=== PATIENT | female | born 1925 | race Asian ===

== ENCOUNTER → 2016-07-06 | Outpatient (CLI) | payer MEDICARE, BC ==
[~2016-07-06] MED LIST: ASPI-664 PO; ATOR10TA65 PO; CYAN100 PO; DIGO125T PO; DONE10TA7 PO; LEVO150T67 PO; MEMA5TAB PO; METO-407 PO; OMEP20CA16 PO; VALS1TAB78 PO
--- NOTE | 2016-07-06 16:31 | RADRPT ---
PROCEDURE: US upper extremity arterial. CLINICAL INDICATION: Pain decreased right radial pulse TECHNIQUE: Multiple sonographic images of the bilateral upper extremity arteries was obtained util izing grayscale, color-flow, compressive sonography and doppler imaging. The images were reviewed o n a PACS workstation. COMPARISON: None. FINDINGS: Velocities and waveforms were obtained as described below. Right arm Right subclavian artery: 32 cm/s; monophasic waveforms Right axillary artery: 54 cm/s; monophasic waveforms Right brachial artery: 40 cm/s; monophasic waveforms Right radial artery: 16 cm/s; monophasic waveforms Right ulnar artery: 22 cm/s; monophasic waveforms Left arm Left subclavian artery: 61 cm/s; biphasic waveforms Left axillary artery: 68 cm/s; biphasic waveforms Left brachial artery: 136 cm/s; biphasic waveforms Left radial artery: 42 cm/s; biphasic waveforms Left ulnar artery: 45 cm/s; biphasic waveforms IMPRESSION: Diffuse monophasic waveforms in the right upper extremity arteries with decreased velocities, suspic ious for a proximal stenosis. Further evaluation with a CT angiogram is recommended. RPTAT: AA .Tolu Webb MD, MD Date Time Electronically viewed and signed by .Tolu Webb MD, on 07/06/2016 16:31 .S/
== END | disposition home or self-care (01) ==
LOC: VAS 14:28
PROVIDERS: ATTEND Internal Medicine
DX: R09.89 Other specified symptoms and signs involving the circulatory and respiratory systems (principal)
CPT/HCPCS: 93923

== ENCOUNTER 2016-08-29 08:32 | Inpatient (IN) | payer MEDICARE, BC ==
[~2016-08-29] VITALS: Ht 149.9 cm; Wt 61.6 kg
[2016-08-29] MEDS ORDERED: SOD CHLORIDE 0.9% 500 ML IV STA (08:41)
--- NOTE | 2016-08-29 08:55 | ERD ---
ER Documentation Chief Complaint Date/Time DATE: 08/29/16 TIME: 08:52 Chief Complaint ALOC more than normal mental status HPI 89-year-old female who is DNR with comfort measures only who presents via EMS. It appears that the patient's daughter arrived at [facility] facility and felt that she was not opening her eyes, she usually opens her eyes. She requested transport. The patient has an advanced directive that states the patient should only be transported if comfort measures cannot be met. The patient does have a history of stroke with residual aphasia, left-sided weakness. Remainder of HPI is very limited. ROS All systems reviewed and are negative except as per history of present illness. Medications Home Meds Reported Medications Magnesium Hydroxide* (Milk Of Magnesia*) 400 Mg/5 Ml Oral.susp, 30 ML PO Q24H Y for CONSTIPATION, ML 08/29/16 Memantine* (Namenda*) 10 Mg Tablet, 10 MG PO DAILY, #30 TAB 08/29/16 Escitalopram Oxalate* (Lexapro*) 5 Mg Tablet, 5 MG PO DAILY, #30 TAB 08/29/16 Donepezil* (Aricept*) 10 Mg Tablet, 10 MG PO DAILY, TAB 08/29/16 Atorvastatin* (Atorvastatin*) 80 Mg Tablet, 80 MG PO QHS, #30 TAB 08/29/16 Digoxin* (Digitek*) 125 Mcg Tablet, 0.125 MG PO DAILY, TAB 04/18/16 Omeprazole* (Omeprazole*) 20 Mg Capsule.dr, 20 MG PO DAILY, #30 CAP 04/18/16 Levothyroxine Sodium* (Levothyroxine Sodium*) 150 Mcg Tablet, 150 MCG PO BEFORE BREAKFAST, #30 TAB 04/18/16 Discontinued Reported Medications Valsartan-Hydrochlorothiazide (Valsartan-HCTZ) 160-25 Mg Tablet, 1 TAB PO DAILY , #30 TAB 04/25/16 Cyanocobalamin* (Vitamin B12*) Unknown Strength Tab, MCG PO DAILY, TAB 04/18/16 Aspirin* (Aspirin* EC) 81 Mg Tablet.dr, 81 MG PO DAILY, TAB 04/18/16 Memantine* (Namenda*) 5 Mg Tablet, 10 MG PO DAILY, #30 TAB 04/18/16 Metoprolol Tartrate* (Lopressor*) 100 Mg Tablet, 100 MG PO BID, #60 TAB TAKE 50MG QAM AND 100MG QHS 04/18/16 Donepezil* (Donepezil*) 10 Mg Tablet, 10 MG PO QHS, #30 TAB 04/18/16 Atorvastatin Calcium (Atorvastatin Calcium) 10 Mg Tablet, 10 MG PO QHS, #30 TAB 04/18/16 Allergies Allergies: Coded Allergies: No Known Allergy (Unverified , 08/29/16) PMhx/Soc History of Surgery: Yes (cholecystectomy, appendectomy) Anesthesia Reaction: No Hx Neurological Disorder: No (DEMENTIA) Hx Respiratory Disorders: No Hx Cardiac Disorders: Yes (AFIB,Pacemaker, HTN, CAD) Hx Psychiatric Problems: No Hx Miscellaneous Medical Probl: Yes (HTN, osteoporosis, OA, dementia, a-fib, B12 def, HLD, LDD, L wrist fx) Hx Alcohol Use: No Hx Substance Use: No Hx Tobacco Use: No FmHx Family History: No diabetes Physical Exam Vitals Vital Signs Date Time Temp Pulse Resp B/P Pulse Ox O2 Delivery O2 Flow Rate FiO2 08/29/16 10:55 99.1 103 24 104/55 99 Room Air 08/29/16 09:51 Nasal Cannula 2 08/29/16 08:44 99.5 93 33 79/70 99 Physical Exam General: No significant distress Head: Normocephalic, atraumatic. Eyes: Pupils equally reactive, EOM intact, and open eyes spontaneously ENT: Moist mucous membranes Neck: Supple, no lymphadenopathy Respiratory: Lungs clear bilaterally, no distress Cardiovascular: RRR, no murmurs, rubs, or gallops Abdominal: Soft, non-tender, non-distended, no peritoneal signs : Deferred MSK: Moving right upper extremity, residual hemiparesis of left side of the body Neurologic: Limited exam, and encephalopathic, motor exam as above Skin: No rash, no significant breakdown Psych: Unable to assess Result Diagram: 08/29/1694408/29/1645 Results 24 hrs Laboratory Tests Test 08/29/16 09:45 08/29/16 10:25 White Blood Count 14.810^3/ul Red Blood Count 3.3610^6/ul Hemoglobin 9.7g/dl Hematocrit 31.0% Mean Corpuscular Volume 92.3fl Mean Corpuscular Hemoglobin 28.9pg Mean Corpuscular Hemoglobin Concent 31.3g/dl Red Cell Distribution Width 16.1% Platelet Count 37506^3/UL Mean Platelet Volume 10.4fl Neutrophils % % Eosinophils % % Neutrophils # 10^3/ul Eosinophils # 10^3/ul Prothrombin Time 14.0Sec Prothrombin Time Ratio 1.1 INR International Normalized Ratio 1.08 Activated Partial Thromboplast Time 28.1Sec Sodium Level 141mmol/L Potassium Level 3.6mmol/L Chloride Level 103mmol/L Carbon Dioxide Level 26mmol/L Anion Gap 16 Blood Urea Nitrogen 51mg/dl Creatinine 0.91mg/dl Glucose Level 184mg/dl Lactic Acid Level 2.1mmol/L Calcium Level 9.6mg/dl Total Bilirubin 0.8mg/dl Direct Bilirubin 0.20mg/dl Indirect Bilirubin 0.8mg/dl Aspartate Amino Transf (AST/SGOT) 150IU/L Alanine Aminotransferase (ALT/SGPT) 186IU/L Alkaline Phosphatase 240IU/L Troponin I 0.124ng/ml Total Protein 6.7g/dl Albumin 3.0g/dl Globulin 3.70g/dl Albumin/Globulin Ratio 0.81 Urine Color ORANGE Urine Clarity SLIGHTLY CLOUDY Urine pH 5.0 Urine Specific [place] 1.020 Urine Ketones NEGATIVE Urine Nitrite NEGATIVE Urine Bilirubin 1+ Urine Ictotest POSITIVE Urine Urobilinogen 1.0 E.U./dL Urine Leukocyte Esterase 2+ Urine Microscopic RBC NONE SEEN/HPF Urine Microscopic WBC >50/HPF Urine Squamous Epithelial Cells FEW Urine Bacteria MODERATE Urine Hemoglobin NEGATIVE Urine Glucose NEGATIVE% Urine Total Protein 1+ Current Medications Medications (Trade) Dose Ordered Sig/Lizett Route PRN Reason Start Time Stop Time Status Last Admin Dose Admin Sodium Chloride (NS) 500 ml @ 500 mls/hr Q1H STAT IV 08/29/16 08:41 08/29/16 09:40 DC 08/29/16 08:58 Sodium Chloride 2110 ml 2,110 ml BOLUS OVER 2 HOURS STAT IV* 08/29/16 09:31 08/29/16 09:32 DC 08/29/16 10:04 Cefepime HCl 50 ml @ 100 mls/hr ONCE STAT IVPB 08/29/16 10:46 08/29/16 11:15 DC 08/29/16 10:57 Vancomycin HCl (Vancocin) 250 ml @ 125 mls/hr ONCE ONCE IVPB 08/29/16 11:00 08/29/16 12:59 08/29/16 11:36 Aspirin 162 mg 162 mg ONCE ONCE PO 08/29/16 11:00 08/29/16 11:01 DC 08/29/16 10:56 Clindamycin HCl/ Dextrose (Cleocin 600 Mg/ D5W (Pmx)) 50 ml @ 50 mls/hr ONCE IVPB 08/29/16 12:30 08/29/16 13:29 Ondansetron HCl (Zofran Inj) 4 mg BRIDGE ORDER PRN IV NAUSEA AND/OR VOMITING 08/29/16 12:30 08/30/16 12:29 Acetaminophen (Tylenol Tab) 650 mg ER BRIDGE PRN PO MILD PAIN/FEVER 08/29/16 12:30 08/30/16 12:29 Procedures/MDM EKG, MONITORS, & DIAGNOSTIC IMAGING: EKG: I reviewed and interpreted a 12-lead EKG. Rhythm: A. fib, rate controlled Ectopy: None Intervals: No abnormalities ST segments: No elevations or depressions T waves: No contiguous inversions Chest x-ray: I reviewed and interpreted a 1 view of the chest Mediastinum: No enlargement Cardiac silhouette: No cardiomegaly Airspace: Right-sided pneumonia Bones: No evidence of fracture CTB IMPRESSION: 1. No intracranial hemorrhage, mass effect or midline shift. 2. An area of subacute to chronic infarct in the right MCA distribution with cortical laminar necrosis, as described above. No associated mass effect. 3. Mild to moderate generalized atrophy. Mild microangiopathic ischemic change. 4. Intracranial atherosclerosis. RPTAT: BB LAB INTERPRETATION: Leukocytosis of 14.8, hemoglobin of 9.7, lactic acid of 2.1, troponin elevation of 0.124 MEDICAL DECISION MAKING: The patient presents the emergency room because of decreased responsiveness. The patient has progressive encephalopathy, she has an advanced directive that clearly states she should only be transferred if comfort measures cannot be met. Her transfer at this point seems to not be consistent with these goals of care. The patient does have hypotension but no fever. The patient appears to have slight dehydration on clinical exam. The family member is not readily available upon arrival. I would like to avoid unnecessary laboratory testing and diagnostic imaging given this patient's goals of care. I believe gentle fluid resuscitation would be appropriate to assist in her comfort however aggressive resuscitation, laboratory testing, antibiotics do not seem to be consistent with this patient's goals of care. We will await family member arrival to discuss plan of care. ER COURSE: The family member arrived. She states that she did not understand the initial goals of care. She wishes the patient to be DNR and DNI with no central line but otherwise aggressive care. I explained to the patient's daughter that comfort measures may be appropriate in this patient's age and comorbidities. She is not ready to make that decision. She wishes to have laboratory testing. Therefore laboratory analysis and diagnostic imaging was initiated. The patient does have Sirs criteria with a low-grade fever, leukocytosis and tachycardia. She has evidence of possible aspiration pneumonia as the patient' s daughter states that she is fed the patient even though she was told not to. Vancomycin, cefepime and clindamycin were provided after 30 cc/kg bolus of saline and blood cultures. The patient's blood pressure has been responsive. Lactic acid around 2. No indication for central line, pressors at this time. continue supportive measures and fluid resuscitation. Based on the patient's goals of care, primary care provider would like to admit to medical surgical floor. I believe this to be reasonable. I kept the patient and/or family informed of laboratory and diagnostic imaging results throughout the emergency room course. DISPOSITION PLAN: Medical surgical admission CONSULTATION: Accepting care team and consultations: I discussed the current laboratory data, diagnostic imaging and emergency care provided. Admitting team: Dr. Young Admitting team indication: Insurance directed Sepsis Documentation: Patient's infectious symptoms have not stabilized and the patient is at risk of rapid decompensation. The patient will be admitted for careful hydration, antibiotic therapy, and infectious source control. SEVERE SEPSIS CRITERIA: Infectious source: Aspiration pneumonia End organ damage indicated by: [Lactate > 2.0 mmol/L Troponin elevation SEPSIS MANAGEMENT Time of recognition of severe sepsis/septic shock: 10:27 AM 3 HOUR BUNDLE Blood cultures x 2 before broad-spectrum antibiotics: Yes 30 ml/kg NS bolus Completed Initial lactate 2.1 Repeat lactate pending SEPTIC SHOCK ASSESSMENT: No lactic acid > 4.0 No persistent hypotension (SBP < 90 or 40 mmHg drop, MAP < 65) despite 30 mL/kg IV fluid bolus VOLUME REASSESSMENT FOR SEPTIC SHOCK: Reevaluation Time: 12:13 PM Temperature of 99.1, heart rate 103, respiratory rate 24, blood pressure 104/55 , pulse ox 99 on room air Heart irregularly irregular Lungs No crackles Skin Warm & dry Cap Refill Less than 2 seconds Peripheral pulses Radially present PERSISTENT HYPOTENSION TREATMENT: Comfort care yes Central line Not Required Vasopressor started Not required I considered further perfusion assessment with CVP measurement, SCVO2, bedside ultrasound volume assessment, passive leg raise, trial of further fluid bolus. And proceeded with 30 ml/kg fluid bolus of NSS, broad spectrum antbiotics, and admission. CRITICAL CARE Critical care time 35 minutes Emergent fluid management while maintaining close respiratory support. Provision of immediate and broad-spectrum antibiotic therapy. Simultaneous assessment for possible sources in order to direct targeted therapy. Consideration for invasive and chemical support to prevent cardiopulmonary collapse. Critical care time is independent of procedures performed. Departure Diagnosis: Primary Impression: Severe sepsis Additional Impressions: Encephalopathy chronic Aspiration pneumonia Aspiration pneumonia type: unspecified Laterality: right Lung location: unspecified part of lung Qualified Code: J69.0 - Aspiration pneumonia of right lung, unspecified aspiration pneumonia type, unspecified part of lung Non-ST elevation myocardial infarction (NSTEMI) DNR (do not resuscitate) DNI (do not intubate) Condition: JENISE Jean-Baptiste MD Aug 29, 2016 08:55
[2016-08-29] MEDS ORDERED: SODIUM CHLORIDE 0.9% 1L BAG IV* STA (09:31)
[2016-08-29 10:04] LABS: ADD SCAN DIFF NO
[2016-08-29 10:10] LABS: ABNORMAL IP MESSAGE 1; HEMOGLOBIN 9.7 g/dl (12.0-16.0); MEAN CORPUSCULAR HEMOGLOBIN 28.9 pg (29.0-33.0); MEAN CORPUSCULAR HGB CONC 31.3 g/dl (32.0-37.0); MEAN CORPUSCULAR VOLUME 92.3 fl (82.0-101.0); MEAN PLATELET VOLUME 10.4 fl (7.4-10.4); PLATELET COUNT 219 10^3/UL (140-415); RED BLOOD COUNT 3.36 10^6/ul (4.20-5.40); RED CELL DISTRIBUTION WIDTH 16.1 % (11.5-14.5); WHITE BLOOD COUNT 14.8 10^3/ul (4.8-10.8)
[2016-08-29] MEDS ORDERED: ATOR80TA75 PO (10:11)
[2016-08-29] MEDS ORDERED: DONE10TA7 PO (10:12)
[2016-08-29] MEDS ORDERED: MEMA10TA16 PO (10:13)
[2016-08-29] MEDS ORDERED: ESCI5TAB PO (10:13)
[2016-08-29] MEDS ORDERED: MAGN400O4 PO (10:14)
[2016-08-29 10:22] LABS: CREATININE 0.91 mg/dl (0.44-1.00)
[2016-08-29 10:23] LABS: ALBUMIN/GLOBULIN RATIO 0.81; BILIRUBIN,DIRECT 0.2 mg/dl (0.00-0.20); BILIRUBIN,INDIRECT 0.8 mg/dl (0-1.1); CALCIUM 9.6 mg/dl (8.4-10.2); TOTAL PROTEIN 6.7 g/dl (6.1-8.1)
[2016-08-29 10:28] LABS: INR 1.08; PARTIAL THROMBOPLASTIN TIME 28.1 Sec (25.0-35.0); PT RATIO 1.1
--- NOTE | 2016-08-29 10:28 | RADRPT ---
PROCEDURE: XR Chest. CLINICAL INDICATION: Shortness of breath TECHNIQUE: Single frontal chest x-ray. COMPARISON: 04/25/2016 FINDINGS: There is a left chest wall dual lead pacer. The cardiac size is mildly enlarged, stable. Aortic vasc ular calcifications are demonstrated. There is no pulmonary vascular congestion. There is questionab le right middle lobe infiltrates. Minimal bibasilar atelectasis is present. The lungs are otherwise clear. No consolidation, effusion, or pneumothorax. Mild degenerative changes of the visualized oss eous structures are visualized. IMPRESSION: 1. Questionable right middle lobe infiltrate obscuring the right heart border. 2. Minimal bibasilar atelectasis. 3. Atherosclerosis with stable cardiomegaly. RPTAT: JJ .Eric Yuan MD, Date Time Electronically viewed and signed by .Eric Yuan MD, MD on 08/29/2016 10:27 .A/
[2016-08-29 10:41] LABS: BILIRUBIN,TOTAL 0.8 mg/dl (0.2-1.3); POTASSIUM 3.6 mmol/L (3.5-5.1)
[2016-08-29 10:44] LABS: TROPONIN-I 0.124 ng/ml (0.00-0.12)
[2016-08-29] MEDS ORDERED: CEFEPIME 2GM/50 ML (PMX) 50 ML IVPB STA (10:46)
[2016-08-29] MEDS ORDERED: VANCOMYCIN 1 GM (PMX) 250 ML IVPB ONE (11:00)
[2016-08-29] MEDS ORDERED: ASPIRIN 81 MG TAB PO ONE (11:00)
--- NOTE | 2016-08-29 11:04 | RADRPT ---
PROCEDURE: CT Brain without contrast. CLINICAL INDICATION: Headache. Possible sepsis. TECHNIQUE: A CT of the brain was performed on a multidetector CT scanner utilizing axial sections from the skull base through the vertex without contrast. Images were reviewed on a high-resolution [email or web address] workstation. Exam CTDI = 44.73 mGy and the DLP = 720.23 mGy-cm. One or more of the following dose reduction techniques were used: Automated exposure control Adjustment of the mA and/or kV according to patient size. Use of iterative reconstruction technique. COMPARISON: CT head 04/13/2015 FINDINGS: There is an area of subacute to chronic infarct in the right MCA distribution within the right poste rior frontal lobe, anterior parietal lobe involving the right frontal operculum, the motor strip and post central gyrus with gyriform hyper densities suggesting laminar necrosis. There is no signific ant associated mass effect or midline shift. There is mild to moderate generalized volume loss with commensurate enlargement of the ventricles and cortical sulci. There is no evidence of intracranial hemorrhage, mass effect or midline shift. No abnormal intra-axial or extra-axial fluid collections are seen. The density of the brain is normal and the pollock/white matter differentiation is well pre served. Mild patchy diffuse deep white matter microangiopathic ischemic change is seen. The osse ous structures are unremarkable. Paranasal sinuses are clear. Vascular calcifications are identifie d. IMPRESSION: 1. No intracranial hemorrhage, mass effect or midline shift. 2. An area of subacute to chronic infarct in the right MCA distribution with cortical laminar necro sis, as described above. No associated mass effect. 3. Mild to moderate generalized atrophy. Mild microangiopathic ischemic change. 4. Intracranial atherosclerosis. RPTAT: BB .Henok Merchant MD, Date Time Electronically viewed and signed by .Henok Merchant MD, on 08/29/2016 11:03 .O/
[2016-08-29 11:08] LABS: ADD UMIC YES; URINE BILIRUBIN (Dip) 1+ (NEGATIVE); URINE BLOOD (Dip) NEGATIVE (NEGATIVE); URINE COLOR ORANGE (YELLOW); URINE GLUCOSE (Dip) NEGATIVE (NEGATIVE); URINE KETONES (Dip) NEGATIVE (NEGATIVE); URINE LEUKOCYTE ESTERASE (Dip) 2+ (NEGATIVE); URINE NITRITE (Dip) NEGATIVE (NEGATIVE); URINE TOTAL PROTEIN (Dip) 1+ (NEGATIVE); URINE UROBILINOGEN (Dip) 1.0 E.U./dL (0.1-1.0)
[2016-08-29 11:31] LABS: URINE RBCS NONE SEEN /HPF (0)
[2016-08-29 11:32] LABS: BACTERIA,URINE MODERATE; ICTOTEST POSITIVE (NEGATIVE); SQUAMOUS EPITHELIAL CELL,UR FEW
[2016-08-29] MEDS ORDERED: ACETAMINOPHEN 325 MG TAB PO PRN ×2 (12:30→15:00)
[2016-08-29] MEDS ORDERED: ONDANSETRON 4 MG INJ IV PRN ×2 (12:30→15:00)
[2016-08-29] MEDS ORDERED: CLINDAMYCIN 600 MG/D5W (PMX) 50 ML IVPB SCH (12:30)
[2016-08-29 13:10] VITALS: TEMP 98.7
[2016-08-29 13:49] VITALS: BP 118/60; PULSE 85; RESP 18
[2016-08-29 14:04] VITALS: Ht 149.9 cm; Wt 61.6 kg
[2016-08-29 14:11] LABS: LYMPHOCYTES # 0.6 10^3/ul (0.8-2.9); MONOCYTE # 0.3 10^3/ul (0.3-0.9); NEUTROPHIL # 11.8 10^3/ul (1.6-7.5)
[2016-08-29] MEDS ORDERED: NACL 0.9% 3 ML SYG IV SCH (15:00)
[2016-08-29] MEDS: DEXTROSE 5%-0.45% NACL 1,000 ML IV SCH (15:32)
[2016-08-29] MEDS ORDERED: MAGNESIUM HYDROXIDE 30ML CUP PO PRN (19:30)
--- NOTE | 2016-08-29 19:50 | PREOPHP ---
DATE OF ADMISSION: 08/29/2016 REASON FOR ADMISSION: Altered mental status. HISTORY OF PRESENT ILLNESS: This 89-year-old female was transferred from [facility] because of some change in mental status. The patient was also in atrial fibrillation, which is not new, but her heart rate was fluctuating. The patient's daughter was concerned and wanted her t ransferred to the hospital. The patient has been a DNR, DNI, comfort measures; however, the patient 's family wanted further evaluation this morning in the emergency room. The patient is unresponsive and unable to give any history. The history was taken from the chart and from talking to the [facility] ter. The patient had a stroke approximately 4 weeks ago. She was at [facility] uro unit after the stroke. The patient has evidence of a right MCA distribution CVA on her CAT scan . She has had left-sided weakness, however, she now does not move arms or legs. The patient has langley d dysphagia and has a G-tube in place. The patient also had an elevated white blood count in the em ergency room with anemia. Her chemistry did show a very slightly elevated troponin level at 0.24. The emergency room doctor, Dr. Cm, did speak to the patient's family. Dr. Cm did speak to me an d we decided to put the patient on a medical surgical floor. PAST MEDICAL HISTORY: The patient has an extensive past medical history. She has chronic atrial fi brillation, hypothyroidism, primary hyperparathyroidism, osteoporosis, cardiac pacemaker, dementia e gretel prior to her recent stroke, history of rectal bleeding, osteoarthritis, frequent falls. PAST SURGICAL HISTORY: Cholecystectomy. CURRENT MEDICATIONS: Include the followin. Aricept 10 mg a day. 2. Atorvastatin 80 mg a day. 3. Digoxin 0.125 mg a day. 4. Escitalopram 5 mg daily. 5. Namenda 10 mg daily. 6. Magnesium hydroxide 400 mg daily. 7. Omeprazole 20 mg a day. 8. Levothyroxine 150 mcg a day. PHYSICAL EXAMINATION: VITAL SIGNS: At this time, temperature 98.3, pulse of 85, respirations 18, blood pressure 118/60, O 2 saturation 95% on room air. GENERAL: The patient is unresponsive. She is not moving her arms or legs. She does not open her e yes or follow simple commands. HEENT: Head normocephalic. No signs of trauma. Nose and mouth normal. NECK: Supple without neck vein distention. LUNGS: Clear to auscultation. HEART: Irregular irregular rhythm. ABDOMEN: With a PEG tube in place, not distended, soft. EXTREMITIES: No peripheral edema. NEUROLOGIC: As mentioned above, unresponsive, not moving her arms or legs spontaneously, not openin g eyes. No response to verbal commands. IMPRESSION: 1. 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 Since that same time, the patient has been essentially unresponsive. She has not shown any real improvement since the cerebrovascular accident. 2. Chronic atrial fibrillation. 3. Altered level of consciousness, according to family, although I am not sure this is just her wax ing and waning from previous cerebrovascular accident. 4. Right middle lobe infiltrate obscuring the right heart border, right-sided pneumonia, possible a spiration. PLAN: 1. I had a discussion with the patient's daughter regarding her advanced directives. Previously kishan cooper was a DNR, DNI, no central lines. I discussed this with the daughter and this will be continu ed. I also recommended that we aim for comfort measures in this patient. I explained to the [facility] er that since the patient had the CVA 3 to 4 weeks ago, she has not made any improvement. I recomme nded, and the patient's daughter agreed to, comfort measures. We will continue antibiotics and IV f luids for now. 2. Check labs in the morning. 3. No aggressive treatment at this time. Dictated By: JENISE GERMAN MD, ND/DYANA Conf#: [id number] DID#: [id number]
[2016-08-29 20:46] VITALS: BP 142/72; RESP 19
[2016-08-29] MEDS: CEFEPIME 1GM/50 ML (PMX) 50 ML IVPB SCH (21:38)
[2016-08-30] MEDS: CLINDAMYCIN 300 MG/D5W (PMX) 50 ML IVPB SCH ×2 (02:17→05:35)
[2016-08-30] MEDS: DEXTROSE 5%-0.45% NACL 1,000 ML IV SCH ×2 (02:18→19:56)
[2016-08-30 05:30] LABS: ADD SCAN DIFF NO
[2016-08-30 05:50] LABS: ALBUMIN 2.4 g/dl (3.3-4.9); ALBUMIN/GLOBULIN RATIO 0.75; BILIRUBIN,INDIRECT 0.3 mg/dl (0-1.1); BILIRUBIN,TOTAL 0.3 mg/dl (0.2-1.3); CALCIUM 9.2 mg/dl (8.4-10.2); CREATININE 0.82 mg/dl (0.44-1.00); POTASSIUM 3.2 mmol/L (3.5-5.1); TOTAL PROTEIN 5.6 g/dl (6.1-8.1)
[2016-08-30 05:51] LABS: ABNORMAL IP MESSAGE 1; BASOPHILS % 0.1 % (0.0-2.0); HEMATOCRIT 27.1 % (37.0-47.0); HEMOGLOBIN 8.7 g/dl (12.0-16.0); LYMPHOCYTES # 0.5 10^3/ul (0.8-2.9); LYMPHOCYTES % 3.9 % (15.0-51.0); MEAN CORPUSCULAR HEMOGLOBIN 29.3 pg (29.0-33.0); MEAN CORPUSCULAR HGB CONC 32.1 g/dl (32.0-37.0); MEAN CORPUSCULAR VOLUME 91.2 fl (82.0-101.0); MEAN PLATELET VOLUME 10.2 fl (7.4-10.4); MONOCYTE # 0.3 10^3/ul (0.3-0.9); MONOCYTES % 2.8 % (0.0-11.0); NEUTROPHIL # 10.8 10^3/ul (1.6-7.5); PLATELET COUNT 171 10^3/UL (140-415); RED BLOOD COUNT 2.97 10^6/ul (4.20-5.40); RED CELL DISTRIBUTION WIDTH 15.8 % (11.5-14.5); WHITE BLOOD COUNT 11.6 10^3/ul (4.8-10.8)
[2016-08-30] MEDS ORDERED: PANTOPRAZOLE (EC) 40 MG TAB PO SCH (06:00)
[2016-08-30 06:26] LABS: NEUTROPHILS % 92.8 % (39.0-77.0)
[2016-08-30] MEDS: LANSOPRAZOLE 30 MG CAP GTB SCH (06:50)
[2016-08-30] MEDS ORDERED: LEVOTHYROXINE 150 MCG TAB GTB SCH (07:00)
[2016-08-30] MEDS ORDERED: LEVOTHYROXINE 150 MCG TAB PO SCH (07:00)
[2016-08-30 08:06] VITALS: BP 117/47; RESP 20
--- NOTE | 2016-08-30 08:46 | PN ---
Date/Time of Note Date/Time of Note DATE: 08/30/16 TIME: 08:43 Assessment/Plan VTE Prophylaxis VTE Prophylaxis Intervention: other Lines/Catheters IV Catheter Type (from Nrsg): Peripheral IV Assessment/Plan Assessment/Plan 1. Altered mental status, labs and abg to be obtained, with hx prior cva and left hemipareses. 2. Elevated troponin, will repeat, and cards to see 3. Abnl liver tests, ultz ordered 4. ? Pneumonia, Ct chest ordered, id to see, antibiotics modified Subjective 24 Hr Interval Summary Subjective hx not possible: other (does not respond to name or gentle painful stim) Exam/Review of Systems Vital Signs Vitals Vital Signs Date Time Temp Pulse Resp B/P Pulse Ox O2 Delivery O2 Flow Rate FiO2 08/30/16 08:06 98.8 95 20 117/47 96 08/29/16 13:49 Room Air 08/29/16 09:51 2 Intake and Output 08/29/16 08/29/16 08/30/16 14:59 22:59 06:59 Intake Total 3410 ml 50 ml 1350 ml Balance 3410 ml 50 ml 1350 ml Exam Neck: No jvd Respiratory: clear to auscultation Cardiovascular: No irregular rhythm Gastrointestinal: soft Extremities: No edema Neurological: No unresponsive Results Result Diagram: 08/30/160 08/30/16 0440 Results 24 hrs Laboratory Tests Test 08/29/16 09:45 08/29/16 10:25 08/29/16 11:20 08/29/16 16:55 White Blood Count 14.8 #H Red Blood Count 3.36 #L Hemoglobin 9.7 #L Hematocrit 31.0 L Mean Corpuscular Volume 92.3 Mean Corpuscular Hemoglobin 28.9 L Mean Corpuscular Hemoglobin Concent 31.3 L Red Cell Distribution Width 16.1 H Platelet Count 219 Mean Platelet Volume 10.4 # Neutrophils % 80.0 H Band Neutrophils % 14.0 H Lymphocytes % 4.0 L Monocytes % 2.0 Eosinophils % Neutrophils # 11.8 H Lymphocytes # 0.6 L Monocytes # 0.3 Eosinophils # Prothrombin Time 14.0 Prothrombin Time Ratio 1.1 INR International Normalized Ratio 1.08 Activated Partial Thromboplast Time 28.1 Sodium Level 141 Potassium Level 3.6 Chloride Level 103 Carbon Dioxide Level 26 Anion Gap 16 Blood Urea Nitrogen 51 H Creatinine 0.91 Glucose Level 184 Lactic Acid Level 2.1 2.7 H 2.9 H Calcium Level 9.6 Total Bilirubin 0.8 Direct Bilirubin 0.20 Indirect Bilirubin 0.8 Aspartate Amino Transf (AST/SGOT) 150 H Alanine Aminotransferase (ALT/SGPT) 186 H Alkaline Phosphatase 240 H Troponin I 0.124 *H Total Protein 6.7 Albumin 3.0 L Globulin 3.70 H Albumin/Globulin Ratio 0.81 Urine Color ORANGE Urine Clarity SLIGHTLY CLOUDY Urine pH 5.0 Urine Specific [place] 1.020 Urine Ketones NEGATIVE Urine Nitrite NEGATIVE Urine Bilirubin 1+ H Urine Ictotest POSITIVE Urine Urobilinogen 1.0 E.U./dL Urine Leukocyte Esterase 2+ H Urine Microscopic RBC NONE SEEN Urine Microscopic WBC >50 Urine Squamous Epithelial Cells FEW Urine Bacteria MODERATE Urine Hemoglobin NEGATIVE Urine Glucose NEGATIVE Urine Total Protein 1+ H Test 08/30/16 04:40 White Blood Count 11.6 #H Red Blood Count 2.97 L Hemoglobin 8.7 L Hematocrit 27.1 L Mean Corpuscular Volume 91.2 Mean Corpuscular Hemoglobin 29.3 Mean Corpuscular Hemoglobin Concent 32.1 Red Cell Distribution Width 15.8 H Platelet Count 171 # Mean Platelet Volume 10.2 Neutrophils % 92.8 H Lymphocytes % 3.9 L Monocytes % 2.8 Eosinophils % 0.0 Basophils % 0.1 Nucleated Red Blood Cells % 0.0 Neutrophils # 10.8 H Lymphocytes # 0.5 L Monocytes # 0.3 Eosinophils # 0.0 Basophils # 0.0 Nucleated Red Blood Cells # 0.0 Sodium Level 140 Potassium Level 3.2 L Chloride Level 113 H Carbon Dioxide Level 21 Anion Gap 9 # Blood Urea Nitrogen 40 #H Creatinine 0.82 Glucose Level 118 # Calcium Level 9.2 Total Bilirubin 0.3 Direct Bilirubin 0.00 # Indirect Bilirubin 0.3 Aspartate Amino Transf (AST/SGOT) 73 H Alanine Aminotransferase (ALT/SGPT) 123 H Alkaline Phosphatase 164 H Total Protein 5.6 #L Albumin 2.4 L Globulin 3.20 Albumin/Globulin Ratio 0.75 Thyroid Stimulating Hormone (TSH) 0.149 L Digoxin Level 0.7 L Medications Medications Current Medications Ondansetron HCl 4 mg 4 mg Q6H PRN IV NAUSEA AND/OR VOMITING; Start 08/29/16 at 15:00 Dextrose/Sodium Chloride 1,000 ml @ 70 mls/hr [id number] IV Last administered on 08/30/16 02:18; Admin Dose 100 MLS/HR; Start 08/29/16 at 15:00 Cefepime HCl (Maxipime 1gm/50 ml (Pmx)) 50 ml @ 100 mls/hr Q12 IVPB Last administered on 08/29/16 21:38; Admin Dose 100 MLS/HR; Start 08/29/16 at 21:00 Acetaminophen (Tylenol Liquid) 650 mg Q6H PRN GTB PAIN LEVEL 1-3 OR FEVER; Start 08/30/16 at 06:00 Digoxin (Digoxin) 0.125 mg DAILY@13 GTB ; Start 08/30/16 at 13:00 Magnesium Hydroxide (Milk Of Mag) 30 ml Q24H PRN GTB CONSTIPATION; Start at 19:30 Lansoprazole (Prevacid) 30 mg DAILY@06 GTB Last administered on 08/30/16 06:50 ; Admin Dose 30 MG; Start 08/30/16 at 07:00 Potassium Chloride (Potassium Chloride Pwd/Soln) 40 meq BID GTB ; Start at 09:00; Stop 08/30/16 at 14:00; Status UNV Atorvastatin Calcium (Lipitor) 40 mg HS GTB ; Start 08/30/16 at 21:00; Status UNV CHANG BECERRA MD Aug 30, 2016 08:46
[2016-08-30] MEDS: CEFEPIME 1GM/50 ML (PMX) 50 ML IVPB SCH (08:52)
[2016-08-30] MEDS ORDERED: ACETAMINOPHEN 325 MG TAB GTB PRN (09:00)
--- NOTE | 2016-08-30 09:09 | CONS ---
Date/Time of Note Date/Time of Note DATE: 08/30/16 TIME: 08:58 Assessment/Plan Assessment/Plan Chief Complaint/Hosp Course Impression: # troponin elevation- likely type ii nstemi. flat change on repeat testing, unlikely to be ACS, does have twi on ekg, but no reported symptoms otherwise and HD stable. recent echo with nl lv systolic function. given comorbidities and recent CVA, would recommend medical mgmt at this time. # atrial fibrillation- non valvular, elevated chads score, but had previous falls and off anticoag. 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 d/w family, hold off on anticoag. cont rate control # s/p ppm- recent interrogation will obtain report # h/o htn- controlled # AMS- ? related to infection in setting of recent CVA, defer to ID/primary team Recommendations: - cont statin - cont digoxin, check level - add metoprolol if hrs elevated and bp stable - consider asa daily, would not recommend anticoag as unclear residential benefit - avoid further cardiac testing unless clinical change d/w family at bedside, will follow Problems: Consultation Date/Type/Reason Admit Date/Time Aug 29, 2016 at 12:06 Date of Consultation: Aug 30, 2016 Type of Consultation: Cardiology Reason for Consultation Elevated Troponin Referring Provider: CHANG BECERRA MD Hx of Present Illness Ms. Rodriguez is an 89 y.o. woman with h/o of paroxysmal atrial fibrillation not on anticoagulation due to falls, HTN, dementia, tachy marcy syndrome s/p PPM placement. Pt unfortunately with recent L sided CVA, was admitted to [facility] and had residual L sided weakness and cognitive impairment. Pt currently admitted from rehab facility due to worsening mental status and tachycardia. She has been found to have low level fever, leukocytosis with suspicion for pneumonia. Daughter at bedside provides history as pt is not alert or responsive to voice. Family states pt previous was alert, but not verbally communicating. Has been lethargic with AMS since monday. no report of any chest pain or difficulty breathing. EKG showed afib with hrs 90s and twi in inferior and lateral leads. Subjective hx not possible: pt non-verbal Past Medical History Atrial fibrillation (427.31) (I48.91) recent CVA 07/[address] [facility] s/p TPA with residual L sided weakness Dementia Congestive heart failure (428.0) (I50.9) Dizziness (780.4) (R42) Hyperlipidemia (272.4) (E78.5) Hypertension, essential (401.9) (I10) Orthostatic hypotension (458.0) (I95.1) Osteoarthritis (715.90) (M19.90) Sick sinus syndrome (427.81) (I49.5) s/p PPM Past Surgical History History of Cholecystectomy History of Laminectomy Lumbar History of Pacemaker Placement Family History Significant Family History: other (cad family hx+) Social History Never a smoker Never Drank Alcohol Retired Smoking Status: Never smoker Exam/Review of Systems Vital Signs Vitals Vital Signs Date Time Temp Pulse Resp B/P Pulse Ox O2 Delivery O2 Flow Rate FiO2 08/30/16 08:06 98.8 95 20 117/47 96 08/29/16 13:49 Room Air 08/29/16 09:51 2 Intake and Output 08/29/16 08/29/16 08/30/16 15:00 23:00 07:00 Intake Total 3410 ml 50 ml 1350 ml Balance 3410 ml 50 ml 1350 ml Exam Constitutional: non-verbal, other (does not open eyes to voice) Psych: other (unable to assess ) Head: atraumatic, normocephalic Eyes: nl conjunctiva, nl lids, nl sclera ENMT: mucosa pink and moist Neck: non-tender, supple, No bruits, No jvd Respiratory: clear to auscultation, normal air movement, other (anterior licea ) Cardiovascular: other (irregularly irregular, nl s1s2, ii/vi systolic lLSB), No S3, No S4, No edema Gastrointestinal: non-tender, soft Musculoskeletal: nl extremities to inspection Extremities: normal pulses Neurological: unresponsive Results Result Diagram: 08/30/1643908/30/16439 Results 24 hrs Laboratory Tests Test 08/29/16 09:45 08/29/16 10:25 08/29/16 11:20 08/29/16 16:55 White Blood Count 14.8 #H Red Blood Count 3.36 #L Hemoglobin 9.7 #L Hematocrit 31.0 L Mean Corpuscular Volume 92.3 Mean Corpuscular Hemoglobin 28.9 L Mean Corpuscular Hemoglobin Concent 31.3 L Red Cell Distribution Width 16.1 H Platelet Count 219 Mean Platelet Volume 10.4 # Neutrophils % 80.0 H Band Neutrophils % 14.0 H Lymphocytes % 4.0 L Monocytes % 2.0 Eosinophils % Neutrophils # 11.8 H Lymphocytes # 0.6 L Monocytes # 0.3 Eosinophils # Prothrombin Time 14.0 Prothrombin Time Ratio 1.1 INR International Normalized Ratio 1.08 Activated Partial Thromboplast Time 28.1 Sodium Level 141 Potassium Level 3.6 Chloride Level 103 Carbon Dioxide Level 26 Anion Gap 16 Blood Urea Nitrogen 51 H Creatinine 0.91 Glucose Level 184 Lactic Acid Level 2.1 2.7 H 2.9 H Calcium Level 9.6 Total Bilirubin 0.8 Direct Bilirubin 0.20 Indirect Bilirubin 0.8 Aspartate Amino Transf (AST/SGOT) 150 H Alanine Aminotransferase (ALT/SGPT) 186 H Alkaline Phosphatase 240 H Troponin I 0.124 *H Total Protein 6.7 Albumin 3.0 L Globulin 3.70 H Albumin/Globulin Ratio 0.81 Urine Color ORANGE Urine Clarity SLIGHTLY CLOUDY Urine pH 5.0 Urine Specific [place] 1.020 Urine Ketones NEGATIVE Urine Nitrite NEGATIVE Urine Bilirubin 1+ H Urine Ictotest POSITIVE Urine Urobilinogen 1.0 E.U./dL Urine Leukocyte Esterase 2+ H Urine Microscopic RBC NONE SEEN Urine Microscopic WBC >50 Urine Squamous Epithelial Cells FEW Urine Bacteria MODERATE Urine Hemoglobin NEGATIVE Urine Glucose NEGATIVE Urine Total Protein 1+ H Test 08/30/16 04:40 White Blood Count 11.6 #H Red Blood Count 2.97 L Hemoglobin 8.7 L Hematocrit 27.1 L Mean Corpuscular Volume 91.2 Mean Corpuscular Hemoglobin 29.3 Mean Corpuscular Hemoglobin Concent 32.1 Red Cell Distribution Width 15.8 H Platelet Count 171 # Mean Platelet Volume 10.2 Neutrophils % 92.8 H Lymphocytes % 3.9 L Monocytes % 2.8 Eosinophils % 0.0 Basophils % 0.1 Nucleated Red Blood Cells % 0.0 Neutrophils # 10.8 H Lymphocytes # 0.5 L Monocytes # 0.3 Eosinophils # 0.0 Basophils # 0.0 Nucleated Red Blood Cells # 0.0 Sodium Level 140 Potassium Level 3.2 L Chloride Level 113 H Carbon Dioxide Level 21 Anion Gap 9 # Blood Urea Nitrogen 40 #H Creatinine 0.82 Glucose Level 118 # Calcium Level 9.2 Total Bilirubin 0.3 Direct Bilirubin 0.00 # Indirect Bilirubin 0.3 Aspartate Amino Transf (AST/SGOT) 73 H Alanine Aminotransferase (ALT/SGPT) 123 H Alkaline Phosphatase 164 H Total Protein 5.6 #L Albumin 2.4 L Globulin 3.20 Albumin/Globulin Ratio 0.75 Thyroid Stimulating Hormone (TSH) 0.149 L Digoxin Level 0.7 L Medications Medications Current Medications Ondansetron HCl 4 mg 4 mg Q6H PRN IV NAUSEA AND/OR VOMITING; Start 08/29/16 at 15:00 Dextrose/Sodium Chloride 1,000 ml @ 70 mls/hr [id number] IV Last administered on 08/30/16 02:18; Admin Dose 100 MLS/HR; Start 08/29/16 at 15:00 Cefepime HCl (Maxipime 1gm/50 ml (Pmx)) 50 ml @ 100 mls/hr Q12 IVPB Last administered on 08/30/16 08:52; Admin Dose 100 MLS/HR; Start 08/29/16 at 21:00 Acetaminophen (Tylenol Liquid) 650 mg Q6H PRN GTB PAIN LEVEL 1-3 OR FEVER; Start 08/30/16 at 06:00 Digoxin (Digoxin) 0.125 mg DAILY@13 GTB ; Start 08/30/16 at 13:00 Magnesium Hydroxide (Milk Of Mag) 30 ml Q24H PRN GTB CONSTIPATION; Start at 19:30 Lansoprazole (Prevacid) 30 mg DAILY@06 GTB Last administered on 08/30/16 06:50 ; Admin Dose 30 MG; Start 08/30/16 at 07:00 Potassium Chloride (Potassium Chloride Pwd/Soln) 40 meq Q4H GTB ; Start at 09:00; Stop 08/30/16 at 14:00 Atorvastatin Calcium (Lipitor) 40 mg HS GTB ; Start 08/30/16 at 21:00 Procedures Procedures CXR images reviewed: ? right middle lobe infiltrate no edema CT brain reviewed report in [facility] records reviewed per report 07/2016 Echo from [facility] CONCLUSIONS Summary Normal left ventricular size. There is normal wall thickness. Left ventricular cavity dimensions, wall motion and systolic function are normal. Normal right ventricle structure and function. There is moderate left atrial enlargement. The right atrium is mildly enlarged. Normal aortic valve structure and function. Mitral annular calcification is present. There is mild mitral regurgitation. Normal tricuspid valve structure and function. There is mild tricuspid regurgitation. TAPSE 1.9 cm. SUSAN ZEPEDA. Aug 30, 2016 09:08
[2016-08-30 09:11] LABS: AADO2 Arterial 38.7 mmHg (7.0-24.0); Allen Test ACCEPTAB; Arterial Base Excess -3.5 mmol/L (-3.0-3); Arterial COHb 0.3 % (0.0-3.0); Arterial Fraction of Oxyhgb 95.1 % (93.0-99.0); Arterial HCO3 19.2 mmol/L (22.0-26.0); Arterial MetHb 0.3 % (0.0-1.5); Arterial Total Hemglobin 8.7 g/dl (12.0-18.0); MODE ROOM AIR
[2016-08-30 09:40] LABS: MAGNESIUM 2.4 mg/dl (1.7-2.5)
[2016-08-30 09:46] LABS: TROPONIN-I 0.126 ng/ml (0.00-0.12)
[2016-08-30] MEDS ORDERED: VANCOMYCIN IV PER PHARMACY XX SCH (10:00)
--- NOTE | 2016-08-30 10:08 | RADRPT ---
PROCEDURE: US Abdomen Complete. CLINICAL INDICATION: Abnormal liver tests, cholecystectomy TECHNIQUE: Multiple real-time images were acquired of the patient's abdomen and retroperitoneum ut ilizing a high resolution transducer. COMPARISON: None FINDINGS: The liver measures 10.2 cm and demonstrates normal echogenicity. There is no intrahepatic biliary ductal dilatation. The extrahepatic common bile duct measures 14 mm. The main portal vein is patent with proper directional flow. The gallbladder is absent The visualized pancreas is unremarkable. The spleen measures 6.6 cm. The right kidney measures 8.6 cm. The left kidney measures 8.8 cm. There are no renal calculi or hyd ronephrosis bilaterally. There is a 2.3 cm simple cyst in the lower pole of the right kidney. The visualized abdominal aorta and IVC are grossly unremarkable. IMPRESSION: No significantly increased hepatic echogenicity to suggest fatty infiltration or early chronic liver disease. The main portal vein is patent with proper directional flow. Status post cholecystectomy with dilatation of the common bile duct to 14 mm consistent with post ch olecystectomy change. Atrophic kidneys without significantly increased parenchymal echogenicity to suggest medical renal d isease. 2.3 cm simple right renal cyst. RPTAT: EE Physician Heather Date Time Electronically viewed and signed by Physician Heather on 08/30/2016 10:08 /
--- NOTE | 2016-08-30 10:18 | CONS ---
Date/Time of Note Date/Time of Note DATE: 08/30/16 TIME: 09:58 Assessment/Plan Assessment/Plan Chief Complaint/Hosp Course 1) AMS - unclear if this is normal variation or sign of infection WBC was elevated and slight fever possible infectious sources would include urine, lung and liver (less likely) will change antibiotics to vanco/merrem get nasal swab for MRSA check procalcitonin 2) increase in LFT's abd u/s is pending due to CHF? check BNP and lipase in a.m. 3) fever and mild leukocytosis possible RML infiltrate and probable UTI CT chest is pending start continue vanco and start merrem, to cover for HCAP and aspiration and resistant organisms in urein check procalcitonin, check nasal for MRSA 4) possible RML infiltrate, nurse reports no coughing CT chest is pending check BNP vanco and merrem will cover aspiration and HCAP 5) pyuria urine cx has GNR vanco/merrem will cover resistant organisms Problems: Consultation Date/Type/Reason Admit Date/Time Aug 29, 2016 at 12:06 Date of Consultation: Aug 30, 2016 Type of Consultation: ID Hx of Present Illness pt is unable to give a history pt brought in due to being less responsive she has dementia and developed CVA about one month ago with L sided weakness no reports of vomiting, diarrhea nurse reports no coughing Past Medical History HTN, hyperlipidemia, dementia, hypothyroid, primary hyperparathyroid, CHF, a-fib Past Surgical History choley, lumbar laminectomy, pacer, g-tube placement Social History Smoking Status: Never smoker Exam/Review of Systems Vital Signs Vitals Vital Signs Date Time Temp Pulse Resp B/P Pulse Ox O2 Delivery O2 Flow Rate FiO2 08/30/16 08:06 98.8 95 20 117/47 96 08/29/16 13:49 Room Air 08/29/16 09:51 2 Intake and Output 08/29/16 08/29/16 08/30/16 15:00 23:00 07:00 Intake Total 3410 ml 50 ml 1350 ml Balance 3410 ml 50 ml 1350 ml Exam Constitutional: non-verbal, other (nurse states she will open eyes but she did not for me) Head: normocephalic Respiratory: clear to auscultation Cardiovascular: irregular rhythm Gastrointestinal: non-tender, other (g-tube site is ok), soft Extremities: other (no LE swelling) Neurological: other (L side is flaccid, resistance noted on right) Results Result Diagram: 08/30/16 0440 08/30/16 0440 Results 24 hrs Laboratory Tests Test 08/29/16 10:25 08/29/16 11:20 08/29/16 16:55 08/30/16 04:40 Urine Color ORANGE Urine Clarity SLIGHTLY CLOUDY Urine pH 5.0 Urine Specific [place] 1.020 Urine Ketones NEGATIVE Urine Nitrite NEGATIVE Urine Bilirubin 1+ H Urine Ictotest POSITIVE Urine Urobilinogen 1.0 E.U./dL Urine Leukocyte Esterase 2+ H Urine Microscopic RBC NONE SEEN Urine Microscopic WBC >50 Urine Squamous Epithelial Cells FEW Urine Bacteria MODERATE Urine Hemoglobin NEGATIVE Urine Glucose NEGATIVE Urine Total Protein 1+ H Lactic Acid Level 2.7 H 2.9 H White Blood Count 11.6 #H Red Blood Count 2.97 L Hemoglobin 8.7 L Hematocrit 27.1 L Mean Corpuscular Volume 91.2 Mean Corpuscular Hemoglobin 29.3 Mean Corpuscular Hemoglobin Concent 32.1 Red Cell Distribution Width 15.8 H Platelet Count 171 # Mean Platelet Volume 10.2 Neutrophils % 92.8 H Lymphocytes % 3.9 L Monocytes % 2.8 Eosinophils % 0.0 Basophils % 0.1 Nucleated Red Blood Cells % 0.0 Neutrophils # 10.8 H Lymphocytes # 0.5 L Monocytes # 0.3 Eosinophils # 0.0 Basophils # 0.0 Nucleated Red Blood Cells # 0.0 Sodium Level 140 Potassium Level 3.2 L Chloride Level 113 H Carbon Dioxide Level 21 Anion Gap 9 # Blood Urea Nitrogen 40 #H Creatinine 0.82 Glucose Level 118 # Calcium Level 9.2 Phosphorus Level 3.0 Magnesium Level 2.4 Ferritin Pending Total Bilirubin 0.3 Direct Bilirubin 0.00 # Indirect Bilirubin 0.3 Aspartate Amino Transf (AST/SGOT) 73 H Alanine Aminotransferase (ALT/SGPT) 123 H Alkaline Phosphatase 164 H Troponin I 0.126 *H Total Protein 5.6 #L Albumin 2.4 L Globulin 3.20 Albumin/Globulin Ratio 0.75 Thyroid Stimulating Hormone (TSH) 0.149 L Digoxin Level 0.7 L Test 08/30/16 09:00 Blood Gas Specimen Source Blood arterial Arterial Blood Date Drawn 08/30/2016 9:02:29 AM Arterial Blood pH (Temp corrected) 7.482 H Arterial Blood pCO2 (Temp correct) 26.2 L Arterial Blood pO2 (Temp corrected) 79.7 L Arterial Blood HCO3 19.2 L Arterial Blood Base Excess -3.5 L Arterial Blood Oxygen Saturation 95.7 Jered Test ACCEPTAB Arterial Blood Gas Puncture Site Left Radial Arterial Blood Carboxyhemoglobin 0.3 Arterial Blood Methemoglobin 0.3 Blood Gas A-a O2 Differential 38.7 H Oxyhemoglobin Percent 95.1 Total Hemoglobin 8.7 L Blood Gas Temperature 37.0 Blood Gas Modality ROOM AIR FiO2 21.0 Blood Gas Notified Whom JLD Blood Gas Notified Time 08/30/2016 9:11:00 AM Medications Medications Current Medications Ondansetron HCl 4 mg 4 mg Q6H PRN IV NAUSEA AND/OR VOMITING; Start 08/29/16 at 15:00 Dextrose/Sodium Chloride (D5-1/2ns) 1,000 ml @ 70 mls/hr [id number] IV Last administered on 08/30/16 02:18; Admin Dose 100 MLS/HR; Start 08/29/16 at 15:00 Acetaminophen (Tylenol Liquid) 650 mg Q6H PRN GTB PAIN LEVEL 1-3 OR FEVER; Start 08/30/16 at 06:00 Digoxin (Digoxin) 0.125 mg DAILY@13 GTB ; Start 08/30/16 at 13:00 Magnesium Hydroxide (Milk Of Mag) 30 ml Q24H PRN GTB CONSTIPATION; Start at 19:30 Lansoprazole (Prevacid) 30 mg DAILY@06 GTB Last administered on 08/30/16 06:50 ; Admin Dose 30 MG; Start 08/30/16 at 07:00 Potassium Chloride (Potassium Chloride Pwd/Soln) 40 meq Q4H GTB ; Start at 09:00; Stop 08/30/16 at 14:00 Atorvastatin Calcium 40 mg 40 mg HS GTB ; Start 08/30/16 at 21:00 Meropenem (Merrem 1 Gm/100 ml (Pmx)) 100 ml @ 200 mls/hr Q12 IVPB ; Start 08/30 at 10:00; Status UNV BRAN MIRANDA MD Aug 30, 2016 10:10
[2016-08-30] MEDS: POTASSIUM CHLORIDE 20 MEQ POWDER FOR ORAL SOLN GTB SCH ×2 (10:25→12:52)
[2016-08-30 10:38] LABS: IRON < 10 ug/dl (35-150)
[2016-08-30 10:45] LABS: TOTAL IRON BINDING CAPACITY 219 ug/dl (241-421)
[2016-08-30] MEDS: MEROPENEM 1 GM/100 ML (PMX) 100 ML IVPB SCH ×2 (11:09→21:05)
[2016-08-30] MEDS: SOD FERRIC GLUC COMPLX 125 MG in SOD CHLORIDE 0.9% 100 ML IVPB SCH (12:59)
[2016-08-30] MEDS: DIGOXIN 0.125 MG TAB GTB SCH (13:00)
[2016-08-30] MEDS ORDERED: DIGOXIN 0.125 MG TAB PO SCH (13:00)
[2016-08-30] MEDS ORDERED: VANCOMYCIN 1 GM in NS 250 ML IVPB SCH (13:00)
--- NOTE | 2016-08-30 16:34 | RADRPT ---
PROCEDURE: CT CHEST WITHOUT CONTRAST CLINICAL INDICATION: Pneumonia TECHNIQUE: Volumetrically acquired images of the thorax obtained without intravenous contrast were reformatted in the axial, coronal, and sagittal planes. CTDI = 9.0 mGy; DLP = 290 mGy-cm. One or m ore of the following dose reduction technique were used: Automatic exposure control, adjustment of t he mA and/or kV according to patient size, and use of iterative reconstruction technique. COMPARISON: Chest x-ray from 08/29/2016. FINDINGS: LOWER NECK AND CHEST WALL: There is a left chest wall dual lead pacer device. AIRWAYS: The trachea and large airways are normal. Mild bronchial wall thickening is seen. LUNGS: Patchy bronchocentric area of consolidation and ground-glass is seen in the left upper lobe. Dependent atelectasis is seen.. PLEURA: Small right and trace left pleural effusions are seen with associated atelectasis. MEDIASTINUM: No mediastinal mass. LYMPH NODES: No significant axillary, hilar, or mediastinal lymphadenopathy by CT size criteria. CARDIAC: Moderate cardiomegaly No pericardial effusion or thickening. VASCULAR: The main pulmonary measures up to 36 mm. Aortic and coronary atherosclerotic calcificati ons are present. OSSEOUS: No suspicious osseous lesions. Scattered degenerative changes of the thoracic spine is vis ualized. Limited evaluation of the upper abdomen is unremarkable. IMPRESSION: 1. Mild bronchial wall thickening may be sequela of bronchitis, asthma, or other nonspecific airway inflammation. Bronchocentric area of consolidation and ground-glass is seen in the left upper lobe which may represent an evolving area of bronchopneumonia. 2. Small right and trace left pleural effusions are seen with associated atelectasis. Intercurrent process within the atelectatic right lung cannot be excluded. 3. Moderate cardiomegaly with left chest wall dual lead pacer device. Enlargement of the main pulmo nary artery may suggest pulmonary arterial hypertension. 4. Atherosclerosis. RPTAT:PP .Jaquan Duran MD, MD Date Time Electronically viewed and signed by .Jaquan Duran MD, MD on 08/30/2016 16:34 .V/
[2016-08-30] MEDS ORDERED: MAGNESIUM HYDROXIDE 30ML CUP GTB PRN (19:30)
[2016-08-30 20:10] VITALS: BP 120/59; RESP 21
[2016-08-30] MEDS: ATORVASTATIN 40 MG TAB GTB SCH (21:05)
--- NOTE | 2016-08-30 22:13 | RADRPT ---
Vent Rate: 98 bpm RR Interval: 0 msec OR Interval: 0 msec QRS Duration: 82 msec QT Interval: 332 msec QTC Interval: 423 msec P-R-T [place]: 0 - 29 - 0 degrees Demand pacemaker, interpretation is based on intrinsic rhythm Atrial fibrillation with premature ventricular or aberrantly conducted complexes ST amp; T wave abnormality, consider inferior ischemia or digitalis effect ST amp; T wave abnormality, consider anterolateral ischemia or digitalis effect Abnormal ECG Electronically Signed By: Dexter Garcia [id number]
[2016-08-31] MEDS: DEXTROSE 5%-0.45% NACL 1,000 ML IV SCH (02:18)
[2016-08-31] MEDS: LANSOPRAZOLE 30 MG CAP GTB SCH (05:12)
[2016-08-31] MEDS: LEVOTHYROXINE 125 MCG TAB GTB SCH (06:19)
[2016-08-31 06:37] LABS: ADD SCAN DIFF NO
[2016-08-31 06:44] LABS: ABNORMAL IP MESSAGE 1; HEMATOCRIT 26.3 % (37.0-47.0); HEMOGLOBIN 8.4 g/dl (12.0-16.0); MEAN CORPUSCULAR HEMOGLOBIN 29.1 pg (29.0-33.0); MEAN CORPUSCULAR HGB CONC 31.9 g/dl (32.0-37.0); MEAN PLATELET VOLUME 11.3 fl (7.4-10.4); PLATELET COUNT 151 10^3/UL (140-415); RED BLOOD COUNT 2.89 10^6/ul (4.20-5.40); WHITE BLOOD COUNT 9.9 10^3/ul (4.8-10.8)
[2016-08-31 06:55] LABS: ALBUMIN 2.4 g/dl (3.3-4.9); POTASSIUM 3.3 mmol/L (3.5-5.1)
[2016-08-31 06:57] LABS: ALBUMIN/GLOBULIN RATIO 0.7; BILIRUBIN,INDIRECT 0.4 mg/dl (0-1.1); BILIRUBIN,TOTAL 0.4 mg/dl (0.2-1.3); CREATININE 0.72 mg/dl (0.44-1.00); TOTAL PROTEIN 5.8 g/dl (6.1-8.1)
[2016-08-31 06:58] LABS: CALCIUM 9.5 mg/dl (8.4-10.2)
[2016-08-31 07:00] LABS: MAGNESIUM 2.5 mg/dl (1.7-2.5); PHOSPHORUS 2.4 mg/dl (2.5-4.9)
[2016-08-31 07:35] VITALS: BP 128/79; RESP 20
--- NOTE | 2016-08-31 07:43 | CONS ---
Date/Time of Note Date/Time of Note DATE: 08/31/16 TIME: 07:36 Assessment/Plan Assessment/Plan Chief Complaint/Hosp Course 1) AMS - unclear if this is normal variation or sign of infection WBC was elevated and slight fever possible infectious sources would include urine, lung and liver (less likely) will change antibiotics to vanco/merrem get nasal swab for MRSA check procalcitonin 08/31 - about the same, wbc is back to normal 2) increase in LFT's abd u/s is pending due to CHF? check BNP and lipase in a.m. 08/31 - abd u/s was ok and LFT's are improving BNP was elevated 3) fever and mild leukocytosis possible RML infiltrate and probable UTI CT chest is pending start continue vanco and start merrem, to cover for HCAP and aspiration and resistant organisms in urein check procalcitonin, check nasal for MRSA 4) possible pneumonia, nurse reports no coughing CT chest is pending check BNP vanco and merrem will cover aspiration and HCAP. 08/31 - CT chest has MARY ANNE patchy infiltrate, not an area of usual aspiration will continue treatment for possible HCAP if MRSA screen is negative will d/c vanco 5) pyuria, probable UTI urine cx has GNR vanco/merrem will cover resistant organisms 08/31 - e.coli in urine is very sensitive, continue with merrem Problems: Consultation Date/Type/Reason Admit Date/Time Aug 29, 2016 at 12:06 Initial Consult Date 08/30/16 Type of Consultation: ID Referring Provider: CHANG BECERRA MD 24 HR Interval Summary Free Text/Dictation spoke to nurse, she occasionally opens her eyes no V, D tolerating TF Subjective hx not possible: pt non-verbal Exam/Review of Systems Vital Signs Vitals Vital Signs Date Time Temp Pulse Resp B/P Pulse Ox O2 Delivery O2 Flow Rate FiO2 08/30/16 20:10 98.3 84 21 120/59 97 08/30/16 20:00 Nasal Cannula 2.0 Intake and Output 08/30/16 08/30/16 08/31/16 15:00 23:00 07:00 Intake Total 260 ml 1170 ml 1210 ml Balance 260 ml 1170 ml 1210 ml Exam does not open eyes for me, looks comfortable Constitutional: non-verbal Head: normocephalic Eyes: nl sclera Respiratory: clear to auscultation Cardiovascular: regular rate and rhythm Gastrointestinal: non-tender, soft Extremities: other (L arm has a bit more swelling than R arm, IV is in right hand) Results Result Diagram: 08/31/16 0540 08/31/16 0540 Results 24 hrs Laboratory Tests Test 08/30/16 09:00 08/30/16 14:55 08/31/16 05:40 Blood Gas Specimen Source Blood arterial Arterial Blood Date Drawn 08/30/2016 9:02:29 AM Arterial Blood pH (Temp corrected) 7.482 H Arterial Blood pCO2 (Temp correct) 26.2 L Arterial Blood pO2 (Temp corrected) 79.7 L Arterial Blood HCO3 19.2 L Arterial Blood Base Excess -3.5 L Arterial Blood Oxygen Saturation 95.7 Jered Test ACCEPTAB Arterial Blood Gas Puncture Site Left Radial Arterial Blood Carboxyhemoglobin 0.3 Arterial Blood Methemoglobin 0.3 Blood Gas A-a O2 Differential 38.7 H Oxyhemoglobin Percent 95.1 Total Hemoglobin 8.7 L Blood Gas Temperature 37.0 Blood Gas Modality ROOM AIR FiO2 21.0 Blood Gas Notified Whom JLD Blood Gas Notified Time 08/30/2016 9:11:00 AM Stool Occult Blood NEGATIVE White Blood Count 9.9 Red Blood Count 2.89 L Hemoglobin 8.4 L Hematocrit 26.3 L Mean Corpuscular Volume 91.0 Mean Corpuscular Hemoglobin 29.1 Mean Corpuscular Hemoglobin Concent 31.9 L Red Cell Distribution Width 16.0 H Platelet Count 151 Mean Platelet Volume 11.3 H Neutrophils % Eosinophils % Neutrophils # Eosinophils # Sodium Level 142 Potassium Level 3.3 L Chloride Level 112 H Carbon Dioxide Level 20 L Anion Gap 13 Blood Urea Nitrogen 41 H Creatinine 0.72 Glucose Level 139 Calcium Level 9.5 Phosphorus Level 2.4 L Magnesium Level 2.5 Total Bilirubin 0.4 Direct Bilirubin 0.00 Indirect Bilirubin 0.4 Aspartate Amino Transf (AST/SGOT) 58 H Alanine Aminotransferase (ALT/SGPT) 90 H Alkaline Phosphatase 165 H B-Type Natriuretic Peptide 6310 H Total Protein 5.8 L Albumin 2.4 L Globulin 3.40 H Albumin/Globulin Ratio 0.70 Amylase Level 72 Lipase 191 Medications Medications Current Medications Ondansetron HCl 4 mg 4 mg Q6H PRN IV NAUSEA AND/OR VOMITING; Start 08/29/16 at 15:00 Dextrose/Sodium Chloride (D5-1/2ns) 1,000 ml @ 70 mls/hr [id number] IV Last administered on 08/30/16 19:56; Admin Dose 70 MLS/HR; Start 08/29/16 at 15:00 Acetaminophen (Tylenol Liquid) 650 mg Q6H PRN GTB PAIN LEVEL 1-3 OR FEVER; Start 08/30/16 at 06:00 Digoxin (Digoxin) 0.125 mg DAILY@13 GTB Last administered on 08/30/16 13:00; Admin Dose 0.125 MG; Start 08/30/16 at 13:00 Magnesium Hydroxide (Milk Of Mag) 30 ml Q24H PRN GTB CONSTIPATION; Start at 19:30 Lansoprazole (Prevacid) 30 mg DAILY@06 GTB Last administered on 08/31/16 05:12 ; Admin Dose 30 MG; Start 08/30/16 at 07:00 Atorvastatin Calcium 40 mg 40 mg HS GTB Last administered on 08/30/16 21:05; Admin Dose 40 MG; Start 08/30/16 at 21:00 Meropenem 100 ml @ 200 mls/hr Q12 IVPB Last administered on 08/30/16 21:05; Admin Dose 200 MLS/HR; Start 08/30/16 at 10:00 Ferric Sodium Gluconate Complex 125 mg/Sodium Chloride 110 ml @ 110 mls/hr Q24H IVPB Last administered on 08/30/16 12:59; Admin Dose 110 MLS/HR; Start at 13:00; Stop 09/03/16 at 13:59 Vancomycin HCl/ Sodium Chloride (Vancocin/NS) 150 ml @ 75 mls/hr Q24H IVPB ; Start 08/31/16 at 14:00 BRAN MIRANDA MD Aug 31, 2016 07:42
--- NOTE | 2016-08-31 08:24 | PN ---
Date/Time of Note Date/Time of Note DATE: 08/31/16 TIME: 08:17 Assessment/Plan VTE Prophylaxis VTE Prophylaxis Intervention: other Lines/Catheters IV Catheter Type (from Nrs): Peripheral IV Assessment/Plan Assessment/Plan 1. Pneumonia, abx modified, will start brochodilators 2. Mild chf, lasix given' 3. Altered mental status sec to infection, sl better today 4. Hypokalemia, will replete 5. Atrial fibrillation with controlled ventric response, ? small IN Subjective 24 Hr Interval Summary Subjective hx not possible: other Exam/Review of Systems Vital Signs Vitals Vital Signs Date Time Temp Pulse Resp B/P Pulse Ox O2 Delivery O2 Flow Rate FiO2 08/30/16 20:10 98.3 84 21 120/59 97 08/30/16 20:00 Nasal Cannula 2.0 Intake and Output 08/30/16 08/30/16 08/31/16 15:00 23:00 07:00 Intake Total 260 ml 1170 ml 1210 ml Balance 260 ml 1170 ml 1210 ml Exam Neck: No jvd Respiratory: clear to auscultation, diminished breath sounds Cardiovascular: irregular rhythm Gastrointestinal: soft Extremities: edema (trace sacral edema) Neurological: other (does not respond to name or follow commands, her eyes are open) Results Result Diagram: 08/31/16 0540 08/31/16 0540 Results 24 hrs Laboratory Tests Test 08/30/16 09:00 08/30/16 14:55 08/31/16 05:40 Blood Gas Specimen Source Blood arterial Arterial Blood Date Drawn 08/30/2016 9:02:29 AM Arterial Blood pH (Temp corrected) 7.482 H Arterial Blood pCO2 (Temp correct) 26.2 L Arterial Blood pO2 (Temp corrected) 79.7 L Arterial Blood HCO3 19.2 L Arterial Blood Base Excess -3.5 L Arterial Blood Oxygen Saturation 95.7 Jered Test ACCEPTAB Arterial Blood Gas Puncture Site Left Radial Arterial Blood Carboxyhemoglobin 0.3 Arterial Blood Methemoglobin 0.3 Blood Gas A-a O2 Differential 38.7 H Oxyhemoglobin Percent 95.1 Total Hemoglobin 8.7 L Blood Gas Temperature 37.0 Blood Gas Modality ROOM AIR FiO2 21.0 Blood Gas Notified Whom JLD Blood Gas Notified Time 08/30/2016 9:11:00 AM Stool Occult Blood NEGATIVE White Blood Count 9.9 Red Blood Count 2.89 L Hemoglobin 8.4 L Hematocrit 26.3 L Mean Corpuscular Volume 91.0 Mean Corpuscular Hemoglobin 29.1 Mean Corpuscular Hemoglobin Concent 31.9 L Red Cell Distribution Width 16.0 H Platelet Count 151 Mean Platelet Volume 11.3 H Neutrophils % Eosinophils % Neutrophils # Eosinophils # Sodium Level 142 Potassium Level 3.3 L Chloride Level 112 H Carbon Dioxide Level 20 L Anion Gap 13 Blood Urea Nitrogen 41 H Creatinine 0.72 Glucose Level 139 Calcium Level 9.5 Phosphorus Level 2.4 L Magnesium Level 2.5 Total Bilirubin 0.4 Direct Bilirubin 0.00 Indirect Bilirubin 0.4 Aspartate Amino Transf (AST/SGOT) 58 H Alanine Aminotransferase (ALT/SGPT) 90 H Alkaline Phosphatase 165 H B-Type Natriuretic Peptide 6310 H Total Protein 5.8 L Albumin 2.4 L Globulin 3.40 H Albumin/Globulin Ratio 0.70 Amylase Level 72 Lipase 191 Medications Medications Current Medications Ondansetron HCl 4 mg 4 mg Q6H PRN IV NAUSEA AND/OR VOMITING; Start 08/29/16 at 15:00 Dextrose/Sodium Chloride (D5-1/2ns) 1,000 ml @ 70 mls/hr [id number] IV Last administered on 08/30/16 19:56; Admin Dose 70 MLS/HR; Start 08/29/16 at 15:00 Acetaminophen (Tylenol Liquid) 650 mg Q6H PRN GTB PAIN LEVEL 1-3 OR FEVER; Start 08/30/16 at 06:00 Digoxin (Digoxin) 0.125 mg DAILY@13 GTB Last administered on 08/30/16 13:00; Admin Dose 0.125 MG; Start 08/30/16 at 13:00 Magnesium Hydroxide (Milk Of Mag) 30 ml Q24H PRN GTB CONSTIPATION; Start at 19:30 Lansoprazole (Prevacid) 30 mg DAILY@06 GTB Last administered on 08/31/16 05:12 ; Admin Dose 30 MG; Start 08/30/16 at 07:00 Atorvastatin Calcium 40 mg 40 mg HS GTB Last administered on 08/30/16 21:05; Admin Dose 40 MG; Start 08/30/16 at 21:00 Meropenem 100 ml @ 200 mls/hr Q12 IVPB Last administered on 08/30/16 21:05; Admin Dose 200 MLS/HR; Start 08/30/16 at 10:00 Ferric Sodium Gluconate Complex 125 mg/Sodium Chloride 110 ml @ 110 mls/hr Q24H IVPB Last administered on 08/30/16 12:59; Admin Dose 110 MLS/HR; Start at 13:00; Stop 09/03/16 at 13:59 Vancomycin HCl/ Sodium Chloride (Vancocin/NS) 150 ml @ 75 mls/hr Q24H IVPB ; Start 08/31/16 at 14:00 CHANG BECERRA MD Aug 31, 2016 08:24
[2016-08-31] MEDS: IPRATROPIUM (NEB) 0.5 MG/2.5 ML AMP HHN SCH ×3 (08:28→16:40)
[2016-08-31] MEDS: LEVALBUTEROL (NEB) 0.31 MG/3 ML AMP HHN SCH ×3 (08:28→16:40)
[2016-08-31] MEDS ORDERED: FUROSEMIDE 20 MG INJ IV ONE (08:30)
--- NOTE | 2016-08-31 09:08 | CONS ---
Date/Time of Note Date/Time of Note DATE: 08/31/16 TIME: 09:04 Assessment/Plan Assessment/Plan Chief Complaint/Hosp Course Impression: # troponin elevation- likely type ii nstemi. flat change on repeat testing, unlikely to be ACS, does have twi on ekg, but no reported symptoms otherwise and HD stable. recent echo with nl lv systolic function. given comorbidities and recent CVA, would hold off on further testing if clinically stable and cont medical mgmt at this time. # atrial fibrillation- non valvular, elevated chads score, but had previous falls and off anticoag. pt now with recent cva, overall prognosis nursing home is poor, unclear what benefit she would have from anticoag. d/w family, hold off on anticoag. cont rate control # s/p ppm- recent interrogation will obtain report # h/o htn- controlled # AMS- ? related to infection. 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 Becerra/family at bedside , will follow Problems: Consultation Date/Type/Reason Admit Date/Time Aug 29, 2016 at 12:06 Initial Consult Date 08/30/16 Type of Consultation: cardiology Referring Provider: CHANG BECERRA MD 24 HR Interval Summary Free Text/Dictation no acute events. pt more alert this am, still remains non verbal. able to follow commands, squeezes R hand to command. does not move L hand/leg. can not communicate if any cp/sob. looks comfortable Exam/Review of Systems Vital Signs Vitals Vital Signs Date Time Temp Pulse Resp B/P Pulse Ox O2 Delivery O2 Flow Rate FiO2 08/31/16 07:35 98.8 107 20 128/79 96 08/30/16 20:00 Nasal Cannula 2.0 Intake and Output 08/30/16 08/30/16 08/31/16 14:59 22:59 06:59 Intake Total 260 ml 1170 ml 1210 ml Balance 260 ml 1170 ml 1210 ml Exam Constitutional: non-verbal, follows some commands Psych: other (unable to assess ) Head: atraumatic, normocephalic Eyes: nl conjunctiva, nl lids, nl sclera ENMT: mucosa pink and moist Neck: non-tender, supple, No bruits, No jvd Respiratory: clear to auscultation, normal air movement, other (anterior licea ) Cardiovascular: other (irregularly irregular, nl s1s2, ii/vi systolic lLSB), No S3, No S4, No edema Gastrointestinal: non-tender, soft Musculoskeletal: nl extremities to inspection Extremities: normal pulses Neurological: does not move L side to command Results Result Diagram: 08/31/16 0540 08/31/16 0540 Results 24 hrs Laboratory Tests Test 08/30/16 14:55 08/31/16 05:40 Stool Occult Blood NEGATIVE White Blood Count 9.9 Red Blood Count 2.89 L Hemoglobin 8.4 L Hematocrit 26.3 L Mean Corpuscular Volume 91.0 Mean Corpuscular Hemoglobin 29.1 Mean Corpuscular Hemoglobin Concent 31.9 L Red Cell Distribution Width 16.0 H Platelet Count 151 Mean Platelet Volume 11.3 H Neutrophils % Eosinophils % Neutrophils # Eosinophils # Sodium Level 142 Potassium Level 3.3 L Chloride Level 112 H Carbon Dioxide Level 20 L Anion Gap 13 Blood Urea Nitrogen 41 H Creatinine 0.72 Glucose Level 139 Calcium Level 9.5 Phosphorus Level 2.4 L Magnesium Level 2.5 Total Bilirubin 0.4 Direct Bilirubin 0.00 Indirect Bilirubin 0.4 Aspartate Amino Transf (AST/SGOT) 58 H Alanine Aminotransferase (ALT/SGPT) 90 H Alkaline Phosphatase 165 H B-Type Natriuretic Peptide 6310 H Total Protein 5.8 L Albumin 2.4 L Globulin 3.40 H Albumin/Globulin Ratio 0.70 Amylase Level 72 Lipase 191 Medications Medications Current Medications Ondansetron HCl (Zofran Inj) 4 mg Q6H PRN IV NAUSEA AND/OR VOMITING; Start at 15:00 Acetaminophen (Tylenol Liquid) 650 mg Q6H PRN GTB PAIN LEVEL 1-3 OR FEVER; Start 08/30/16 at 06:00 Digoxin (Digoxin) 0.125 mg DAILY@13 GTB Last administered on 08/30/16 13:00; Admin Dose 0.125 MG; Start 08/30/16 at 13:00 Magnesium Hydroxide (Milk Of Mag) 30 ml Q24H PRN GTB CONSTIPATION; Start at 19:30 Lansoprazole (Prevacid) 30 mg DAILY@06 GTB Last administered on 08/31/16 05:12 ; Admin Dose 30 MG; Start 08/30/16 at 07:00 Atorvastatin Calcium 40 mg 40 mg HS GTB Last administered on 08/30/16 21:05; Admin Dose 40 MG; Start 08/30/16 at 21:00 Meropenem 100 ml @ 200 mls/hr Q12 IVPB Last administered on 08/30/16 21:05; Admin Dose 200 MLS/HR; Start 08/30/16 at 10:00 Ferric Sodium Gluconate Complex 125 mg/Sodium Chloride 110 ml @ 110 mls/hr Q24H IVPB Last administered on 08/30/16 12:59; Admin Dose 110 MLS/HR; Start at 13:00; Stop 09/03/16 at 13:59 Vancomycin HCl/ Sodium Chloride (Vancocin/NS) 150 ml @ 75 mls/hr Q24H IVPB ; Start 08/31/16 at 14:00 Potassium Chloride 40 meq 40 meq Q4H JT ; Start 08/31/16 at 09:00; Stop at 14:00 Sodium Phosphate/ Sodium Chloride (Sodium Phosphate/NS) 255 ml @ 63.75 mls/ hr ONCE ONCE IVPB ; Start 08/31/16 at 10:00; Stop 08/31/16 at 13:59 Enoxaparin Sodium (Lovenox) 40 mg DAILY SC ; Start 08/31/16 at 09:[address] report reviewed 1. Mild bronchial wall thickening may be sequela of bronchitis, asthma, or other nonspecific airway inflammation. Bronchocentric area of consolidation and ground-glass is seen in the left upper lobe which may represent an evolving area of bronchopneumonia. 2. Small right and trace left pleural effusions are seen with associated atelectasis. Intercurrent process within the atelectatic right lung cannot be excluded. 3. Moderate cardiomegaly with left chest wall dual lead pacer device. Enlargement of the main pulmonary artery may suggest pulmonary arterial hypertension. 4. Atherosclerosis. SUSAN ZEPEDA Aug 31, 2016 09:08
[2016-08-31] MEDS: MEROPENEM 1 GM/100 ML (PMX) 100 ML IVPB SCH ×2 (09:23→21:00)
[2016-08-31] MEDS: POTASSIUM CHLORIDE 20 MEQ POWDER FOR ORAL SOLN JT SCH ×2 (09:24→13:19)
[2016-08-31] MEDS: ENOXAPARIN 40 MG/0.4 ML SYG SC SCH (09:24)
[2016-08-31] MEDS ORDERED: SODIUM PHOSPHATE 20 MEQ in SOD CHLORIDE 0.9% 250 ML IVPB ONE (10:00)
[2016-08-31] MEDS: METOPROLOL 25 MG TAB GTB SCH ×2 (10:33→21:00)
[2016-08-31 10:57] LABS: LYMPHOCYTES # 0.4 10^3/ul (0.8-2.9); MONOCYTE # 0.4 10^3/ul (0.3-0.9); NEUTROPHIL # 9.1 10^3/ul (1.6-7.5)
[2016-08-31 10:58] LABS: BURR CELLS 1+
[2016-08-31] MEDS: SOD FERRIC GLUC COMPLX 125 MG in SOD CHLORIDE 0.9% 100 ML IVPB SCH (13:18)
[2016-08-31] MEDS: DIGOXIN 0.125 MG TAB GTB SCH (13:19)
[2016-08-31] MEDS ORDERED: VANCOMYCIN 750 MG in SOD CHLORIDE 0.9% 150 ML IVPB SCH (14:00)
[2016-08-31] MEDS: ACETAMINOPHEN 650MG/20.3ML CUP GTB PRN ×2 (15:15→21:02)
[2016-08-31 20:05] VITALS: BP 129/69; RESP 20
[2016-08-31] MEDS: ATORVASTATIN 40 MG TAB GTB SCH (21:00)
[2016-09-01 05:07] LABS: ADD SCAN DIFF NO
[2016-09-01 05:13] LABS: BASOPHILS % 0.2 % (0.0-2.0); EOSINOPHILS # 0.1 10^3/ul (0.0-0.5); EOSINOPHILS % 0.5 % (0.0-7.0); HEMATOCRIT 36.1 % (37.0-47.0); HEMOGLOBIN 11.8 g/dl (12.0-16.0); LYMPHOCYTES # 1.1 10^3/ul (0.8-2.9); LYMPHOCYTES % 10.5 % (15.0-51.0); MEAN CORPUSCULAR HEMOGLOBIN 28.4 pg (29.0-33.0); MEAN CORPUSCULAR HGB CONC 32.7 g/dl (32.0-37.0); MEAN CORPUSCULAR VOLUME 86.8 fl (82.0-101.0); MEAN PLATELET VOLUME 11.1 fl (7.4-10.4); MONOCYTE # 0.1 10^3/ul (0.3-0.9); MONOCYTES % 0.6 % (0.0-11.0); NEUTROPHIL # 9.4 10^3/ul (1.6-7.5); PLATELET COUNT 128 10^3/UL (140-415); RED BLOOD COUNT 4.16 10^6/ul (4.20-5.40); RED CELL DISTRIBUTION WIDTH 15.9 % (11.5-14.5); WHITE BLOOD COUNT 10.8 10^3/ul (4.8-10.8)
[2016-09-01 05:20] LABS: ALBUMIN 2.4 g/dl (3.3-4.9)
[2016-09-01 05:21] LABS: POTASSIUM 4.7 mmol/L (3.5-5.1)
[2016-09-01 05:22] LABS: CREATININE 0.64 mg/dl (0.44-1.00)
[2016-09-01 05:23] LABS: ALBUMIN/GLOBULIN RATIO 0.68; BILIRUBIN,INDIRECT 0.8 mg/dl (0-1.1); BILIRUBIN,TOTAL 0.8 mg/dl (0.2-1.3); CALCIUM 9.8 mg/dl (8.4-10.2); TOTAL PROTEIN 5.9 g/dl (6.1-8.1)
[2016-09-01 05:25] LABS: PHOSPHORUS 3.1 mg/dl (2.5-4.9)
[2016-09-01 05:26] LABS: MAGNESIUM 2.3 mg/dl (1.7-2.5)
[2016-09-01] MEDS: LANSOPRAZOLE 30 MG CAP GTB SCH (06:00)
[2016-09-01] MEDS: LEVOTHYROXINE 125 MCG TAB GTB SCH (06:00)
--- NOTE | 2016-09-01 07:08 | CONS ---
Date/Time of Note Date/Time of Note DATE: 09/01/16 TIME: 07:02 Assessment/Plan Assessment/Plan Chief Complaint/Hosp Course 1) AMS - unclear if this is normal variation or sign of infection WBC was elevated and slight fever possible infectious sources would include urine, lung and liver (less likely) will change antibiotics to vanco/merrem get nasal swab for MRSA check procalcitonin 08/31 - about the same, wbc is back to normal 09/01 - overall improved but not back to baseline according to the daughter will check ammonia level in a.m. 2) increase in LFT's abd u/s is pending due to CHF? check BNP and lipase in a.m. 08/31 - abd u/s was ok and LFT's are improving BNP was elevated 3) fever and mild leukocytosis possible RML infiltrate and probable UTI CT chest is pending start continue vanco and start merrem, to cover for HCAP and aspiration and resistant organisms in urein check procalcitonin, check nasal for MRSA 4) possible pneumonia, nurse reports no coughing CT chest is pending check BNP vanco and merrem will cover aspiration and HCAP. 08/31 - CT chest has MARY ANNE patchy infiltrate, not an area of usual aspiration will continue treatment for possible HCAP if MRSA screen is negative will d/c vanco 09/01 - neg for MRSA, d/c vanco cotinue with merrem 5) pyuria, probable UTI urine cx has GNR vanco/merrem will cover resistant organisms 08/31 - e.coli in urine is very sensitive, continue with merrem 6) decrease in platelets 09/01 - d/c vanco Problems: Consultation Date/Type/Reason Admit Date/Time Aug 29, 2016 at 12:06 Initial Consult Date 08/30/16 Type of Consultation: ID Referring Provider: CHANG BECERRA MD 24 HR Interval Summary Free Text/Dictation spoke to daughter no coughing overnight no reports of V or D pt was more awake yesterday but not back to baseline, no verbally communicating like before Subjective hx not possible: pt non-verbal Exam/Review of Systems Vital Signs Vitals Vital Signs Date Time Temp Pulse Resp B/P Pulse Ox O2 Delivery O2 Flow Rate FiO2 09/01/16 05:47 2.0 09/01/16 00:00 Nasal Cannula 08/31/16 20:05 97.4 101 20 129/69 99 08/31/16 12:53 28 Intake and Output 08/31/16 08/31/16 09/01/16 14:59 22:59 06:59 Intake Total 350 ml 1385 ml 1000 ml Output Total 1200 ml 550 ml Balance 350 ml 185 ml 450 ml Exam does not respond to verbal stimuli Constitutional: non-verbal Head: normocephalic Eyes: nl sclera Respiratory: clear to auscultation Cardiovascular: regular rate and rhythm Gastrointestinal: non-tender, soft Extremities: other (hands are less swollen) Results Result Diagram: 09/01/16 0430 09/01/16 0430 Results 24 hrs Laboratory Tests Test 08/31/16 11:30 09/01/16 04:30 Stool Occult Blood NEGATIVE White Blood Count 10.8 Red Blood Count 4.16 #L Hemoglobin 11.8 #L Hematocrit 36.1 #L Mean Corpuscular Volume 86.8 Mean Corpuscular Hemoglobin 28.4 L Mean Corpuscular Hemoglobin Concent 32.7 Red Cell Distribution Width 15.9 H Platelet Count 128 L Mean Platelet Volume 11.1 H Neutrophils % 87.0 H Lymphocytes % 10.5 L Monocytes % 0.6 Eosinophils % 0.5 Basophils % 0.2 Nucleated Red Blood Cells % 0.0 Neutrophils # 9.4 H Lymphocytes # 1.1 Monocytes # 0.1 L Eosinophils # 0.1 Basophils # 0.0 Nucleated Red Blood Cells # 0.0 Sodium Level 145 H Potassium Level 4.7 Chloride Level 115 H Carbon Dioxide Level 22 Anion Gap 13 Blood Urea Nitrogen 38 H Creatinine 0.64 Glucose Level 125 Calcium Level 9.8 Phosphorus Level 3.1 Magnesium Level 2.3 Total Bilirubin 0.8 Direct Bilirubin 0.00 Indirect Bilirubin 0.8 Aspartate Amino Transf (AST/SGOT) 72 H Alanine Aminotransferase (ALT/SGPT) 88 H Alkaline Phosphatase 193 H Total Protein 5.9 L Albumin 2.4 L Globulin 3.50 H Albumin/Globulin Ratio 0.68 Medications Medications Current Medications Ondansetron HCl (Zofran Inj) 4 mg Q6H PRN IV NAUSEA AND/OR VOMITING; Start at 15:00 Acetaminophen (Tylenol Liquid) 650 mg Q6H PRN GTB PAIN LEVEL 1-3 OR FEVER Last administered on 08/31/16t 21:02; Admin Dose 650 MG; Start 08/30/16 at 06:00 Digoxin (Digoxin) 0.125 mg DAILY@13 GTB Last administered on 08/31/16 13:19; Admin Dose 0.125 MG; Start 08/30/16 at 13:00 Magnesium Hydroxide (Milk Of Mag) 30 ml Q24H PRN GTB CONSTIPATION; Start at 19:30 Lansoprazole (Prevacid) 30 mg DAILY@06 GTB Last administered on 09/01/16 06:00 ; Admin Dose 30 MG; Start 08/30/16 at 07:00 Atorvastatin Calcium 40 mg 40 mg HS GTB Last administered on 08/31/16 21:00; Admin Dose 40 MG; Start 08/30/16 at 21:00 Meropenem 100 ml @ 200 mls/hr Q12 IVPB Last administered on 08/31/16 21:00; Admin Dose 200 MLS/HR; Start 08/30/16 at 10:00 Ferric Sodium Gluconate Complex 125 mg/Sodium Chloride 110 ml @ 110 mls/hr Q24H IVPB Last administered on 08/31/16 13:18; Admin Dose 110 MLS/HR; Start at 13:00; Stop 09/03/16 at 13:59 Vancomycin HCl/ Sodium Chloride (Vancocin/NS) 150 ml @ 75 mls/hr Q24H IVPB ; Start 08/31/16 at 14:00 Enoxaparin Sodium (Lovenox) 40 mg DAILY SC Last administered on 08/31/16 09:24 ; Admin Dose 40 MG; Start 08/31/16 at 09:00 Metoprolol Tartrate (Lopressor) 12.5 mg BID GTB Last administered on 08/31/16 21:00; Admin Dose 12.5 MG; Start 08/31/16 at 09:30 BRAN MIRANDA MD Sep 01, 2016 07:08
[2016-09-01 07:25] VITALS: BP 110/70; RESP 18
[2016-09-01] MEDS: IPRATROPIUM (NEB) 0.5 MG/2.5 ML AMP HHN SCH ×3 (08:26→16:26)
[2016-09-01] MEDS: LEVALBUTEROL (NEB) 0.31 MG/3 ML AMP HHN SCH ×3 (08:26→16:26)
--- NOTE | 2016-09-01 08:58 | PN ---
Date/Time of Note Date/Time of Note DATE: 09/01/16 TIME: 08:55 Assessment/Plan VTE Prophylaxis VTE Prophylaxis Intervention: other Lines/Catheters IV Catheter Type (from Nrs): Peripheral IV Urinary Cath still in place: Yes Reason Cath still needed: urinary retention Assessment/Plan Assessment/Plan 1. Pneumonia, abx per id, cont bronchodilators 2. Chronic atrial fib 3. Impaired cognition, sec to infection, CT brain unremarkable 4. Abnl liver tests persist, sec to ? infection or passive liver congestion sec to chf (lasix ordered) 5. Started conversation with daughter re hospice care. Subjective 24 Hr Interval Summary Subjective hx not possible: other (does not respond to name or to gentle tactile stim) Exam/Review of Systems Vital Signs Vitals Vital Signs Date Time Temp Pulse Resp B/P Pulse Ox O2 Delivery O2 Flow Rate FiO2 09/01/16 08:28 2.0 09/01/16 08:28 96 16 99 Nasal Cannula 08/31/16 20:05 97.4 129/69 08/31/16 12:53 28 Intake and Output 08/31/16 08/31/16 09/01/16 14:59 22:59 06:59 Intake Total 350 ml 1385 ml 1000 ml Output Total 1200 ml 550 ml Balance 350 ml 185 ml 450 ml Exam Neck: No jvd Respiratory: diminished breath sounds, No crackles/rales Cardiovascular: No irregular rhythm Gastrointestinal: soft Extremities: edema (trace sacral edema) Results Result Diagram: 09/01/16 0430 09/01/16 0430 Results 24 hrs Laboratory Tests Test 08/31/16 11:30 09/01/16 04:30 Stool Occult Blood NEGATIVE White Blood Count 10.8 Red Blood Count 4.16 #L Hemoglobin 11.8 #L Hematocrit 36.1 #L Mean Corpuscular Volume 86.8 Mean Corpuscular Hemoglobin 28.4 L Mean Corpuscular Hemoglobin Concent 32.7 Red Cell Distribution Width 15.9 H Platelet Count 128 L Mean Platelet Volume 11.1 H Neutrophils % 87.0 H Lymphocytes % 10.5 L Monocytes % 0.6 Eosinophils % 0.5 Basophils % 0.2 Nucleated Red Blood Cells % 0.0 Neutrophils # 9.4 H Lymphocytes # 1.1 Monocytes # 0.1 L Eosinophils # 0.1 Basophils # 0.0 Nucleated Red Blood Cells # 0.0 Sodium Level 145 H Potassium Level 4.7 Chloride Level 115 H Carbon Dioxide Level 22 Anion Gap 13 Blood Urea Nitrogen 38 H Creatinine 0.64 Glucose Level 125 Calcium Level 9.8 Phosphorus Level 3.1 Magnesium Level 2.3 Total Bilirubin 0.8 Direct Bilirubin 0.00 Indirect Bilirubin 0.8 Aspartate Amino Transf (AST/SGOT) 72 H Alanine Aminotransferase (ALT/SGPT) 88 H Alkaline Phosphatase 193 H Total Protein 5.9 L Albumin 2.4 L Globulin 3.50 H Albumin/Globulin Ratio 0.68 Medications Medications Current Medications Ondansetron HCl (Zofran Inj) 4 mg Q6H PRN IV NAUSEA AND/OR VOMITING; Start at 15:00 Acetaminophen (Tylenol Liquid) 650 mg Q6H PRN GTB PAIN LEVEL 1-3 OR FEVER Last administered on 08/31/16 21:02; Admin Dose 650 MG; Start 08/30/16 at 06:00 Digoxin (Digoxin) 0.125 mg DAILY@13 GTB Last administered on 08/31/16 13:19; Admin Dose 0.125 MG; Start 08/30/16 at 13:00 Magnesium Hydroxide (Milk Of Mag) 30 ml Q24H PRN GTB CONSTIPATION; Start at 19:30 Lansoprazole (Prevacid) 30 mg DAILY@06 GTB Last administered on 09/01/16 06:00 ; Admin Dose 30 MG; Start 08/30/16 at 07:00 Atorvastatin Calcium 40 mg 40 mg HS GTB Last administered on 08/31/16 21:00; Admin Dose 40 MG; Start 08/30/16 at 21:00 Meropenem 100 ml @ 200 mls/hr Q12 IVPB Last administered on 08/31/16 21:00; Admin Dose 200 MLS/HR; Start 08/30/16 at 10:00 Ferric Sodium Gluconate Complex/ Sodium Chloride (Ferrlecit/NS) 110 ml @ 110 mls/hr Q24H IVPB Last administered on 08/31/16 13:18; Admin Dose 110 MLS/HR; Start 08/30/16 at 13:00; Stop 09/03/16 at 13:59 Enoxaparin Sodium (Lovenox) 40 mg DAILY SC Last administered on 08/31/16 09:24 ; Admin Dose 40 MG; Start 08/31/16 at 09:00 Metoprolol Tartrate (Lopressor) 12.5 mg BID GTB Last administered on 08/31/16t 21:00; Admin Dose 12.5 MG; Start 08/31/16 at 09:30 CHANG BECERRA MD Sep 01, 2016 08:58
[2016-09-01] MEDS ORDERED: FUROSEMIDE 40 MG INJ IV ONE (09:00)
[2016-09-01] MEDS: MEROPENEM 1 GM/100 ML (PMX) 100 ML IVPB SCH ×2 (09:01→21:10)
[2016-09-01] MEDS: METOPROLOL 25 MG TAB GTB SCH ×2 (09:01→21:10)
[2016-09-01] MEDS: ENOXAPARIN 40 MG/0.4 ML SYG SC SCH (09:03)
[2016-09-01] MEDS: DEXTROSE 5% 1,000 ML IV SCH (09:22)
[2016-09-01] MEDS: SOD FERRIC GLUC COMPLX 125 MG in SOD CHLORIDE 0.9% 100 ML IVPB SCH (12:59)
[2016-09-01] MEDS: DIGOXIN 0.125 MG TAB GTB SCH (13:00)
--- NOTE | 2016-09-01 14:18 | CONS ---
DATE OF ADMISSION: 08/29/2016 DATE OF CONSULTATION: 09/01/2016 TYPE OF CONSULTATION: Gastroenterology. Thank you for having me see this patient. HISTORY OF PRESENT ILLNESS: As you know, Ms. Rodriguez is an 89-year-old woman whom I am asked to see r egarding abnormal liver tests. History is obtained from discussion with Dr. Benoit and discussion w ith the patient's daughter. Apparently she is admitted to the hospital because of tachycardia, hypo tension and a fever. Unfortunately, the patient is demented and unable to give any useful informati on. Nonetheless, during that hospitalization, the question of pneumonia has been raised. In additi on, the question of having a myocardial infarction or congestive heart failure was raised as well. Nonetheless, in review of records in 2014 she had normal liver tests. In 2012, she was noted to hav e a common bile duct of 2.2 cm on her CAT scan. Of note, in discussion with the patient's daughter in 1997 she had a common bile duct stone, requiring either surgery or endoscopic procedure. Current ly, she had an ultrasound showing a 1.4 cm duct. During the course of her hospitalization, her AST has gone from 150 to 73 to 58 to 72. Her ALT has gone from 186 to 90 to 88. Her alkaline phosphata se has gone from 240 to 164 to 165 to 193. Currently, the patient is unable to give any useful info rmation. PAST MEDICAL HISTORY: ____ hospitalization back surgery and cholecystectomy. ADULT ILLNESSES: Atrial fibrillation, hyperparathyroidism, hypothyroidism, pacemaker, osteoporosis, dementia, cerebrovascular accident, osteoarthritis. CHILDHOOD: Denies rheumatic fever or scarlet fever. INJURIES: NONE KNOWN. MEDICATIONS: Currently include: 1. Metoprolol. 2. Atrovent. 3. Levalbuterol. 4. Lovenox. 5. Synthroid. 6. Lipitor. 7. Milk of magnesia. 8. Digoxin. 9. Meropenem. 10. Prevacid. 11. Zofran. 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 FAMILY HISTORY: Noncontributory. REVIEW OF SYSTEMS: Negative except as noted above. PHYSICAL EXAMINATION: GENERAL: Shows patient is a well-developed, elderly frail woman lying in bed. VITAL SIGNS: Temperature 98.6, pulse 96, respirations 16, blood pressure 110/70. SKIN: Clear. HEENT: Negative. LUNGS: Clear to percussion and auscultation. CARDIAC: No murmurs, rubs or gallops. ABDOMEN: Soft, nontender, G-tube in place. LABORATORY DATA: Current CBC shows white count 10.8, hemoglobin 11, hematocrit 36, platelets 128. IMPRESSION: Clearly the patient has had cholestatic liver function abnormalities that are new. The y seem to be improving somewhat. Certainly, I note that the question of cholestasis from sepsis is a possibility. However, the patient's ammonia has been relatively mild. The question of passive co ngestion has been raised, but again the evidence of congestive heart failure being present is relati vely mild, as well. What I am concerned about is her dilated common bile duct and the fact that she had common bile duct stones in the past. It is certainly possible that her admission, at which jackie mendoza showed fever, hypotension and tachycardia could have been related to cholangitis. PLAN: I have discussed the above in depth with Dr. Benoit. He will speak with Dr. Evans regarding a dditional antibiotic coverage. At this point, we will follow liver tests. On discussion with Dr. Kerrie quiros he feels given the patient's overall status she is frail and not a candidate for ERCP currentl y. We will certainly need to observe her at this point regarding the future direction of liver test s and reconsider an ERCP pending her clinical course. In addition, given her pacemaker she cannot have an MRCP. Thank you for having me see this patient. Dictated By: NIXON DUKES/DYANA Conf#: [id number] DID#: [id number]
[2016-09-01 20:07] VITALS: BP 155/73; RESP 19
[2016-09-01] MEDS: ATORVASTATIN 40 MG TAB GTB SCH (21:10)
[2016-09-02] MEDS: DEXTROSE 5% 1,000 ML IV SCH ×2 (04:53→15:04)
[2016-09-02 05:19] LABS: ADD SCAN DIFF NO
[2016-09-02 05:24] LABS: BASOPHILS % 0.2 % (0.0-2.0); EOSINOPHILS # 0.1 10^3/ul (0.0-0.5); EOSINOPHILS % 0.7 % (0.0-7.0); HEMOGLOBIN 12.1 g/dl (12.0-16.0); LYMPHOCYTES % 7.4 % (15.0-51.0); MEAN CORPUSCULAR HEMOGLOBIN 28.1 pg (29.0-33.0); MEAN CORPUSCULAR HGB CONC 32.7 g/dl (32.0-37.0); MEAN CORPUSCULAR VOLUME 85.8 fl (82.0-101.0); MEAN PLATELET VOLUME 11.6 fl (7.4-10.4); MONOCYTES % 7.4 % (0.0-11.0); NEUTROPHIL # 10.3 10^3/ul (1.6-7.5); NEUTROPHILS % 79.7 % (39.0-77.0); NUCLEATED RED BLOOD CELLS% 0.2 /100WBC (0.0-0.0); PLATELET COUNT 144 10^3/UL (140-415); RED BLOOD COUNT 4.31 10^6/ul (4.20-5.40); RED CELL DISTRIBUTION WIDTH 15.8 % (11.5-14.5); WHITE BLOOD COUNT 12.9 10^3/ul (4.8-10.8)
[2016-09-02 05:35] LABS: ALBUMIN 2.5 g/dl (3.3-4.9); ALBUMIN/GLOBULIN RATIO 0.71; BILIRUBIN,INDIRECT 0.8 mg/dl (0-1.1); BILIRUBIN,TOTAL 0.8 mg/dl (0.2-1.3); CALCIUM 9.3 mg/dl (8.4-10.2); CREATININE 0.53 mg/dl (0.44-1.00); POTASSIUM 3.9 mmol/L (3.5-5.1)
[2016-09-02] MEDS: LANSOPRAZOLE 30 MG CAP GTB SCH (06:06)
[2016-09-02] MEDS: LEVOTHYROXINE 125 MCG TAB GTB SCH (06:06)
--- NOTE | 2016-09-02 07:04 | CONS ---
Date/Time of Note Date/Time of Note DATE: 09/02/16 TIME: 06:59 Assessment/Plan Assessment/Plan Chief Complaint/Hosp Course 1) AMS - unclear if this is normal variation or sign of infection WBC was elevated and slight fever possible infectious sources would include urine, lung and liver (less likely) will change antibiotics to vanco/merrem get nasal swab for MRSA check procalcitonin 08/31 - about the same, wbc is back to normal 09/01 - overall improved but not back to baseline according to the daughter will check ammonia level in a.m. 09/02 - ammonia level is ok still not waking up for me but is spontaneously moving RUE and resisting opening her R eye 2) increase in LFT's abd u/s is pending due to CHF? check BNP and lipase in a.m. 08/31 - abd u/s was ok and LFT's are improving BNP was elevated 09/02 - overall improved but still elevated merrem should cover biliary bacterial organisms as enterococcus is not common for these infections 3) fever and mild leukocytosis possible RML infiltrate and probable UTI CT chest is pending start continue vanco and start merrem, to cover for HCAP and aspiration and resistant organisms in urein check procalcitonin, check nasal for MRSA 4) possible pneumonia, nurse reports no coughing CT chest is pending check BNP vanco and merrem will cover aspiration and HCAP. 08/31 - CT chest has MARY ANNE patchy infiltrate, not an area of usual aspiration will continue treatment for possible HCAP if MRSA screen is negative will d/c vanco 09/01 - neg for MRSA, d/c vanco cotinue with merrem 09/02 - no change, await procalcitonin 5) pyuria, probable UTI urine cx has GNR vanco/merrem will cover resistant organisms 08/31 - e.coli in urine is very sensitive, continue with merrem 6) decrease in platelets 09/01 - d/c vanco 09/02 - improved platelets today Problems: Consultation Date/Type/Reason Admit Date/Time Aug 29, 2016 at 12:06 Initial Consult Date 08/30/16 Type of Consultation: ID Referring Provider: CHANG BECERRA MD 24 HR Interval Summary Free Text/Dictation no new problems pt did spontaneously move RUE Subjective hx not possible: pt non-verbal Exam/Review of Systems Vital Signs Vitals Vital Signs Date Time Temp Pulse Resp B/P Pulse Ox O2 Delivery O2 Flow Rate FiO2 09/02/16 04:39 2.0 09/01/16 20:07 98.2 81 19 155/73 97 09/01/16 16:27 Nasal Cannula 08/31/16 12:53 28 Intake and Output 09/01/16 09/01/16 09/02/16 15:00 23:00 07:00 Intake Total 210 ml 1170 ml Output Total 2000 ml Balance 210 ml -830 ml Exam she resisted opening her eye on R and spontaneously moved for RUE Constitutional: non-verbal Head: normocephalic Eyes: nl sclera ENMT: other (dry tongue) Respiratory: clear to auscultation Cardiovascular: irregular rhythm Gastrointestinal: non-tender, soft Extremities: other (no significant edema) Results Result Diagram: 09/02/16 0435 09/02/16 0435 Results 24 hrs Laboratory Tests Test 09/01/16 14:28 09/02/16 04:35 Vancomycin Level Trough 5.2 L White Blood Count 12.9 H Red Blood Count 4.31 Hemoglobin 12.1 Hematocrit 37.0 Mean Corpuscular Volume 85.8 Mean Corpuscular Hemoglobin 28.1 L Mean Corpuscular Hemoglobin Concent 32.7 Red Cell Distribution Width 15.8 H Platelet Count 144 Mean Platelet Volume 11.6 H Neutrophils % 79.7 H Lymphocytes % 7.4 L Monocytes % 7.4 Eosinophils % 0.7 Basophils % 0.2 Nucleated Red Blood Cells % 0.2 H Neutrophils # 10.3 H Lymphocytes # 1.0 Monocytes # 1.0 H Eosinophils # 0.1 Basophils # 0.0 Nucleated Red Blood Cells # 0.0 Sodium Level 137 Potassium Level 3.9 Chloride Level 106 Carbon Dioxide Level 26 Anion Gap 9 Blood Urea Nitrogen 33 H Creatinine 0.53 Glucose Level 136 Calcium Level 9.3 Total Bilirubin 0.8 Direct Bilirubin 0.00 Indirect Bilirubin 0.8 Aspartate Amino Transf (AST/SGOT) 59 H Alanine Aminotransferase (ALT/SGPT) 84 H Alkaline Phosphatase 215 H Ammonia < 9 L Total Protein 6.0 L Albumin 2.5 L Globulin 3.50 H Albumin/Globulin Ratio 0.71 Medications Medications Current Medications Ondansetron HCl (Zofran Inj) 4 mg Q6H PRN IV NAUSEA AND/OR VOMITING; Start at 15:00 Acetaminophen (Tylenol Liquid) 650 mg Q6H PRN GTB PAIN LEVEL 1-3 OR FEVER Last administered on 08/31/16 21:02; Admin Dose 650 MG; Start 08/30/16 at 06:00 Digoxin (Digoxin) 0.125 mg DAILY@13 GTB Last administered on 09/01/16 13:00; Admin Dose 0.125 MG; Start 08/30/16 at 13:00 Magnesium Hydroxide (Milk Of Mag) 30 ml Q24H PRN GTB CONSTIPATION; Start at 19:30 Lansoprazole (Prevacid) 30 mg DAILY@06 GTB Last administered on 09/02/16 06:06 ; Admin Dose 30 MG; Start 08/30/16 at 07:00 Atorvastatin Calcium 40 mg 40 mg HS GTB Last administered on 09/01/16 21:10; Admin Dose 40 MG; Start 08/30/16 at 21:00 Meropenem 100 ml @ 200 mls/hr Q12 IVPB Last administered on 09/01/16 21:10; Admin Dose 200 MLS/HR; Start 08/30/16 at 10:00 Ferric Sodium Gluconate Complex/ Sodium Chloride (Ferrlecit/NS) 110 ml @ 110 mls/hr Q24H IVPB Last administered on 09/01/16 12:59; Admin Dose 110 MLS/HR; Start 08/30/16 at 13:00; Stop 09/03/16 at 13:59 Enoxaparin Sodium (Lovenox) 40 mg DAILY SC Last administered on 09/01/16 09:03 ; Admin Dose 40 MG; Start 08/31/16 at 09:00 Metoprolol Tartrate 12.5 mg 12.5 mg BID GTB Last administered on 09/01/16 21: 10; Admin Dose 12.5 MG; Start 08/31/16 at 09:30 Dextrose (D5W) 1,000 ml @ 70 mls/hr [id number] IV Last administered on 09/02/16 04:53; Admin Dose 70 MLS/HR; Start 09/01/16 at 09:00 BRAN MIRANDA MD Sep 02, 2016 07:03
[2016-09-02 07:35] VITALS: BP 139/62; RESP 20
--- NOTE | 2016-09-02 08:17 | PN ---
Date/Time of Note Date/Time of Note DATE: 09/02/16 TIME: 08:11 Assessment/Plan VTE Prophylaxis VTE Prophylaxis Intervention: other Lines/Catheters IV Catheter Type (from Nrs): Peripheral IV Urinary Cath still in place: Yes Reason Cath still needed: urinary retention Assessment/Plan Assessment/Plan 1. Pneumonia being treated 2. No change in cognition, will repeat ct brain and ask neuro to see, EEG needed ? 3. CHF resolving 4. Anemia, recevived 2 units packed cells and stool ob is neg 5. Liver tests sl better, GI raised issue of cholangitis, rev with ID, not a candidate for ercp. 6. Will again rev with daughter---need to consider hospice. 7. BP has inc a bit, add diovan and lasix 20. Subjective 24 Hr Interval Summary Subjective hx not possible: pt non-verbal Exam/Review of Systems Vital Signs Vitals Vital Signs Date Time Temp Pulse Resp B/P Pulse Ox O2 Delivery O2 Flow Rate FiO2 09/02/16 04:39 2.0 09/01/16 20:07 98.2 81 19 155/73 97 09/01/16 20:00 Nasal Cannula 08/31/16 12:53 28 Intake and Output 09/01/16 09/01/16 09/02/16 15:00 23:00 07:00 Intake Total 210 ml 1170 ml 1110 ml Output Total 2000 ml 600 ml Balance 210 ml -830 ml 510 ml Exam Neck: No jvd Respiratory: clear to auscultation, diminished breath sounds Cardiovascular: regular rate and rhythm Gastrointestinal: soft Extremities: edema (1+ sacral edema) Neurological: other (no response to verbal or tactile stim) Results Result Diagram: 09/02/16 0435 09/02/16 0435 Results 24 hrs Laboratory Tests Test 09/01/16 14:28 09/02/16 04:35 Vancomycin Level Trough 5.2 L White Blood Count 12.9 H Red Blood Count 4.31 Hemoglobin 12.1 Hematocrit 37.0 Mean Corpuscular Volume 85.8 Mean Corpuscular Hemoglobin 28.1 L Mean Corpuscular Hemoglobin Concent 32.7 Red Cell Distribution Width 15.8 H Platelet Count 144 Mean Platelet Volume 11.6 H Neutrophils % 79.7 H Lymphocytes % 7.4 L Monocytes % 7.4 Eosinophils % 0.7 Basophils % 0.2 Nucleated Red Blood Cells % 0.2 H Neutrophils # 10.3 H Lymphocytes # 1.0 Monocytes # 1.0 H Eosinophils # 0.1 Basophils # 0.0 Nucleated Red Blood Cells # 0.0 Sodium Level 137 Potassium Level 3.9 Chloride Level 106 Carbon Dioxide Level 26 Anion Gap 9 Blood Urea Nitrogen 33 H Creatinine 0.53 Glucose Level 136 Calcium Level 9.3 Total Bilirubin 0.8 Direct Bilirubin 0.00 Indirect Bilirubin 0.8 Aspartate Amino Transf (AST/SGOT) 59 H Alanine Aminotransferase (ALT/SGPT) 84 H Alkaline Phosphatase 215 H Ammonia < 9 L Total Protein 6.0 L Albumin 2.5 L Globulin 3.50 H Albumin/Globulin Ratio 0.71 Medications Medications Current Medications Ondansetron HCl (Zofran Inj) 4 mg Q6H PRN IV NAUSEA AND/OR VOMITING; Start at 15:00 Acetaminophen (Tylenol Liquid) 650 mg Q6H PRN GTB PAIN LEVEL 1-3 OR FEVER Last administered on 08/31/16 21:02; Admin Dose 650 MG; Start 08/30/16 at 06:00 Digoxin (Digoxin) 0.125 mg DAILY@13 GTB Last administered on 09/01/16 13:00; Admin Dose 0.125 MG; Start 08/30/16 at 13:00 Magnesium Hydroxide (Milk Of Mag) 30 ml Q24H PRN GTB CONSTIPATION; Start at 19:30 Lansoprazole (Prevacid) 30 mg DAILY@06 GTB Last administered on 09/02/16 06:06 ; Admin Dose 30 MG; Start 08/30/16 at 07:00 Atorvastatin Calcium 40 mg 40 mg HS GTB Last administered on 09/01/16 21:10; Admin Dose 40 MG; Start 08/30/16 at 21:00 Ferric Sodium Gluconate Complex/ Sodium Chloride (Ferrlecit/NS) 110 ml @ 110 mls/hr Q24H IVPB Last administered on 09/01/16 12:59; Admin Dose 110 MLS/HR; Start 08/30/16 at 13:00; Stop 09/03/16 at 13:59 Enoxaparin Sodium (Lovenox) 40 mg DAILY SC Last administered on 09/01/16 09:03 ; Admin Dose 40 MG; Start 08/31/16 at 09:00 Metoprolol Tartrate 12.5 mg 12.5 mg BID GTB Last administered on 09/01/16 21: 10; Admin Dose 12.5 MG; Start 08/31/16 at 09:30 Dextrose 1,000 ml @ 70 mls/hr [id number] IV Last administered on 09/02/16 04:53 ; Admin Dose 70 MLS/HR; Start 09/01/16 at 09:00 Meropenem (Merrem 1 Gm/100 ml (Pmx)) 100 ml @ 200 mls/hr Q8 IVPB ; Start at 08:00 CHANG BECERRA MD Sep 02, 2016 08:17
[2016-09-02] MEDS ORDERED: POTASSIUM CHLORIDE 20 MEQ POWDER FOR ORAL SOLN GTB ONE (08:30)
--- NOTE | 2016-09-02 08:39 | CONS ---
Date/Time of Note Date/Time of Note DATE: 09/02/16 TIME: 08:29 Consult Date/Type/Reason Admit Date/Time Aug 29, 2016 at 12:06 Initial Consult Date 08/30/16 Type of Consultation: GI Ordering Provider: CHANG BECERRA MD Subjective Unable to speak Daughter at bedside Tolerating tube feeding Objective Vital Signs Date Time Temp Pulse Resp B/P Pulse Ox O2 Delivery O2 Flow Rate FiO2 09/02/16 04:39 2.0 09/01/16 20:07 98.2 81 19 155/73 97 09/01/16 20:00 Nasal Cannula 08/31/16 12:53 28 Chest: clear Cardiac: no m,r,g Abdomen: G tube in place, soft non tender Intake and Output 09/01/16 09/01/16 09/02/16 15:00 23:00 07:00 Intake Total 210 ml 1170 ml 1110 ml Output Total 2000 ml 600 ml Balance 210 ml -830 ml 510 ml Results/Medications Result Diagram: 09/02/16 0435 09/02/16 0435 Results 24 hrs Laboratory Tests Test 09/01/16 14:28 09/02/16 04:35 Vancomycin Level Trough 5.2 L White Blood Count 12.9 H Red Blood Count 4.31 Hemoglobin 12.1 Hematocrit 37.0 Mean Corpuscular Volume 85.8 Mean Corpuscular Hemoglobin 28.1 L Mean Corpuscular Hemoglobin Concent 32.7 Red Cell Distribution Width 15.8 H Platelet Count 144 Mean Platelet Volume 11.6 H Neutrophils % 79.7 H Lymphocytes % 7.4 L Monocytes % 7.4 Eosinophils % 0.7 Basophils % 0.2 Nucleated Red Blood Cells % 0.2 H Neutrophils # 10.3 H Lymphocytes # 1.0 Monocytes # 1.0 H Eosinophils # 0.1 Basophils # 0.0 Nucleated Red Blood Cells # 0.0 Sodium Level 137 Potassium Level 3.9 Chloride Level 106 Carbon Dioxide Level 26 Anion Gap 9 Blood Urea Nitrogen 33 H Creatinine 0.53 Glucose Level 136 Calcium Level 9.3 Total Bilirubin 0.8 Direct Bilirubin 0.00 Indirect Bilirubin 0.8 Aspartate Amino Transf (AST/SGOT) 59 H Alanine Aminotransferase (ALT/SGPT) 84 H Alkaline Phosphatase 215 H Ammonia < 9 L Total Protein 6.0 L Albumin 2.5 L Globulin 3.50 H Albumin/Globulin Ratio 0.71 Medications Current Medications Ondansetron HCl (Zofran Inj) 4 mg Q6H PRN IV NAUSEA AND/OR VOMITING; Start at 15:00 Acetaminophen (Tylenol Liquid) 650 mg Q6H PRN GTB PAIN LEVEL 1-3 OR FEVER Last administered on 08/31/16 21:02; Admin Dose 650 MG; Start 08/30/16 at 06:00 Digoxin (Digoxin) 0.125 mg DAILY@13 GTB Last administered on 09/01/16 13:00; Admin Dose 0.125 MG; Start 08/30/16 at 13:00 Magnesium Hydroxide (Milk Of Mag) 30 ml Q24H PRN GTB CONSTIPATION; Start at 19:30 Lansoprazole (Prevacid) 30 mg DAILY@06 GTB Last administered on 09/02/16 06:06 ; Admin Dose 30 MG; Start 08/30/16 at 07:00 Atorvastatin Calcium 40 mg 40 mg HS GTB Last administered on 09/01/16 21:10; Admin Dose 40 MG; Start 08/30/16 at 21:00 Ferric Sodium Gluconate Complex/ Sodium Chloride (Ferrlecit/NS) 110 ml @ 110 mls/hr Q24H IVPB Last administered on 09/01/16 12:59; Admin Dose 110 MLS/HR; Start 08/30/16 at 13:00; Stop 09/03/16 at 13:59 Enoxaparin Sodium (Lovenox) 40 mg DAILY SC Last administered on 09/01/16 09:03 ; Admin Dose 40 MG; Start 08/31/16 at 09:00 Metoprolol Tartrate 12.5 mg 12.5 mg BID GTB Last administered on 09/01/16 21: 10; Admin Dose 12.5 MG; Start 08/31/16 at 09:30 Dextrose 1,000 ml @ 70 mls/hr [id number] IV Last administered on 09/02/16 04:53 ; Admin Dose 70 MLS/HR; Start 09/01/16 at 09:00 Meropenem (Merrem 1 Gm/100 ml (Pmx)) 100 ml @ 200 mls/hr Q8 IVPB ; Start at 08:00 Aspirin (Aspirin) 81 mg DAILY NGT ; Start 09/02/16 at 09:00 Valsartan (Diovan) 80 mg DAILY GTB ; Start 09/02/16 at 09:00 Furosemide (Lasix) 20 mg DAILY@06 GTB ; Start 09/02/16 at 09:00 Potassium Chloride (Potassium Chloride Pwd/Soln) 20 meq ONCE ONCE GTB ; Start 09/02/16 at 08:30; Stop 09/02/16 at 08:31 Assessment/Plan Chief Complaint/Hosp Course Impression: 1. Abnormal cholestatic liver tests and dilated CBD with history of symptomatic choledocholithiasis in past - ? recurrent choledocholithiasis Plan: 1. Discussed suspected diagnosis with daughter and Dr. Becerra 2. Antibiotic management per Dr. Evans 3. Would consider MRCP, but can not do MRCP in face of pacemaker 4. Given persistent cholestatic LFTs and elevated WBC will need to reconsider ERCP; Will leave decision to Dr. Becerra and family given overall status 5. I will see intermittently at this point. Please call if problems develop in interim Problems: NIXON ÁLVAREZ MD Sep 02, 2016 08:39
[2016-09-02] MEDS: MEROPENEM 1 GM/100 ML (PMX) 100 ML IVPB SCH ×3 (09:34→22:08)
[2016-09-02] MEDS: VALSARTAN 80 MG TAB GTB SCH (09:35)
[2016-09-02] MEDS: ASPIRIN 81 MG TAB NGT SCH (09:35)
[2016-09-02] MEDS: METOPROLOL 25 MG TAB GTB SCH ×2 (09:36→22:06)
[2016-09-02] MEDS: FUROSEMIDE 20 MG TAB GTB SCH (09:41)
[2016-09-02] MEDS: ENOXAPARIN 40 MG/0.4 ML SYG SC SCH (09:41)
[2016-09-02 09:57] LABS: AADO2 Arterial 31.6 mmHg (7.0-24.0); Allen Test ACCEPTAB; Arterial Base Excess 1.5 mmol/L (-3.0-3); Arterial COHb 0.7 % (0.0-3.0); Arterial MetHb 0.3 % (0.0-1.5); Arterial Total Hemglobin 13.3 g/dl (12.0-18.0); MODE ROOM AIR
[2016-09-02] MEDS: LEVALBUTEROL (NEB) 0.31 MG/3 ML AMP HHN SCH ×3 (10:00→17:00)
[2016-09-02] MEDS: IPRATROPIUM (NEB) 0.5 MG/2.5 ML AMP HHN SCH ×3 (10:00→17:00)
--- NOTE | 2016-09-02 11:58 | RADRPT ---
PROCEDURE: CT Brain without. CLINICAL INDICATION: Altered mental status. Dementia. TECHNIQUE: A CT of the brain was performed on multidetector high-resolution CT scanner utilizing a xial sections from the skull base through the vertex without contrast. The scan was reviewed in sof t tissue brain and high frequency resolution bone algorithm windows. Images were reviewed on a high -resolution PACS workstation. One or more the following does reduction techniques were utilized: Aut omated exposure control, adjustment of the mA/ or kV according to patient's size, or use of iterativ e reconstruction technique. The exam CTDI = 43.95 mGy and the DLP = 720.23 mGy-cm. COMPARISON: Brain CT 08/29/2016. FINDINGS: The ventricles and sulci are mildly to moderately prominent indicative of volume loss. There is mild cerebellar volume loss. There is no intracranial hemorrhage, mass effect or midline shift. No abn ormal intra-axial or extra-axial fluid collections are seen. The pollokc/white matter differentiation i s preserved. An area of subacute to chronic infarct is again noted in the right MCA distribution within the right posterior frontal lobe, anterior parietal lobe with gyriform hyperdensities suggestive of laminar n ecrosis. There are mild to moderate scattered foci of hypoattenuation in the white matter, which are nonspeci fic in etiology but likely reflect chronic small vessel ischemic changes. There are mild to moderat e intracranial vascular calcifications consistent with atherosclerosis. The visualized paranasal sin uses are essentially clear. Left parietal scalp swelling is noted without underlying skull fracture. IMPRESSION: 1. 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 Otherw ise no acute intracranial hemorrhage, acute new transcortical infarction or mass effect. 2. Mild to moderate intracranial atherosclerosis and chronic small vessel ischemic changes. 3. Mild to moderate generalized cerebral and cerebellar volume loss. 4. Left parietal scalp swelling is noted without underlying skull fracture. RPTAT: HFN .Maame Matos MD, MD Date Time Electronically viewed and signed by .Maame Matos MD, MD on 09/02/2016 11:57 .N/
--- NOTE | 2016-09-02 12:19 | RADRPT ---
PROCEDURE: CHEST 1VW CLINICAL INDICATION: Shortness of breath TECHNIQUE: Single frontal view of the chest was obtained COMPARISON: 08/29/2016 FINDINGS: Stable left chest wall dual lead pacer device. The cardiac size is mildly enlarged, stable. Aortic vascular calcifications are demonstrated. There is worsening mild pulmonary vascular congestion. Bibasilar atelectasis. The lungs are otherwise clear. No consolidation, effusion, or pneumothorax. Mild degenerative changes of the visualized osseous structures are visualized. IMPRESSION: 1. Worsening mild pulmonary vascular congestion. 2. Atherosclerosis. RPTAT:PP .Jaquan Duran MD, Date Time Electronically viewed and signed by .Jaquan Duran MD, on 09/02/2016 12:18 .V/
[2016-09-02] MEDS: SOD FERRIC GLUC COMPLX 125 MG in SOD CHLORIDE 0.9% 100 ML IVPB SCH (12:25)
[2016-09-02] MEDS: DIGOXIN 0.125 MG TAB GTB SCH (12:26)
--- NOTE | 2016-09-02 14:47 | CONS ---
Date/Time of Note Date/Time of Note DATE: 09/02/16 TIME: 14:38 Assessment/Plan Assessment/Plan Chief Complaint/Hosp Course Stroke and AMS Problems: Additional Assessment/Plan This 89-year-old female was transferred from [facility] due to altered mental status. 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 The patient has been a DNR, DNI, comfort measures. The patient has had dysphagia and has a G-tube in place. The patient also had an elevated white blood count in the emergency room with anemia. Her chemistry did show a very slightly elevated troponin level at 0.24. Chest X Ray showed right middle lobe infiltrate. CT brain showed subacute right MCA infarct. Plan: 1 Continue present management 2 EEG 3 Discussed with patients daughter who is present in the room 4 will follow Consultation Date/Type/Reason Admit Date/Time Aug 29, 2016 at 12:06 Date of Consultation: Sep 02, 2016 Reason for Consultation Stroke and AMS Referring Provider: JENISE GERMAN MD Hx of Present Illness This 89-year-old female was transferred from [facility] due to altered mental status. 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 The patient has been a DNR, DNI, comfort measures. The patient has had dysphagia and has a G-tube in place. The patient also had an elevated white blood count in the emergency room with anemia. Her chemistry did show a very slightly elevated troponin level at 0.24. Chest X Ray showed right middle lobe infiltrate. CT brain showed subacute right MCA infarct. Subjective hx not possible: pt non-verbal Psychological: other (unable to assess ) Past Medical History Medical History: hypothyroid, other (A Fib, Dementia, LGIB, Oeteoarthritis) Past Surgical History Past Surgical Hx: other (Pacemaker) Family History Significant Family History: no pertinent family hx Social History Alcohol Use: none Smoking Status: Never smoker Drug Use: none Exam/Review of Systems Vital Signs Vitals Vital Signs Date Time Temp Pulse Resp B/P Pulse Ox O2 Delivery O2 Flow Rate FiO2 09/02/16 10:03 85 18 98 21 09/02/16 09:00 Nasal Cannula 09/02/16 07:35 98.8 139/62 09/02/16 04:39 2.0 Intake and Output 09/01/16 09/01/16 09/02/16 15:00 23:00 07:00 Intake Total 210 ml 1170 ml 1110 ml Output Total 2000 ml 600 ml Balance 210 ml -830 ml 510 ml Exam Constitutional: non-verbal Head: atraumatic, normocephalic Eyes: EOMI, nl conjunctiva, nl lids ENMT: nl external ears & nose, nl lips & teeth, nl nasal mucosa & septum Neck: non-tender, supple Respiratory: clear to auscultation, normal air movement Cardiovascular: nl pulses, regular rate and rhythm Gastrointestinal: nl liver, spleen, non-tender, soft Extremities: normal pulses (non communicative, right hemiparesis, very limited exam) Neurological: unresponsive Skin: nl turgor Lymph: nl lymph nodes Results Result Diagram: 09/02/16 0435 09/02/16 0435 Results 24 hrs Laboratory Tests Test 09/02/16 04:35 09/02/16 09:00 White Blood Count 12.9 H Red Blood Count 4.31 Hemoglobin 12.1 Hematocrit 37.0 Mean Corpuscular Volume 85.8 Mean Corpuscular Hemoglobin 28.1 L Mean Corpuscular Hemoglobin Concent 32.7 Red Cell Distribution Width 15.8 H Platelet Count 144 Mean Platelet Volume 11.6 H Neutrophils % 79.7 H Lymphocytes % 7.4 L Monocytes % 7.4 Eosinophils % 0.7 Basophils % 0.2 Nucleated Red Blood Cells % 0.2 H Neutrophils # 10.3 H Lymphocytes # 1.0 Monocytes # 1.0 H Eosinophils # 0.1 Basophils # 0.0 Nucleated Red Blood Cells # 0.0 Sodium Level 137 Potassium Level 3.9 Chloride Level 106 Carbon Dioxide Level 26 Anion Gap 9 Blood Urea Nitrogen 33 H Creatinine 0.53 Glucose Level 136 Calcium Level 9.3 Total Bilirubin 0.8 Direct Bilirubin 0.00 Indirect Bilirubin 0.8 Aspartate Amino Transf (AST/SGOT) 59 H Alanine Aminotransferase (ALT/SGPT) 84 H Alkaline Phosphatase 215 H Ammonia < 9 L Total Protein 6.0 L Albumin 2.5 L Globulin 3.50 H Albumin/Globulin Ratio 0.71 Blood Gas Specimen Source Blood arterial Arterial Blood Date Drawn 09/02/2016 9:40:54 AM Arterial Blood pH (Temp corrected) 7.499 H Arterial Blood pCO2 (Temp correct) 31.6 L Arterial Blood pO2 (Temp corrected) 80.3 Arterial Blood HCO3 24.0 Arterial Blood Base Excess 1.5 Arterial Blood Oxygen Saturation 96.0 Jered Test ACCEPTAB Arterial Blood Gas Puncture Site Left Radial Arterial Blood Carboxyhemoglobin 0.7 Arterial Blood Methemoglobin 0.3 Blood Gas A-a O2 Differential 31.6 H Oxyhemoglobin Percent 95.0 Total Hemoglobin 13.3 Blood Gas Temperature 37.0 Blood Gas Modality ROOM AIR FiO2 21.0 Blood Gas Notified Whom JLD Blood Gas Notified Time 09/02/2016 9:57:27 AM Medications Medications Current Medications Ondansetron HCl (Zofran Inj) 4 mg Q6H PRN IV NAUSEA AND/OR VOMITING; Start at 15:00 Acetaminophen (Tylenol Liquid) 650 mg Q6H PRN GTB PAIN LEVEL 1-3 OR FEVER Last administered on 08/31/16 21:02; Admin Dose 650 MG; Start 08/30/16 at 06:00 Digoxin (Digoxin) 0.125 mg DAILY@13 GTB Last administered on 09/02/16 12:26; Admin Dose 0.125 MG; Start 08/30/16 at 13:00 Magnesium Hydroxide (Milk Of Mag) 30 ml Q24H PRN GTB CONSTIPATION; Start at 19:30 Lansoprazole (Prevacid) 30 mg DAILY@06 GTB Last administered on 09/02/16 06:06 ; Admin Dose 30 MG; Start 08/30/16 at 07:00 Atorvastatin Calcium 40 mg 40 mg HS GTB Last administered on 09/01/16 21:10; Admin Dose 40 MG; Start 08/30/16 at 21:00 Ferric Sodium Gluconate Complex/ Sodium Chloride (Ferrlecit/NS) 110 ml @ 110 mls/hr Q24H IVPB Last administered on 09/02/16 12:25; Admin Dose 110 MLS/HR; Start 08/30/16 at 13:00; Stop 09/03/16 at 13:59 Enoxaparin Sodium (Lovenox) 40 mg DAILY SC Last administered on 09/02/16 09:41 ; Admin Dose 40 MG; Start 08/31/16 at 09:00 Metoprolol Tartrate 12.5 mg 12.5 mg BID GTB Last administered on 09/02/16 09: 36; Admin Dose 12.5 MG; Start 08/31/16 at 09:30 Dextrose 1,000 ml @ 70 mls/hr [id number] IV Last administered on 09/02/16 04:53 ; Admin Dose 70 MLS/HR; Start 09/01/16 at 09:00 Meropenem (Merrem 1 Gm/100 ml (Pmx)) 100 ml @ 200 mls/hr Q8 IVPB Last administered on 09/02/16 09:34; Admin Dose 200 MLS/HR; Start 09/02/16 at 08:00 Aspirin (Aspirin) 81 mg DAILY NGT Last administered on 09/02/16 09:35; Admin Dose 81 MG; Start 09/02/16 at 09:00 Valsartan (Diovan) 80 mg DAILY GTB Last administered on 09/02/16 09:35; Admin Dose 80 MG; Start 09/02/16 at 09:00 Furosemide (Lasix) 20 mg DAILY@06 GTB Last administered on 09/02/16 09:41; Admin Dose 20 MG; Start 09/02/16 at 09:00 NII KERN MD Sep 02, 2016 14:47
[2016-09-02 20:00] VITALS: BP 125/70; RESP 19
[2016-09-02] MEDS: ATORVASTATIN 40 MG TAB GTB SCH (22:03)
[2016-09-03] MEDS: DEXTROSE 5% 1,000 ML IV SCH ×3 (03:36→21:31)
[2016-09-03 05:57] LABS: ADD SCAN DIFF NO
[2016-09-03 06:00] VITALS: BP 146/88; PULSE 108
[2016-09-03 06:11] LABS: ABNORMAL IP MESSAGE 1; BASOPHILS % 0.3 % (0.0-2.0); EOSINOPHILS # 0.1 10^3/ul (0.0-0.5); EOSINOPHILS % 0.8 % (0.0-7.0); HEMATOCRIT 34.9 % (37.0-47.0); HEMOGLOBIN 11.7 g/dl (12.0-16.0); LYMPHOCYTES # 1.3 10^3/ul (0.8-2.9); LYMPHOCYTES % 9.8 % (15.0-51.0); MEAN CORPUSCULAR HEMOGLOBIN 28.5 pg (29.0-33.0); MEAN CORPUSCULAR HGB CONC 33.5 g/dl (32.0-37.0); MEAN CORPUSCULAR VOLUME 85.1 fl (82.0-101.0); MEAN PLATELET VOLUME 10.7 fl (7.4-10.4); MONOCYTE # 0.9 10^3/ul (0.3-0.9); MONOCYTES % 6.9 % (0.0-11.0); NEUTROPHIL # 9.9 10^3/ul (1.6-7.5); NEUTROPHILS % 75.4 % (39.0-77.0); NUCLEATED RED BLOOD CELLS% 0.2 /100WBC (0.0-0.0); PLATELET COUNT 178 10^3/UL (140-415); RED CELL DISTRIBUTION WIDTH 15.2 % (11.5-14.5); WHITE BLOOD COUNT 13.2 10^3/ul (4.8-10.8)
[2016-09-03] MEDS: FUROSEMIDE 20 MG TAB GTB SCH (06:13)
[2016-09-03] MEDS: LANSOPRAZOLE 30 MG CAP GTB SCH (06:13)
[2016-09-03] MEDS: MEROPENEM 1 GM/100 ML (PMX) 100 ML IVPB SCH ×3 (06:14→21:20)
[2016-09-03] MEDS: LEVOTHYROXINE 125 MCG TAB GTB SCH (06:17)
[2016-09-03 06:44] LABS: ALBUMIN 2.4 g/dl (3.3-4.9); ALBUMIN/GLOBULIN RATIO 0.68; BILIRUBIN,INDIRECT 0.7 mg/dl (0-1.1); BILIRUBIN,TOTAL 0.7 mg/dl (0.2-1.3); CALCIUM 9.2 mg/dl (8.4-10.2); CREATININE 0.58 mg/dl (0.44-1.00); TOTAL PROTEIN 5.9 g/dl (6.1-8.1)
--- NOTE | 2016-09-03 07:35 | CONS ---
Date/Time of Note Date/Time of Note DATE: 09/03/16 TIME: : Assessment/Plan Assessment/Plan Chief Complaint/Hosp Course 1) AMS - unclear if this is normal variation or sign of infection WBC was elevated and slight fever possible infectious sources would include urine, lung and liver (less likely) will change antibiotics to vanco/merrem get nasal swab for MRSA check procalcitonin 08/31 - about the same, wbc is back to normal 09/01 - overall improved but not back to baseline according to the daughter will check ammonia level in a.m. 09/02 - ammonia level is ok still not waking up for me but is spontaneously moving RUE and resisting opening her R eye 09/03 - repeat head CT did not show any acute changes daughter reports that pt is more active when up in a chair or has her own clothes on at home 2) increase in LFT's abd u/s is pending due to CHF? check BNP and lipase in a.m. 08/31 - abd u/s was ok and LFT's are improving BNP was elevated 09/02 - overall improved but still elevated merrem should cover biliary bacterial organisms as enterococcus is not common for these infections 09/03 - no change 3) fever and mild leukocytosis possible RML infiltrate and probable UTI CT chest is pending start continue vanco and start merrem, to cover for HCAP and aspiration and resistant organisms in urein check procalcitonin, check nasal for MRSA 4) possible pneumonia, nurse reports no coughing CT chest is pending check BNP vanco and merrem will cover aspiration and HCAP. 08/31 - CT chest has MARY ANNE patchy infiltrate, not an area of usual aspiration will continue treatment for possible HCAP if MRSA screen is negative will d/c vanco 09/01 - neg for MRSA, d/c vanco continue with merrem 09/02 - no change, await procalcitonin 09/03 - WBC still mildly elevated will add doxycycline to cover atypicals and MRSA 5) pyuria, probable UTI urine cx has GNR vanco/merrem will cover resistant organisms 08/31 - e.coli in urine is very sensitive, continue with merrem 6) decrease in platelets 09/01 - d/c vanco 09/02 - improved platelets today 09/03 - resolved Problems: Consultation Date/Type/Reason Admit Date/Time Aug 29, 2016 at 12:06 Initial Consult Date 08/30/16 Type of Consultation: ID Referring Provider: JENISE GREMAN MD 24 HR Interval Summary Free Text/Dictation spoke to daughter pt opened eyes yesterday but did not seem to recognize the daughter no V, and tolerating TF no coughing Exam/Review of Systems Vital Signs Vitals Vital Signs Date Time Temp Pulse Resp B/P Pulse Ox O2 Delivery O2 Flow Rate FiO2 09/03/16 06:00 108 146/88 09/02/16 20:00 99.2 19 97 09/02/16 20:00 Nasal Cannula 09/02/16 18:02 2.0 09/02/16 10:03 21 Intake and Output 09/02/16 09/02/16 09/03/16 15:00 23:00 07:00 Intake Total 210 ml 1330 ml 700 ml Output Total 702 ml Balance 210 ml 628 ml 700 ml Exam Constitutional: other (does not respond) Head: normocephalic Eyes: nl sclera ENMT: mucosa pink and moist Respiratory: clear to auscultation Cardiovascular: irregular rhythm Gastrointestinal: non-tender, soft Results Result Diagram: 09/03/16 0535 09/03/16 0535 Results 24 hrs Laboratory Tests Test 09/02/16 09:00 09/03/16 05:35 Blood Gas Specimen Source Blood arterial Arterial Blood Date Drawn 09/02/2016 9:40:54 AM Arterial Blood pH (Temp corrected) 7.499 H Arterial Blood pCO2 (Temp correct) 31.6 L Arterial Blood pO2 (Temp corrected) 80.3 Arterial Blood HCO3 24.0 Arterial Blood Base Excess 1.5 Arterial Blood Oxygen Saturation 96.0 Jered Test ACCEPTAB Arterial Blood Gas Puncture Site Left Radial Arterial Blood Carboxyhemoglobin 0.7 Arterial Blood Methemoglobin 0.3 Blood Gas A-a O2 Differential 31.6 H Oxyhemoglobin Percent 95.0 Total Hemoglobin 13.3 Blood Gas Temperature 37.0 Blood Gas Modality ROOM AIR FiO2 21.0 Blood Gas Notified Whom JLD Blood Gas Notified Time 09/02/2016 9:57:27 AM White Blood Count 13.2 H Red Blood Count 4.10 L Hemoglobin 11.7 L Hematocrit 34.9 L Mean Corpuscular Volume 85.1 Mean Corpuscular Hemoglobin 28.5 L Mean Corpuscular Hemoglobin Concent 33.5 Red Cell Distribution Width 15.2 H Platelet Count 178 # Mean Platelet Volume 10.7 H Neutrophils % 75.4 Lymphocytes % 9.8 L Monocytes % 6.9 Eosinophils % 0.8 Basophils % 0.3 Nucleated Red Blood Cells % 0.2 H Neutrophils # 9.9 H Lymphocytes # 1.3 Monocytes # 0.9 Eosinophils # 0.1 Basophils # 0.0 Nucleated Red Blood Cells # 0.0 Sodium Level 131 L Potassium Level 4.0 Chloride Level 101 Carbon Dioxide Level 25 Anion Gap 9 Blood Urea Nitrogen 27 H Creatinine 0.58 Glucose Level 144 Calcium Level 9.2 Total Bilirubin 0.7 Direct Bilirubin 0.00 Indirect Bilirubin 0.7 Aspartate Amino Transf (AST/SGOT) 64 H Alanine Aminotransferase (ALT/SGPT) 78 H Alkaline Phosphatase 214 H Total Protein 5.9 L Albumin 2.4 L Globulin 3.50 H Albumin/Globulin Ratio 0.68 Medications Medications Current Medications Ondansetron HCl (Zofran Inj) 4 mg Q6H PRN IV NAUSEA AND/OR VOMITING; Start at 15:00 Acetaminophen (Tylenol Liquid) 650 mg Q6H PRN GTB PAIN LEVEL 1-3 OR FEVER Last administered on 08/31/16 21:02; Admin Dose 650 MG; Start 08/30/16 at 06:00 Digoxin (Digoxin) 0.125 mg DAILY@13 GTB Last administered on 09/02/16 12:26; Admin Dose 0.125 MG; Start 08/30/16 at 13:00 Magnesium Hydroxide (Milk Of Mag) 30 ml Q24H PRN GTB CONSTIPATION; Start at 19:30 Lansoprazole (Prevacid) 30 mg DAILY@06 GTB Last administered on 09/03/16 06:13 ; Admin Dose 30 MG; Start 08/30/16 at 07:00 Atorvastatin Calcium 40 mg 40 mg HS GTB Last administered on 09/02/16 22:03; Admin Dose 40 MG; Start 08/30/16 at 21:00 Ferric Sodium Gluconate Complex/ Sodium Chloride (Ferrlecit/NS) 110 ml @ 110 mls/hr Q24H IVPB Last administered on 09/02/16 12:25; Admin Dose 110 MLS/HR; Start 08/30/16 at 13:00; Stop 09/03/16 at 13:59 Enoxaparin Sodium (Lovenox) 40 mg DAILY SC Last administered on 09/02/16 09:41 ; Admin Dose 40 MG; Start 08/31/16 at 09:00 Metoprolol Tartrate 12.5 mg 12.5 mg BID GTB Last administered on 09/02/16 22: 06; Admin Dose 12.5 MG; Start 08/31/16 at 09:30 Dextrose 1,000 ml @ 70 mls/hr [id number] IV Last administered on 09/03/16 03:36 ; Admin Dose 70 MLS/HR; Start 09/01/16 at 09:00 Meropenem (Merrem 1 Gm/100 ml (Pmx)) 100 ml @ 200 mls/hr Q8 IVPB Last administered on 09/03/16 06:14; Admin Dose 200 MLS/HR; Start 09/02/16 at 08:00 Aspirin (Aspirin) 81 mg DAILY NGT Last administered on 09/02/16 09:35; Admin Dose 81 MG; Start 09/02/16 at 09:00 Valsartan (Diovan) 80 mg DAILY GTB Last administered on 09/02/16 09:35; Admin Dose 80 MG; Start 09/02/16 at 09:00 Furosemide (Lasix) 20 mg DAILY@06 GTB Last administered on 09/03/16 06:13; Admin Dose 20 MG; Start 09/02/16 at 09:00 BRAN MIRANDA MD Sep 03, 2016 07:35
[2016-09-03 07:52] VITALS: BP 121/58; RESP 24
[2016-09-03] MEDS: IPRATROPIUM (NEB) 0.5 MG/2.5 ML AMP HHN SCH ×3 (08:39→16:37)
[2016-09-03] MEDS: LEVALBUTEROL (NEB) 0.31 MG/3 ML AMP HHN SCH ×3 (08:40→16:37)
[2016-09-03] MEDS: ASPIRIN 81 MG TAB NGT SCH (09:29)
[2016-09-03] MEDS: VALSARTAN 80 MG TAB GTB SCH (09:29)
[2016-09-03] MEDS: DOXYCYCLINE 100 MG TAB PEG SCH ×2 (09:29→21:20)
[2016-09-03] MEDS: METOPROLOL 25 MG TAB GTB SCH ×2 (09:29→21:00)
[2016-09-03] MEDS: ENOXAPARIN 40 MG/0.4 ML SYG SC SCH (09:33)
--- NOTE | 2016-09-03 12:00 | PN ---
Date/Time of Note Date/Time of Note DATE: 09/03/16 TIME: 11:56 Assessment/Plan VTE Prophylaxis VTE Prophylaxis Intervention: LMWH Lines/Catheters IV Catheter Type (from [facility]): Peripheral IV Urinary Cath still in place: No Assessment/Plan Assessment/Plan 1. Pneumonia - on meropenem and doxy added today due to increased WBC 2. CT Brain with no acute findings. EEG completed per Neuro, await results 3. CHF resolving 4. Anemia, received 2 units packed cells and stool ob is neg 5. Liver tests sl better, GI raised issue of cholangitis, rev with ID, not a candidate for ercp. 6. HTN - cont diovan and lasix 7. Goals of care - daughter still contemplating hospice. Family arriving today to see the patient and discuss. Subjective 24 Hr Interval Summary Free Text/Dictation Daughter at bedside, many questions. Family coming into town today to discuss goals of care. patient somnolent and lethargic. Exam/Review of Systems Vital Signs Vitals Vital Signs Date Time Temp Pulse Resp B/P Pulse Ox O2 Delivery O2 Flow Rate FiO2 09/03/16 09:45 99.1 09/03/16 08:40 21 09/03/16 08:40 79 18 94 09/03/16 07:52 121/58 09/02/16 20:00 Nasal Cannula 09/02/16 18:02 2.0 Intake and Output 09/02/16 09/02/16 09/03/16 15:00 23:00 07:00 Intake Total 210 ml 1430 ml 1310 ml Output Total 702 ml Balance 210 ml 728 ml 1310 ml Exam nonverbal, lethargic. Does not open eyes or follow commands. Respiratory: clear to auscultation, normal air movement Cardiovascular: nl pulses, regular rate and rhythm Gastrointestinal: other (g tube site c/d/i), soft Results Result Diagram: 09/03/16 0535 09/03/16 0535 Results 24 hrs Laboratory Tests Test 09/03/16 05:35 White Blood Count 13.2 H Red Blood Count 4.10 L Hemoglobin 11.7 L Hematocrit 34.9 L Mean Corpuscular Volume 85.1 Mean Corpuscular Hemoglobin 28.5 L Mean Corpuscular Hemoglobin Concent 33.5 Red Cell Distribution Width 15.2 H Platelet Count 178 # Mean Platelet Volume 10.7 H Neutrophils % 75.4 Lymphocytes % 9.8 L Monocytes % 6.9 Eosinophils % 0.8 Basophils % 0.3 Nucleated Red Blood Cells % 0.2 H Neutrophils # 9.9 H Lymphocytes # 1.3 Monocytes # 0.9 Eosinophils # 0.1 Basophils # 0.0 Nucleated Red Blood Cells # 0.0 Sodium Level 131 L Potassium Level 4.0 Chloride Level 101 Carbon Dioxide Level 25 Anion Gap 9 Blood Urea Nitrogen 27 H Creatinine 0.58 Glucose Level 144 Calcium Level 9.2 Total Bilirubin 0.7 Direct Bilirubin 0.00 Indirect Bilirubin 0.7 Aspartate Amino Transf (AST/SGOT) 64 H Alanine Aminotransferase (ALT/SGPT) 78 H Alkaline Phosphatase 214 H Total Protein 5.9 L Albumin 2.4 L Globulin 3.50 H Albumin/Globulin Ratio 0.68 Medications Medications Current Medications Ondansetron HCl (Zofran Inj) 4 mg Q6H PRN IV NAUSEA AND/OR VOMITING; Start at 15:00 Acetaminophen (Tylenol Liquid) 650 mg Q6H PRN GTB PAIN LEVEL 1-3 OR FEVER Last administered on 08/31/16 21:02; Admin Dose 650 MG; Start 08/30/16 at 06:00 Digoxin (Digoxin) 0.125 mg DAILY@13 GTB Last administered on 09/02/16 12:26; Admin Dose 0.125 MG; Start 08/30/16 at 13:00 Magnesium Hydroxide (Milk Of Mag) 30 ml Q24H PRN GTB CONSTIPATION; Start at 19:30 Lansoprazole (Prevacid) 30 mg DAILY@06 GTB Last administered on 09/03/16 06:13 ; Admin Dose 30 MG; Start 08/30/16 at 07:00 Atorvastatin Calcium 40 mg 40 mg HS GTB Last administered on 09/02/16 22:03; Admin Dose 40 MG; Start 08/30/16 at 21:00 Ferric Sodium Gluconate Complex/ Sodium Chloride (Ferrlecit/NS) 110 ml @ 110 mls/hr Q24H IVPB Last administered on 09/02/16 12:25; Admin Dose 110 MLS/HR; Start 08/30/16 at 13:00; Stop 09/03/16 at 13:59 Enoxaparin Sodium (Lovenox) 40 mg DAILY SC Last administered on 09/03/16 09:33 ; Admin Dose 40 MG; Start 08/31/16 at 09:00 Metoprolol Tartrate 12.5 mg 12.5 mg BID GTB Last administered on 09/03/16 09: 29; Admin Dose 12.5 MG; Start 08/31/16 at 09:30 Dextrose 1,000 ml @ 70 mls/hr [id number] IV Last administered on 09/03/16 03:36 ; Admin Dose 70 MLS/HR; Start 09/01/16 at 09:00 Meropenem (Merrem 1 Gm/100 ml (Pmx)) 100 ml @ 200 mls/hr Q8 IVPB Last administered on 09/03/16 06:14; Admin Dose 200 MLS/HR; Start 09/02/16 at 08:00 Aspirin (Aspirin) 81 mg DAILY NGT Last administered on 09/03/16 09:29; Admin Dose 81 MG; Start 09/02/16 at 09:00 Valsartan (Diovan) 80 mg DAILY GTB Last administered on 09/03/16 09:29; Admin Dose 80 MG; Start 09/02/16 at 09:00 Furosemide (Lasix) 20 mg DAILY@06 GTB Last administered on 09/03/16 06:13; Admin Dose 20 MG; Start 09/02/16 at 09:00 Doxycycline Hyclate (Vibramycin) 100 mg BID PEG Last administered on 09/03/16 09:29; Admin Dose 100 MG; Start 09/03/16 at 09:00 RYAN HERNANDEZ MD Sep 03, 2016 11:59
[2016-09-03] MEDS: SOD FERRIC GLUC COMPLX 125 MG in SOD CHLORIDE 0.9% 100 ML IVPB SCH (12:17)
[2016-09-03] MEDS: DIGOXIN 0.125 MG TAB GTB SCH (12:18)
--- NOTE | 2016-09-03 15:25 | CONS ---
Date/Time of Note Date/Time of Note DATE: 09/03/16 TIME: 15:21 Assessment/Plan Assessment/Plan Chief Complaint/Hosp Course Stroke and AMS Problems: Additional Assessment/Plan This 89-year-old female was transferred from [facility] due to altered mental status. 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 The patient has been a DNR, DNI, comfort measures. The patient has had dysphagia and has a G-tube in place. The patient also had an elevated white blood count in the emergency room with anemia. Her chemistry did show a very slightly elevated troponin level at 0.24. Chest X Ray showed right middle lobe infiltrate. CT brain showed subacute right MCA infarct. EEG showed bihemispheric generalized background slowing without any epileptiform activity consistent with encephalopathy. Plan: 1 Continue present management 2 Discussed with patients daughter who is present in the room 3 will follow prn Consultation Date/Type/Reason Admit Date/Time Aug 29, 2016 at 12:06 Initial Consult Date 09/02/16 Type of Consultation: ID Reason for Consultation Stroke and altered mental status Referring Provider: JENISE GERMAN MD 24 HR Interval Summary Free Text/Dictation Clinically unchanged. EEG showed encephalopathy. Exam/Review of Systems Vital Signs Vitals Vital Signs Date Time Temp Pulse Resp B/P Pulse Ox O2 Delivery O2 Flow Rate FiO2 09/03/16 12:45 74 18 96 21 09/03/16 09:45 99.1 09/03/16 09:00 Nasal Cannula 09/03/16 07:52 121/58 09/02/16 18:02 2.0 Intake and Output 09/02/16 09/02/16 09/03/16 15:00 23:00 07:00 Intake Total 210 ml 1430 ml 1310 ml Output Total 702 ml Balance 210 ml 728 ml 1310 ml Exam Constitutional: non-verbal Head: atraumatic, normocephalic Eyes: EOMI, nl conjunctiva, nl lids, nl sclera ENMT: mucosa pink and moist, nl external ears & nose, nl lips & teeth, nl nasal mucosa & septum Neck: non-tender, supple Respiratory: clear to auscultation, normal air movement Cardiovascular: nl pulses, regular rate and rhythm Gastrointestinal: soft Extremities: normal pulses Neurological: other (noncommunicative, does not follow any commands, left hemiparetic, very limited exam) Skin: nl turgor Lymph: nl lymph nodes Results Result Diagram: 09/03/16 0535 09/03/16 0535 Results 24 hrs Laboratory Tests Test 09/03/16 05:35 White Blood Count 13.2 H Red Blood Count 4.10 L Hemoglobin 11.7 L Hematocrit 34.9 L Mean Corpuscular Volume 85.1 Mean Corpuscular Hemoglobin 28.5 L Mean Corpuscular Hemoglobin Concent 33.5 Red Cell Distribution Width 15.2 H Platelet Count 178 # Mean Platelet Volume 10.7 H Neutrophils % 75.4 Lymphocytes % 9.8 L Monocytes % 6.9 Eosinophils % 0.8 Basophils % 0.3 Nucleated Red Blood Cells % 0.2 H Neutrophils # 9.9 H Lymphocytes # 1.3 Monocytes # 0.9 Eosinophils # 0.1 Basophils # 0.0 Nucleated Red Blood Cells # 0.0 Sodium Level 131 L Potassium Level 4.0 Chloride Level 101 Carbon Dioxide Level 25 Anion Gap 9 Blood Urea Nitrogen 27 H Creatinine 0.58 Glucose Level 144 Calcium Level 9.2 Total Bilirubin 0.7 Direct Bilirubin 0.00 Indirect Bilirubin 0.7 Aspartate Amino Transf (AST/SGOT) 64 H Alanine Aminotransferase (ALT/SGPT) 78 H Alkaline Phosphatase 214 H Total Protein 5.9 L Albumin 2.4 L Globulin 3.50 H Albumin/Globulin Ratio 0.68 Medications Medications Current Medications Ondansetron HCl (Zofran Inj) 4 mg Q6H PRN IV NAUSEA AND/OR VOMITING; Start at 15:00 Acetaminophen (Tylenol Liquid) 650 mg Q6H PRN GTB PAIN LEVEL 1-3 OR FEVER Last administered on 08/31/16 21:02; Admin Dose 650 MG; Start 08/30/16 at 06:00 Digoxin (Digoxin) 0.125 mg DAILY@13 GTB Last administered on 09/03/16 12:18; Admin Dose 0.125 MG; Start 08/30/16 at 13:00 Magnesium Hydroxide (Milk Of Mag) 30 ml Q24H PRN GTB CONSTIPATION; Start at 19:30 Lansoprazole (Prevacid) 30 mg DAILY@06 GTB Last administered on 09/03/16 06:13 ; Admin Dose 30 MG; Start 08/30/16 at 07:00 Atorvastatin Calcium (Lipitor) 40 mg HS GTB Last administered on 09/02/16 22: 03; Admin Dose 40 MG; Start 08/30/16 at 21:00 Enoxaparin Sodium (Lovenox) 40 mg DAILY SC Last administered on 09/03/16 09:33 ; Admin Dose 40 MG; Start 08/31/16 at 09:00 Metoprolol Tartrate 12.5 mg 12.5 mg BID GTB Last administered on 09/03/16 09: 29; Admin Dose 12.5 MG; Start 08/31/16 at 09:30 Dextrose 1,000 ml @ 70 mls/hr [id number] IV Last administered on 09/03/16 03:36 ; Admin Dose 70 MLS/HR; Start 09/01/16 at 09:00 Meropenem (Merrem 1 Gm/100 ml (Pmx)) 100 ml @ 200 mls/hr Q8 IVPB Last administered on 09/03/16 13:41; Admin Dose 200 MLS/HR; Start 09/02/16 at 08:00 Aspirin (Aspirin) 81 mg DAILY NGT Last administered on 09/03/16 09:29; Admin Dose 81 MG; Start 09/02/16 at 09:00 Valsartan (Diovan) 80 mg DAILY GTB Last administered on 09/03/16 09:29; Admin Dose 80 MG; Start 09/02/16 at 09:00 Furosemide (Lasix) 20 mg DAILY@06 GTB Last administered on 09/03/16 06:13; Admin Dose 20 MG; Start 09/02/16 at 09:00 Doxycycline Hyclate (Vibramycin) 100 mg BID PEG Last administered on 09/03/16 09:29; Admin Dose 100 MG; Start 09/03/16 at 09:00 NII KERN MD Sep 03, 2016 15:25
--- NOTE | 2016-09-03 15:25 | SP ---
DATE OF PROCEDURE: 09/02/2016 ELECTROENCEPHALOGRAM HISTORY: This is an 89-year-old woman who was admitted following a stroke and had altered mental st atus. CURRENT MEDICATIONS: 1. Aspirin. 2. Diovan. 3. Lasix. PROCEDURE: Utilizing a 16-channel EEG machine, cap scalp electrodes were applied in accordance with International 10-20 system. [id number] and [id number] montages were displayed. Electrical i mpedances were measured and reported. DESCRIPTION: During the resting state, posterior dominant rhythm of about 5 to 6 Hz were seen bihem ispherically. Photic stimulation had a good response. Hyperventilation was not performed. There w as no focal lateralizing or epileptiform discharge identified. INTERPRETATION: This is an abnormal EEG because of presence of generalized bihemispheric background slowing without any epileptiform activity consistent with encephalopathy. Please correlate these f indings with the patient's clinical picture. Dictated By: NII COPE/DYANA Conf#: [id number] DID#: [id number]
[2016-09-03 20:01] VITALS: BP 118/72; RESP 16
[2016-09-03] MEDS: ATORVASTATIN 40 MG TAB GTB SCH (21:20)
[2016-09-04 05:35] LABS: ADD SCAN DIFF NO
[2016-09-04] MEDS: MEROPENEM 1 GM/100 ML (PMX) 100 ML IVPB SCH ×3 (05:39→22:50)
[2016-09-04] MEDS: LANSOPRAZOLE 30 MG CAP GTB SCH (05:42)
[2016-09-04] MEDS: ACETAMINOPHEN 650MG/20.3ML CUP GTB PRN ×2 (05:42→21:48)
[2016-09-04] MEDS: FUROSEMIDE 20 MG TAB GTB SCH (05:42)
[2016-09-04] MEDS: LEVOTHYROXINE 125 MCG TAB GTB SCH (05:42)
[2016-09-04 05:57] LABS: ALBUMIN 2.1 g/dl (3.3-4.9); POTASSIUM 3.6 mmol/L (3.5-5.1)
[2016-09-04 05:59] LABS: CREATININE 0.41 mg/dl (0.44-1.00)
[2016-09-04 06:00] LABS: ALBUMIN/GLOBULIN RATIO 0.67; BILIRUBIN,INDIRECT 0.6 mg/dl (0-1.1); BILIRUBIN,TOTAL 0.6 mg/dl (0.2-1.3); TOTAL PROTEIN 5.2 g/dl (6.1-8.1)
[2016-09-04 06:01] LABS: CALCIUM 8.3 mg/dl (8.4-10.2)
--- NOTE | 2016-09-04 07:21 | CONS ---
Date/Time of Note Date/Time of Note DATE: 09/04/16 TIME: 07:18 Assessment/Plan Assessment/Plan Chief Complaint/Hosp Course 1) AMS - unclear if this is normal variation or sign of infection WBC was elevated and slight fever possible infectious sources would include urine, lung and liver (less likely) will change antibiotics to vanco/merrem get nasal swab for MRSA check procalcitonin 08/31 - about the same, wbc is back to normal 09/01 - overall improved but not back to baseline according to the daughter will check ammonia level in a.m. 09/02 - ammonia level is ok still not waking up for me but is spontaneously moving RUE and resisting opening her R eye 09/03 - repeat head CT did not show any acute changes daughter reports that pt is more active when up in a chair or has her own clothes on at home 09/04 - no change 2) increase in LFT's abd u/s is pending due to CHF? check BNP and lipase in a.m. 08/31 - abd u/s was ok and LFT's are improving BNP was elevated 09/02 - overall improved but still elevated merrem should cover biliary bacterial organisms as enterococcus is not common for these infections 09/03 - no change 09/04 - improved 3) fever and mild leukocytosis possible RML infiltrate and probable UTI CT chest is pending start continue vanco and start merrem, to cover for HCAP and aspiration and resistant organisms in urein check procalcitonin, check nasal for MRSA 09/04 - pt had foul smelling loose stool yesterday, c.dif is pending wbc for today is pending continue with merrem/doxy 4) possible pneumonia, nurse reports no coughing CT chest is pending check BNP vanco and merrem will cover aspiration and HCAP. 08/31 - CT chest has MARY ANNE patchy infiltrate, not an area of usual aspiration will continue treatment for possible HCAP if MRSA screen is negative will d/c vanco 09/01 - neg for MRSA, d/c vanco continue with merrem 09/02 - no change, await procalcitonin 09/03 - WBC still mildly elevated will add doxycycline to cover atypicals and MRSA 09/04 - stable, on merrem/doxy 5) pyuria, probable UTI urine cx has GNR vanco/merrem will cover resistant organisms 08/31 - e.coli in urine is very sensitive, continue with merrem 6) decrease in platelets 09/01 - d/c vanco 09/02 - improved platelets today 09/03 - resolved Problems: Consultation Date/Type/Reason Admit Date/Time Aug 29, 2016 at 12:06 Initial Consult Date 08/30/16 Type of Consultation: ID Referring Provider: JENISE GERMAN MD 24 HR Interval Summary Subjective hx not possible: pt non-verbal (pt opened her eyes when her name was called, otherwise no response) Exam/Review of Systems Vital Signs Vitals Vital Signs Date Time Temp Pulse Resp B/P Pulse Ox O2 Delivery O2 Flow Rate FiO2 09/04/16 00:45 Nasal Cannula 2.0 09/03/16 20:01 98.1 74 16 118/72 95 09/03/16 16:37 21 Intake and Output 09/03/16 09/03/16 09/04/16 15:00 23:00 07:00 Intake Total 100 ml 1670 ml 1260 ml Balance 100 ml 1670 ml 1260 ml Exam Constitutional: non-verbal Head: normocephalic Eyes: nl sclera Respiratory: clear to auscultation Cardiovascular: irregular rhythm Gastrointestinal: non-tender, soft Results Result Diagram: 09/03/16 0535 09/04/16 0435 Results 24 hrs Laboratory Tests Test 09/04/16 04:35 Sodium Level 129 L Potassium Level 3.6 Chloride Level 97 Carbon Dioxide Level 24 Anion Gap 12 Blood Urea Nitrogen 24 H Creatinine 0.41 L Glucose Level 112 Calcium Level 8.3 L Total Bilirubin 0.6 Direct Bilirubin 0.00 Indirect Bilirubin 0.6 Aspartate Amino Transf (AST/SGOT) 54 H Alanine Aminotransferase (ALT/SGPT) 62 Alkaline Phosphatase 177 H Total Protein 5.2 L Albumin 2.1 L Globulin 3.10 Albumin/Globulin Ratio 0.67 Medications Medications Current Medications Ondansetron HCl (Zofran Inj) 4 mg Q6H PRN IV NAUSEA AND/OR VOMITING; Start at 15:00 Acetaminophen (Tylenol Liquid) 650 mg Q6H PRN GTB PAIN LEVEL 1-3 OR FEVER Last administered on 09/04/16t 05:42; Admin Dose 650 MG; Start 08/30/16 at 06:00 Digoxin (Digoxin) 0.125 mg DAILY@13 GTB Last administered on 09/03/16 12:18; Admin Dose 0.125 MG; Start 08/30/16 at 13:00 Magnesium Hydroxide (Milk Of Mag) 30 ml Q24H PRN GTB CONSTIPATION; Start at 19:30 Lansoprazole (Prevacid) 30 mg DAILY@06 GTB Last administered on 09/04/16 05:42 ; Admin Dose 30 MG; Start 08/30/16 at 07:00 Atorvastatin Calcium (Lipitor) 40 mg HS GTB Last administered on 09/03/16 21: 20; Admin Dose 40 MG; Start 08/30/16 at 21:00 Enoxaparin Sodium (Lovenox) 40 mg DAILY SC Last administered on 09/03/16 09:33 ; Admin Dose 40 MG; Start 08/31/16 at 09:00 Metoprolol Tartrate 12.5 mg 12.5 mg BID GTB Last administered on 09/03/16 09: 29; Admin Dose 12.5 MG; Start 08/31/16 at 09:30 Dextrose 1,000 ml @ 70 mls/hr [id number] IV Last administered on 09/03/16 21:31 ; Admin Dose 70 MLS/HR; Start 09/01/16 at 09:00 Meropenem (Merrem 1 Gm/100 ml (Pmx)) 100 ml @ 200 mls/hr Q8 IVPB Last administered on 09/04/16 05:39; Admin Dose 200 MLS/HR; Start 09/02/16 at 08:00 Aspirin (Aspirin) 81 mg DAILY NGT Last administered on 09/03/16 09:29; Admin Dose 81 MG; Start 09/02/16 at 09:00 Valsartan (Diovan) 80 mg DAILY GTB Last administered on 09/03/16 09:29; Admin Dose 80 MG; Start 09/02/16 at 09:00 Furosemide (Lasix) 20 mg DAILY@06 GTB Last administered on 09/04/16 05:42; Admin Dose 20 MG; Start 09/02/16 at 09:00 Doxycycline Hyclate (Vibramycin) 100 mg BID PEG Last administered on 09/03/16 21:20; Admin Dose 100 MG; Start 09/03/16 at 09:00 BRAN MIRANDA MD Sep 04, 2016 07:21
[2016-09-04 08:42] VITALS: BP 119/56; RESP 18
[2016-09-04] MEDS: IPRATROPIUM (NEB) 0.5 MG/2.5 ML AMP HHN SCH ×3 (08:46→17:11)
[2016-09-04] MEDS: LEVALBUTEROL (NEB) 0.31 MG/3 ML AMP HHN SCH ×3 (08:46→17:11)
[2016-09-04] MEDS: ENOXAPARIN 40 MG/0.4 ML SYG SC SCH (08:53)
[2016-09-04] MEDS: DOXYCYCLINE 100 MG TAB PEG SCH ×2 (08:53→21:48)
[2016-09-04] MEDS: ASPIRIN 81 MG TAB NGT SCH (08:53)
[2016-09-04] MEDS: VALSARTAN 80 MG TAB GTB SCH (08:53)
[2016-09-04] MEDS: METOPROLOL 25 MG TAB GTB SCH ×2 (08:54→21:48)
[2016-09-04 10:26] LABS: ABNORMAL IP MESSAGE 1; BASOPHILS % 0.3 % (0.0-2.0); EOSINOPHILS # 0.2 10^3/ul (0.0-0.5); EOSINOPHILS % 1.4 % (0.0-7.0); HEMATOCRIT 35.5 % (37.0-47.0); LYMPHOCYTES # 0.9 10^3/ul (0.8-2.9); LYMPHOCYTES % 7.7 % (15.0-51.0); MEAN CORPUSCULAR HEMOGLOBIN 29.1 pg (29.0-33.0); MEAN CORPUSCULAR HGB CONC 33.8 g/dl (32.0-37.0); MEAN CORPUSCULAR VOLUME 86.2 fl (82.0-101.0); MEAN PLATELET VOLUME 12.2 fl (7.4-10.4); MONOCYTE # 0.8 10^3/ul (0.3-0.9); MONOCYTES % 6.7 % (0.0-11.0); NEUTROPHIL # 9.2 10^3/ul (1.6-7.5); NEUTROPHILS % 78.4 % (39.0-77.0); NUCLEATED RED BLOOD CELLS # 0.3 10^3/ul (0.0-0.0); NUCLEATED RED BLOOD CELLS% 2.1 /100WBC (0.0-0.0); RED BLOOD COUNT 4.12 10^6/ul (4.20-5.40); RED CELL DISTRIBUTION WIDTH 15.9 % (11.5-14.5); WHITE BLOOD COUNT 11.8 10^3/ul (4.8-10.8)
[2016-09-04 10:30] LABS: PLATELET COUNT 246 10^3/UL (140-415)
--- NOTE | 2016-09-04 11:02 | PN ---
Date/Time of Note Date/Time of Note DATE: 09/04/16 TIME: 10:59 Assessment/Plan VTE Prophylaxis VTE Prophylaxis Intervention: LMWH Lines/Catheters IV Catheter Type (from Nrs): Peripheral IV Urinary Cath still in place: No Assessment/Plan Assessment/Plan Diarrhea - + Cdif. Starting IV Flagyl today Pneumonia - on meropenem and doxy CT Brain with no acute findings. EEG completed per Neuro, await results CHF resolved Anemia, received 2 units packed cells and stool ob is neg Liver tests sl better, GI raised issue of cholangitis, rev with ID, not a candidate for ercp. HTN - cont diovan and lasix Goals of care - Family does not fully understand prognosis. Cont to discuss transition to hospice, especially given new C dif infection. Subjective 24 Hr Interval Summary Free Text/Dictation nonverbal, lethargic. Multiple family members at bedside. Asking how long it will take for her infection to be treated. They believe that she opens her eyes and times and recognizes them. Seem to not fully understand prognosis. Exam/Review of Systems Vital Signs Vitals Vital Signs Date Time Temp Pulse Resp B/P Pulse Ox O2 Delivery O2 Flow Rate FiO2 09/04/16 08:48 70 16 96 21 09/04/16 08:42 98.4 119/56 09/04/16 00:45 Nasal Cannula 2.0 Intake and Output 09/03/16 09/03/16 09/04/16 15:00 23:00 07:00 Intake Total 100 ml 1670 ml 1260 ml Balance 100 ml 1670 ml 1260 ml Exam Constitutional: frail, non-verbal Respiratory: diminished breath sounds Cardiovascular: nl pulses, regular rate and rhythm Gastrointestinal: bowel sounds, non-tender, soft Results Result Diagram: 09/04/16 0435 09/04/16 0435 Results 24 hrs Laboratory Tests Test 09/04/16 04:35 White Blood Count 11.8 H Red Blood Count 4.12 L Hemoglobin 12.0 Hematocrit 35.5 L Mean Corpuscular Volume 86.2 Mean Corpuscular Hemoglobin 29.1 Mean Corpuscular Hemoglobin Concent 33.8 Red Cell Distribution Width 15.9 H Platelet Count 246 # Mean Platelet Volume 12.2 H Neutrophils % 78.4 H Lymphocytes % 7.7 L Monocytes % 6.7 Eosinophils % 1.4 Basophils % 0.3 Nucleated Red Blood Cells % 2.1 H Neutrophils # 9.2 H Lymphocytes # 0.9 Monocytes # 0.8 Eosinophils # 0.2 Basophils # 0.0 Nucleated Red Blood Cells # 0.3 H Sodium Level 129 L Potassium Level 3.6 Chloride Level 97 Carbon Dioxide Level 24 Anion Gap 12 Blood Urea Nitrogen 24 H Creatinine 0.41 L Glucose Level 112 Calcium Level 8.3 L Total Bilirubin 0.6 Direct Bilirubin 0.00 Indirect Bilirubin 0.6 Aspartate Amino Transf (AST/SGOT) 54 H Alanine Aminotransferase (ALT/SGPT) 62 Alkaline Phosphatase 177 H Total Protein 5.2 L Albumin 2.1 L Globulin 3.10 Albumin/Globulin Ratio 0.67 Medications Medications Current Medications Ondansetron HCl (Zofran Inj) 4 mg Q6H PRN IV NAUSEA AND/OR VOMITING; Start at 15:00 Acetaminophen (Tylenol Liquid) 650 mg Q6H PRN GTB PAIN LEVEL 1-3 OR FEVER Last administered on 09/04/16 05:42; Admin Dose 650 MG; Start 08/30/16 at 06:00 Digoxin (Digoxin) 0.125 mg DAILY@13 GTB Last administered on 09/03/16 12:18; Admin Dose 0.125 MG; Start 08/30/16 at 13:00 Magnesium Hydroxide (Milk Of Mag) 30 ml Q24H PRN GTB CONSTIPATION; Start at 19:30 Lansoprazole (Prevacid) 30 mg DAILY@06 GTB Last administered on 09/04/16 05:42 ; Admin Dose 30 MG; Start 08/30/16 at 07:00 Atorvastatin Calcium (Lipitor) 40 mg HS GTB Last administered on 09/03/16 21: 20; Admin Dose 40 MG; Start 08/30/16 at 21:00 Enoxaparin Sodium (Lovenox) 40 mg DAILY SC Last administered on 09/04/16 08:53 ; Admin Dose 40 MG; Start 08/31/16 at 09:00 Metoprolol Tartrate 12.5 mg 12.5 mg BID GTB Last administered on 09/04/16 08: 54; Admin Dose 12.5 MG; Start 08/31/16 at 09:30 Dextrose 1,000 ml @ 70 mls/hr [id number] IV Last administered on 09/03/16 21:31 ; Admin Dose 70 MLS/HR; Start 09/01/16 at 09:00 Meropenem (Merrem 1 Gm/100 ml (Pmx)) 100 ml @ 200 mls/hr Q8 IVPB Last administered on 09/04/16 05:39; Admin Dose 200 MLS/HR; Start 09/02/16 at 08:00 Aspirin (Aspirin) 81 mg DAILY NGT Last administered on 09/04/16 08:53; Admin Dose 81 MG; Start 09/02/16 at 09:00 Valsartan (Diovan) 80 mg DAILY GTB Last administered on 09/04/16 08:53; Admin Dose 80 MG; Start 09/02/16 at 09:00 Furosemide (Lasix) 20 mg DAILY@06 GTB Last administered on 09/04/16 05:42; Admin Dose 20 MG; Start 09/02/16 at 09:00 Doxycycline Hyclate 100 mg 100 mg BID PEG Last administered on 09/04/16 08:53 ; Admin Dose 100 MG; Start 09/03/16 at 09:00 Metronidazole (Flagyl 500 Mg (Pmx)) 100 ml @ 100 mls/hr Q8 IVPB ; Start at 14:00 RYAN HERNANDEZ MD Sep 04, 2016 11:02
[2016-09-04] MEDS: DIGOXIN 0.125 MG TAB GTB SCH (13:32)
[2016-09-04] MEDS: metroNIDAZOLE 500 MG/NS (PMX) 100 ML IVPB SCH ×2 (13:32→21:47)
[2016-09-04] MEDS: DEXTROSE 5% 1,000 ML IV SCH ×2 (13:38→22:48)
[2016-09-04 20:51] VITALS: BP 130/62; RESP 18
[2016-09-04] MEDS: ATORVASTATIN 40 MG TAB GTB SCH (21:48)
[2016-09-05] MEDS: MEROPENEM 1 GM/100 ML (PMX) 100 ML IVPB SCH ×3 (05:09→21:53)
[2016-09-05] MEDS: LANSOPRAZOLE 30 MG CAP GTB SCH (05:12)
[2016-09-05] MEDS: FUROSEMIDE 20 MG TAB GTB SCH (05:12)
[2016-09-05 05:27] LABS: ADD SCAN DIFF NO
[2016-09-05 05:38] LABS: ABNORMAL IP MESSAGE 1; BASOPHIL # 0.1 10^3/ul (0.0-0.1); BASOPHILS % 0.4 % (0.0-2.0); EOSINOPHILS # 0.1 10^3/ul (0.0-0.5); HEMATOCRIT 35.5 % (37.0-47.0); HEMOGLOBIN 11.7 g/dl (12.0-16.0); LYMPHOCYTES # 1.5 10^3/ul (0.8-2.9); LYMPHOCYTES % 12.4 % (15.0-51.0); MEAN CORPUSCULAR HEMOGLOBIN 29.1 pg (29.0-33.0); MEAN CORPUSCULAR VOLUME 88.3 fl (82.0-101.0); MEAN PLATELET VOLUME 11.1 fl (7.4-10.4); MONOCYTE # 0.8 10^3/ul (0.3-0.9); MONOCYTES % 6.5 % (0.0-11.0); NEUTROPHIL # 8.7 10^3/ul (1.6-7.5); NEUTROPHILS % 74.4 % (39.0-77.0); PLATELET COUNT 210 10^3/UL (140-415); RED BLOOD COUNT 4.02 10^6/ul (4.20-5.40); RED CELL DISTRIBUTION WIDTH 15.2 % (11.5-14.5); WHITE BLOOD COUNT 11.7 10^3/ul (4.8-10.8)
[2016-09-05] MEDS: metroNIDAZOLE 500 MG/NS (PMX) 100 ML IVPB SCH (05:40)
[2016-09-05] MEDS: LEVOTHYROXINE 125 MCG TAB GTB SCH (05:40)
[2016-09-05 05:49] LABS: POTASSIUM 3.5 mmol/L (3.5-5.1)
[2016-09-05 05:51] LABS: CREATININE 0.51 mg/dl (0.44-1.00)
[2016-09-05 05:52] LABS: CALCIUM 8.7 mg/dl (8.4-10.2)
[2016-09-05 07:59] VITALS: BP 133/76; RESP 24
--- NOTE | 2016-09-05 08:01 | CONS ---
Date/Time of Note Date/Time of Note DATE: 09/05/16 TIME: 07:55 Assessment/Plan Assessment/Plan Chief Complaint/Hosp Course 1) AMS - unclear if this is normal variation or sign of infection WBC was elevated and slight fever possible infectious sources would include urine, lung and liver (less likely) will change antibiotics to vanco/merrem get nasal swab for MRSA check procalcitonin 08/31 - about the same, wbc is back to normal 09/01 - overall improved but not back to baseline according to the daughter will check ammonia level in a.m. 09/02 - ammonia level is ok still not waking up for me but is spontaneously moving RUE and resisting opening her R eye 09/03 - repeat head CT did not show any acute changes daughter reports that pt is more active when up in a chair or has her own clothes on at home 09/04 - no change 09/05 - a bit more interactive when relatives present according to the daughter 2) increase in LFT's abd u/s is pending due to CHF? check BNP and lipase in a.m. 08/31 - abd u/s was ok and LFT's are improving BNP was elevated 09/02 - overall improved but still elevated merrem should cover biliary bacterial organisms as enterococcus is not common for these infections 09/03 - no change 09/04 - improved 3) fever and mild leukocytosis possible RML infiltrate and probable UTI CT chest is pending start continue vanco and start merrem, to cover for HCAP and aspiration and resistant organisms in urein check procalcitonin, check nasal for MRSA 09/04 - pt had foul smelling loose stool yesterday, c.dif is pending wbc for today is pending continue with merrem/doxy 09/05 - stool had c.dif continue with merrem but d/c doxy since elevated wbc likely due to c.dif procalcitonin was elevated so continue with merrem thru 09/06 4) possible pneumonia, nurse reports no coughing CT chest is pending check BNP vanco and merrem will cover aspiration and HCAP. 08/31 - CT chest has MARY ANNE patchy infiltrate, not an area of usual aspiration will continue treatment for possible HCAP if MRSA screen is negative will d/c vanco 09/01 - neg for MRSA, d/c vanco continue with merrem 09/02 - no change, await procalcitonin 09/03 - WBC still mildly elevated will add doxycycline to cover atypicals and MRSA 09/04 - stable, on merrem/doxy 09/05 continue merrem thru 09/06 d/c doxycycline 5) pyuria, probable UTI urine cx has GNR vanco/merrem will cover resistant organisms 08/31 - e.coli in urine is very sensitive, continue with merrem 6) decrease in platelets 09/01 - d/c vanco 09/02 - improved platelets today 09/03 - resolved 7) c.dif 09/05 - less stools prior to start iv flagyl d/c iv flagyl and change to po vanco (via PEG) for a 10 day course Problems: Consultation Date/Type/Reason Admit Date/Time Aug 29, 2016 at 12:06 Initial Consult Date 08/30/16 Type of Consultation: ID Referring Provider: JENISE GERMAN MD 24 HR Interval Summary Free Text/Dictation pt was more interactive when relatives were present yesterday no diarrhea in the last day no V Exam/Review of Systems Vital Signs Vitals Vital Signs Date Time Temp Pulse Resp B/P Pulse Ox O2 Delivery O2 Flow Rate FiO2 09/04/16 20:51 99.1 74 18 130/62 97 09/04/16 17:10 21 09/04/16 08:00 Nasal Cannula 2.0 Intake and Output 09/04/16 09/04/16 09/05/16 15:00 23:00 07:00 Intake Total 540 ml 940 ml 1500 ml Balance 540 ml 940 ml 1500 ml Exam opens eyes and moves R arm only for me Constitutional: non-verbal Head: normocephalic Eyes: nl sclera Respiratory: clear to auscultation Cardiovascular: regular rate and rhythm Gastrointestinal: non-tender, soft Results Result Diagram: 09/05/16 0430 09/05/16 0430 Results 24 hrs Laboratory Tests Test 09/05/16 04:30 White Blood Count 11.7 H Red Blood Count 4.02 L Hemoglobin 11.7 L Hematocrit 35.5 L Mean Corpuscular Volume 88.3 Mean Corpuscular Hemoglobin 29.1 Mean Corpuscular Hemoglobin Concent 33.0 Red Cell Distribution Width 15.2 H Platelet Count 210 Mean Platelet Volume 11.1 H Neutrophils % 74.4 Lymphocytes % 12.4 L Monocytes % 6.5 Eosinophils % 1.0 Basophils % 0.4 Nucleated Red Blood Cells % 0.0 Neutrophils # 8.7 H Lymphocytes # 1.5 Monocytes # 0.8 Eosinophils # 0.1 Basophils # 0.1 Nucleated Red Blood Cells # 0.0 Sodium Level 132 L Potassium Level 3.5 Chloride Level 98 Carbon Dioxide Level 27 Anion Gap 11 Blood Urea Nitrogen 23 H Creatinine 0.51 Glucose Level 116 Calcium Level 8.7 Medications Medications Current Medications Ondansetron HCl (Zofran Inj) 4 mg Q6H PRN IV NAUSEA AND/OR VOMITING; Start at 15:00 Acetaminophen (Tylenol Liquid) 650 mg Q6H PRN GTB PAIN LEVEL 1-3 OR FEVER Last administered on 09/04/16 21:48; Admin Dose 650 MG; Start 08/30/16 at 06:00 Digoxin (Digoxin) 0.125 mg DAILY@13 GTB Last administered on 09/04/16 13:32; Admin Dose 0.125 MG; Start 08/30/16 at 13:00 Magnesium Hydroxide (Milk Of Mag) 30 ml Q24H PRN GTB CONSTIPATION; Start at 19:30 Lansoprazole (Prevacid) 30 mg DAILY@06 GTB Last administered on 09/05/16 05:12 ; Admin Dose 30 MG; Start 08/30/16 at 07:00 Atorvastatin Calcium (Lipitor) 40 mg HS GTB Last administered on 09/04/16 21: 48; Admin Dose 40 MG; Start 08/30/16 at 21:00 Enoxaparin Sodium (Lovenox) 40 mg DAILY SC Last administered on 09/04/16 08:53 ; Admin Dose 40 MG; Start 08/31/16 at 09:00 Metoprolol Tartrate 12.5 mg 12.5 mg BID GTB Last administered on 09/04/16 21: 48; Admin Dose 12.5 MG; Start 08/31/16 at 09:30 Dextrose 1,000 ml @ 70 mls/hr [id number] IV Last administered on 09/04/16 13:38 ; Admin Dose 70 MLS/HR; Start 09/01/16 at 09:00 Meropenem (Merrem 1 Gm/100 ml (Pmx)) 100 ml @ 200 mls/hr Q8 IVPB Last administered on 09/05/16 05:09; Admin Dose 200 MLS/HR; Start 09/02/16 at 08:00 Aspirin (Aspirin) 81 mg DAILY NGT Last administered on 09/04/16 08:53; Admin Dose 81 MG; Start 09/02/16 at 09:00 Valsartan (Diovan) 80 mg DAILY GTB Last administered on 09/04/16 08:53; Admin Dose 80 MG; Start 09/02/16 at 09:00 Furosemide (Lasix) 20 mg DAILY@06 GTB Last administered on 09/05/16 05:12; Admin Dose 20 MG; Start 09/02/16 at 09:00 Doxycycline Hyclate (Vibramycin) 100 mg BID PEG Last administered on 09/04/16 21:48; Admin Dose 100 MG; Start 09/03/16 at 09:00 Vancomycin HCl (Vancomycin Oral Syringe) 125 mg Q6 PEG ; Start 09/05/16 at 12:00 BRAN MIRANDA MD September 05, 2016 08:01
--- NOTE | 2016-09-05 08:24 | PN ---
Date/Time of Note Date/Time of Note DATE: 09/05/16 TIME: 08:22 Assessment/Plan VTE Prophylaxis VTE Prophylaxis Intervention: other Lines/Catheters [facility] ([facility] Peripheral IV Urinary Cath still in place: No Assessment/Plan Assessment/Plan 1. Pneumonia, abx per id 2. C diff, being treated 3. Impaired cognition, without change, neuro eval apprec 4. I again rev quality of life issues with daughter and introduced hospice rx, she is struggling with this concept 5. Will ask PT to see 6. Low sodium, will dc iv 7. Will ask case picker to eval--re caloric needs Subjective 24 Hr Interval Summary Subjective hx not possible: pt non-verbal Exam/Review of Systems Vital Signs Vitals Vital Signs Date Time Temp Pulse Resp B/P Pulse Ox O2 Delivery O2 Flow Rate FiO2 09/05/16 07:59 98.6 88 24 133/76 97 09/04/16 17:10 21 09/04/16 08:00 Nasal Cannula 2.0 Intake and Output 09/04/16 09/04/16 09/05/16 15:00 23:00 07:00 Intake Total 540 ml 940 ml 1500 ml Balance 540 ml 940 ml 1500 ml Exam Neck: No jvd Respiratory: diminished breath sounds Cardiovascular: irregular rhythm Gastrointestinal: soft Extremities: edema (2+ sacral edema) Neurological: other (no respone to verbal or tactile stim) Results Result Diagram: 09/05/16 0430 09/05/16 0430 Results 24 hrs Laboratory Tests Test 09/05/16 04:30 White Blood Count 11.7 H Red Blood Count 4.02 L Hemoglobin 11.7 L Hematocrit 35.5 L Mean Corpuscular Volume 88.3 Mean Corpuscular Hemoglobin 29.1 Mean Corpuscular Hemoglobin Concent 33.0 Red Cell Distribution Width 15.2 H Platelet Count 210 Mean Platelet Volume 11.1 H Neutrophils % 74.4 Lymphocytes % 12.4 L Monocytes % 6.5 Eosinophils % 1.0 Basophils % 0.4 Nucleated Red Blood Cells % 0.0 Neutrophils # 8.7 H Lymphocytes # 1.5 Monocytes # 0.8 Eosinophils # 0.1 Basophils # 0.1 Nucleated Red Blood Cells # 0.0 Sodium Level 132 L Potassium Level 3.5 Chloride Level 98 Carbon Dioxide Level 27 Anion Gap 11 Blood Urea Nitrogen 23 H Creatinine 0.51 Glucose Level 116 Calcium Level 8.7 Medications Medications Current Medications Ondansetron HCl (Zofran Inj) 4 mg Q6H PRN IV NAUSEA AND/OR VOMITING; Start at 15:00 Acetaminophen (Tylenol Liquid) 650 mg Q6H PRN GTB PAIN LEVEL 1-3 OR FEVER Last administered on 09/04/16 21:48; Admin Dose 650 MG; Start 08/30/16 at 06:00 Digoxin (Digoxin) 0.125 mg DAILY@13 GTB Last administered on 09/04/16 13:32; Admin Dose 0.125 MG; Start 08/30/16 at 13:00 Magnesium Hydroxide (Milk Of Mag) 30 ml Q24H PRN GTB CONSTIPATION; Start at 19:30 Lansoprazole (Prevacid) 30 mg DAILY@06 GTB Last administered on 09/05/16 05:12 ; Admin Dose 30 MG; Start 08/30/16 at 07:00 Atorvastatin Calcium (Lipitor) 40 mg HS GTB Last administered on 09/04/16 21: 48; Admin Dose 40 MG; Start 08/30/16 at 21:00 Enoxaparin Sodium (Lovenox) 40 mg DAILY SC Last administered on 09/04/16 08:53 ; Admin Dose 40 MG; Start 08/31/16 at 09:00 Metoprolol Tartrate 12.5 mg 12.5 mg BID GTB Last administered on 09/04/16 21: 48; Admin Dose 12.5 MG; Start 08/31/16 at 09:30 Dextrose 1,000 ml @ 70 mls/hr [id number] IV Last administered on 09/04/16 13:38 ; Admin Dose 70 MLS/HR; Start 09/01/16 at 09:00 Meropenem (Merrem 1 Gm/100 ml (Pmx)) 100 ml @ 200 mls/hr Q8 IVPB Last administered on 09/05/16 05:09; Admin Dose 200 MLS/HR; Start 09/02/16 at 08:00 Aspirin (Aspirin) 81 mg DAILY NGT Last administered on 09/04/16 08:53; Admin Dose 81 MG; Start 09/02/16 at 09:00 Valsartan (Diovan) 80 mg DAILY GTB Last administered on 09/04/16 08:53; Admin Dose 80 MG; Start 09/02/16 at 09:00 Furosemide (Lasix) 20 mg DAILY@06 GTB Last administered on 09/05/16 05:12; Admin Dose 20 MG; Start 09/02/16 at 09:00 Doxycycline Hyclate (Vibramycin) 100 mg BID PEG Last administered on 09/04/16 21:48; Admin Dose 100 MG; Start 09/03/16 at 09:00 Vancomycin HCl (Vancomycin Oral Syringe) 125 mg Q6 PEG ; Start 09/05/16 at 12:00 CHANG BECERRA MD September 05, 2016 08:24
[2016-09-05] MEDS ORDERED: POTASSIUM CHLORIDE 20 MEQ POWDER FOR ORAL SOLN JT ONE (08:30)
[2016-09-05] MEDS: LEVALBUTEROL (NEB) 0.31 MG/3 ML AMP HHN SCH ×3 (09:08→17:01)
[2016-09-05] MEDS: IPRATROPIUM (NEB) 0.5 MG/2.5 ML AMP HHN SCH ×3 (09:08→17:01)
[2016-09-05] MEDS: ENOXAPARIN 40 MG/0.4 ML SYG SC SCH (09:50)
[2016-09-05] MEDS: VALSARTAN 80 MG TAB GTB SCH (09:58)
[2016-09-05] MEDS: DOXYCYCLINE 100 MG TAB PEG SCH ×2 (09:58→21:53)
[2016-09-05] MEDS: ASPIRIN 81 MG TAB NGT SCH (09:59)
[2016-09-05] MEDS: METOPROLOL 25 MG TAB GTB SCH ×2 (09:59→21:54)
[2016-09-05] MEDS: VANCOMYCIN HCL 250 MG/5ML POSYG PEG SCH ×2 (12:23→17:37)
[2016-09-05] MEDS: DIGOXIN 0.125 MG TAB GTB SCH (12:23)
[2016-09-05 19:30] VITALS: BP 133/55; RESP 20
[2016-09-05] MEDS: ATORVASTATIN 40 MG TAB GTB SCH (21:53)
[2016-09-06] MEDS: VANCOMYCIN HCL 250 MG/5ML POSYG PEG SCH ×4 (00:14→17:16)
[2016-09-06 05:38] LABS: ADD SCAN DIFF NO
[2016-09-06] MEDS: FUROSEMIDE 20 MG TAB GTB SCH (05:43)
[2016-09-06] MEDS: LANSOPRAZOLE 30 MG CAP GTB SCH (05:43)
[2016-09-06] MEDS: MEROPENEM 1 GM/100 ML (PMX) 100 ML IVPB SCH ×3 (05:43→21:32)
[2016-09-06 05:45] LABS: BASOPHILS % 0.3 % (0.0-2.0); EOSINOPHILS # 0.1 10^3/ul (0.0-0.5); EOSINOPHILS % 0.8 % (0.0-7.0); HEMATOCRIT 37.9 % (37.0-47.0); HEMOGLOBIN 12.3 g/dl (12.0-16.0); LYMPHOCYTES % 9.4 % (15.0-51.0); MEAN CORPUSCULAR HEMOGLOBIN 28.3 pg (29.0-33.0); MEAN CORPUSCULAR HGB CONC 32.5 g/dl (32.0-37.0); MEAN CORPUSCULAR VOLUME 87.3 fl (82.0-101.0); MEAN PLATELET VOLUME 10.9 fl (7.4-10.4); MONOCYTE # 0.5 10^3/ul (0.3-0.9); MONOCYTES % 5.1 % (0.0-11.0); NEUTROPHIL # 8.7 10^3/ul (1.6-7.5); PLATELET COUNT 226 10^3/UL (140-415); RED BLOOD COUNT 4.34 10^6/ul (4.20-5.40); RED CELL DISTRIBUTION WIDTH 15.6 % (11.5-14.5); WHITE BLOOD COUNT 10.6 10^3/ul (4.8-10.8)
[2016-09-06 06:09] LABS: CALCIUM 9.1 mg/dl (8.4-10.2); CREATININE 0.47 mg/dl (0.44-1.00); MAGNESIUM 2.1 mg/dl (1.7-2.5); PHOSPHORUS 2.5 mg/dl (2.5-4.9); POTASSIUM 4.4 mmol/L (3.5-5.1)
[2016-09-06] MEDS: LEVOTHYROXINE 125 MCG TAB GTB SCH (06:20)
[2016-09-06 06:41] LABS: ALBUMIN 2.1 g/dl (3.3-4.9)
[2016-09-06 06:42] LABS: POTASSIUM 4.6 mmol/L (3.5-5.1)
[2016-09-06 06:44] LABS: ALBUMIN/GLOBULIN RATIO 0.63; BILIRUBIN,INDIRECT 0.4 mg/dl (0-1.1); BILIRUBIN,TOTAL 0.4 mg/dl (0.2-1.3); CREATININE 0.46 mg/dl (0.44-1.00); TOTAL PROTEIN 5.4 g/dl (6.1-8.1)
[2016-09-06 06:45] LABS: CALCIUM 9.1 mg/dl (8.4-10.2)
--- NOTE | 2016-09-06 07:43 | PN ---
Date/Time of Note Date/Time of Note DATE: 09/06/16 TIME: 07:39 Assessment/Plan VTE Prophylaxis VTE Prophylaxis Intervention: LMWH Lines/Catheters IV C[facility]ter Type (from [facility]): Peripheral IV Urinary Cath still in place: No Assessment/Plan Assessment/Plan 1. Cognitive status sl better, rev same with daughter and again raised issue of hospice. She continues to struggle with this as feeling pressure from her brothers to cont rx even though her brothers do not participate in Katerin's care. 2. Edema in part sec to albumin, cxr ordered, pending this will inc lasix. 3. Mild hyponatremia, sec to chf and or infiltrate, can observe. 4. Chronic atrial fibrillation 5. C diff, being treated, repeat lab per id Subjective 24 Hr Interval Summary Constitutional: other (her eyes were open this am. She did not respond to name. ) Exam/Review of Systems Vital Signs Vitals Vital Signs Date Time Temp Pulse Resp B/P Pulse Ox O2 Delivery O2 Flow Rate FiO2 09/05/16 20:00 Nasal Cannula 2.0 09/05/16 19:30 98.4 99 20 133/55 94 09/05/16 17:03 21 Intake and Output 09/05/16 09/05/16 09/06/16 15:00 23:00 07:00 Intake Total 260 ml 750 ml 600 ml Balance 260 ml 750 ml 600 ml Exam Neck: No jvd Respiratory: diminished breath sounds Cardiovascular: regular rate and rhythm Gastrointestinal: soft, No tender Extremities: edema (2+ sacral edema, no leg edema) Neurological: other (no movement to gentle tactile stimuli) Results Result Diagram: 09/06/16 0511 09/06/16 0511 Results 24 hrs Laboratory Tests Test 09/06/16 05:11 White Blood Count 10.6 Red Blood Count 4.34 Hemoglobin 12.3 Hematocrit 37.9 Mean Corpuscular Volume 87.3 Mean Corpuscular Hemoglobin 28.3 L Mean Corpuscular Hemoglobin Concent 32.5 Red Cell Distribution Width 15.6 H Platelet Count 226 Mean Platelet Volume 10.9 H Neutrophils % 82.0 H Lymphocytes % 9.4 L Monocytes % 5.1 Eosinophils % 0.8 Basophils % 0.3 Nucleated Red Blood Cells % 0.0 Neutrophils # 8.7 H Lymphocytes # 1.0 Monocytes # 0.5 Eosinophils # 0.1 Basophils # 0.0 Nucleated Red Blood Cells # 0.0 Sodium Level 132 L Potassium Level 4.6 Chloride Level 101 Carbon Dioxide Level 25 Anion Gap 11 Blood Urea Nitrogen 24 H Creatinine 0.46 Glucose Level 116 Calcium Level 9.1 Phosphorus Level 2.5 Magnesium Level 2.1 Total Bilirubin 0.4 Direct Bilirubin 0.00 Indirect Bilirubin 0.4 Aspartate Amino Transf (AST/SGOT) 63 H Alanine Aminotransferase (ALT/SGPT) 59 Alkaline Phosphatase 203 H Total Protein 5.4 L Albumin 2.1 L Globulin 3.30 H Albumin/Globulin Ratio 0.63 Medications Medications Current Medications Ondansetron HCl (Zofran Inj) 4 mg Q6H PRN IV NAUSEA AND/OR VOMITING; Start at 15:00 Acetaminophen (Tylenol Liquid) 650 mg Q6H PRN GTB PAIN LEVEL 1-3 OR FEVER Last administered on 09/04/16 21:48; Admin Dose 650 MG; Start 08/30/16 at 06:00 Digoxin (Digoxin) 0.125 mg DAILY@13 GTB Last administered on 09/05/16 12:23; Admin Dose 0.125 MG; Start 08/30/16 at 13:00 Magnesium Hydroxide (Milk Of Mag) 30 ml Q24H PRN GTB CONSTIPATION; Start at 19:30 Lansoprazole (Prevacid) 30 mg DAILY@06 GTB Last administered on 09/06/16 05:43 ; Admin Dose 30 MG; Start 08/30/16 at 07:00 Atorvastatin Calcium (Lipitor) 40 mg HS GTB Last administered on 09/05/16 21:53 ; Admin Dose 40 MG; Start 08/30/16 at 21:00 Enoxaparin Sodium (Lovenox) 40 mg DAILY SC Last administered on 09/05/16 09:50 ; Admin Dose 40 MG; Start 08/31/16 at 09:00 Metoprolol Tartrate 12.5 mg 12.5 mg BID GTB Last administered on 09/05/16 21:54 ; Admin Dose 12.5 MG; Start 08/31/16 at 09:30 Meropenem (Merrem 1 Gm/100 ml (Pmx)) 100 ml @ 200 mls/hr Q8 IVPB Last administered on 09/06/16 05:43; Admin Dose 200 MLS/HR; Start 09/02/16 at 08:00 Aspirin (Aspirin) 81 mg DAILY NGT Last administered on 09/05/16 09:59; Admin Dose 81 MG; Start 09/02/16 at 09:00 Valsartan (Diovan) 80 mg DAILY GTB Last administered on 09/05/16 09:58; Admin Dose 80 MG; Start 09/02/16 at 09:00 Furosemide (Lasix) 20 mg DAILY@06 GTB Last administered on 09/06/16 05:43; Admin Dose 20 MG; Start 09/02/16 at 09:00 Doxycycline Hyclate (Vibramycin) 100 mg BID PEG Last administered on 09/05/16 21:53; Admin Dose 100 MG; Start 09/03/16 at 09:00 Vancomycin HCl (Vancomycin Oral Syringe) 125 mg Q6 PEG Last administered on 09/06 05:43; Admin Dose 125 MG; Start 09/05/16 at 12:00 CHANG BECERRA MD September 06, 2016 07:43
[2016-09-06 07:57] VITALS: BP 137/60; RESP 20
--- NOTE | 2016-09-06 07:59 | CONS ---
Date/Time of Note Date/Time of Note DATE: 09/06/16 TIME: 07:53 Assessment/Plan Assessment/Plan Chief Complaint/Hosp Course 1) AMS - unclear if this is normal variation or sign of infection WBC was elevated and slight fever possible infectious sources would include urine, lung and liver (less likely) will change antibiotics to vanco/merrem get nasal swab for MRSA check procalcitonin 08/31 - about the same, wbc is back to normal 09/01 - overall improved but not back to baseline according to the daughter will check ammonia level in a.m. 09/02 - ammonia level is ok still not waking up for me but is spontaneously moving RUE and resisting opening her R eye 09/03 - repeat head CT did not show any acute changes daughter reports that pt is more active when up in a chair or has her own clothes on at home 09/04 - no change 09/05 - a bit more interactive when relatives present according to the daughter 09/06 - more awake and seems to track with eyes today 2) increase in LFT's abd u/s is pending due to CHF? check BNP and lipase in a.m. 08/31 - abd u/s was ok and LFT's are improving BNP was elevated 09/02 - overall improved but still elevated merrem should cover biliary bacterial organisms as enterococcus is not common for these infections 09/03 - no change 09/04 - improved 3) fever and mild leukocytosis possible RML infiltrate and probable UTI CT chest is pending start continue vanco and start merrem, to cover for HCAP and aspiration and resistant organisms in urein check procalcitonin, check nasal for MRSA 09/04 - pt had foul smelling loose stool yesterday, c.dif is pending wbc for today is pending continue with merrem/doxy 09/05 - stool had c.dif continue with merrem but d/c doxy since elevated wbc likely due to c.dif procalcitonin was elevated so continue with merrem thru 09/06 09/06 - continue with po vanco thru 09/13 d/c merrem after today's doses 4) possible pneumonia, nurse reports no coughing CT chest is pending check BNP vanco and merrem will cover aspiration and HCAP. 08/31 - CT chest has MARY ANNE patchy infiltrate, not an area of usual aspiration will continue treatment for possible HCAP if MRSA screen is negative will d/c vanco 09/01 - neg for MRSA, d/c vanco continue with merrem 09/02 - no change, await procalcitonin 09/03 - WBC still mildly elevated will add doxycycline to cover atypicals and MRSA 09/04 - stable, on merrem/doxy 09/05 continue merrem thru 09/06 d/c doxycycline 09/06 d/c iv antibiotics after today's doses she will only be on po vanco then 5) pyuria, probable UTI urine cx has GNR vanco/merrem will cover resistant organisms 08/31 - e.coli in urine is very sensitive, continue with merrem 6) decrease in platelets 09/01 - d/c vanco 09/02 - improved platelets today 09/03 - resolved 7) c.dif 09/05 - less stools prior to start iv flagyl d/c iv flagyl and change to po vanco (via PEG) for a 10 day course 09/06 - continue with po vanco thru 09/13 Problems: Consultation Date/Type/Reason Admit Date/Time Aug 29, 2016 at 12:06 Initial Consult Date 08/30/16 Type of Consultation: ID Referring Provider: JENISE GERMAN MD 24 HR Interval Summary Free Text/Dictation pt keeps eyes open and seems to track she has some vocalization without actual words moves her LUE more spontaneously still some diarrhea no V daughter reports she still has some phlegm Exam/Review of Systems Vital Signs Vitals Vital Signs Date Time Temp Pulse Resp B/P Pulse Ox O2 Delivery O2 Flow Rate FiO2 09/05/16 20:00 Nasal Cannula 2.0 09/05/16 19:30 98.4 99 20 133/55 94 09/05/16 17:03 21 Intake and Output 09/05/16 09/05/16 09/06/16 15:00 23:00 07:00 Intake Total 260 ml 750 ml 600 ml Balance 260 ml 750 ml 600 ml Exam Constitutional: alert Head: normocephalic Eyes: nl sclera Respiratory: clear to auscultation Cardiovascular: regular rate and rhythm Gastrointestinal: non-tender, soft Results Result Diagram: 09/06/16 0511 09/06/16 0511 Results 24 hrs Laboratory Tests Test 09/06/16 05:11 White Blood Count 10.6 Red Blood Count 4.34 Hemoglobin 12.3 Hematocrit 37.9 Mean Corpuscular Volume 87.3 Mean Corpuscular Hemoglobin 28.3 L Mean Corpuscular Hemoglobin Concent 32.5 Red Cell Distribution Width 15.6 H Platelet Count 226 Mean Platelet Volume 10.9 H Neutrophils % 82.0 H Lymphocytes % 9.4 L Monocytes % 5.1 Eosinophils % 0.8 Basophils % 0.3 Nucleated Red Blood Cells % 0.0 Neutrophils # 8.7 H Lymphocytes # 1.0 Monocytes # 0.5 Eosinophils # 0.1 Basophils # 0.0 Nucleated Red Blood Cells # 0.0 Sodium Level 132 L Potassium Level 4.6 Chloride Level 101 Carbon Dioxide Level 25 Anion Gap 11 Blood Urea Nitrogen 24 H Creatinine 0.46 Glucose Level 116 Calcium Level 9.1 Phosphorus Level 2.5 Magnesium Level 2.1 Total Bilirubin 0.4 Direct Bilirubin 0.00 Indirect Bilirubin 0.4 Aspartate Amino Transf (AST/SGOT) 63 H Alanine Aminotransferase (ALT/SGPT) 59 Alkaline Phosphatase 203 H Total Protein 5.4 L Albumin 2.1 L Globulin 3.30 H Albumin/Globulin Ratio 0.63 Medications Medications Current Medications Ondansetron HCl (Zofran Inj) 4 mg Q6H PRN IV NAUSEA AND/OR VOMITING; Start at 15:00 Acetaminophen (Tylenol Liquid) 650 mg Q6H PRN GTB PAIN LEVEL 1-3 OR FEVER Last administered on 09/04/16 21:48; Admin Dose 650 MG; Start 08/30/16 at 06:00 Digoxin (Digoxin) 0.125 mg DAILY@13 GTB Last administered on 09/05/16 12:23; Admin Dose 0.125 MG; Start 08/30/16 at 13:00 Magnesium Hydroxide (Milk Of Mag) 30 ml Q24H PRN GTB CONSTIPATION; Start at 19:30 Lansoprazole (Prevacid) 30 mg DAILY@06 GTB Last administered on 09/06/16 05:43 ; Admin Dose 30 MG; Start 08/30/16 at 07:00 Atorvastatin Calcium (Lipitor) 40 mg HS GTB Last administered on 09/05/16 21:53 ; Admin Dose 40 MG; Start 08/30/16 at 21:00 Enoxaparin Sodium (Lovenox) 40 mg DAILY SC Last administered on 09/05/16 09:50 ; Admin Dose 40 MG; Start 08/31/16 at 09:00 Metoprolol Tartrate 12.5 mg 12.5 mg BID GTB Last administered on 09/05/16 21:54 ; Admin Dose 12.5 MG; Start 08/31/16 at 09:30 Meropenem (Merrem 1 Gm/100 ml (Pmx)) 100 ml @ 200 mls/hr Q8 IVPB Last administered on 09/06/16 05:43; Admin Dose 200 MLS/HR; Start 09/02/16 at 08:00 Aspirin (Aspirin) 81 mg DAILY NGT Last administered on 09/05/16 09:59; Admin Dose 81 MG; Start 09/02/16 at 09:00 Valsartan (Diovan) 80 mg DAILY GTB Last administered on 09/05/16 09:58; Admin Dose 80 MG; Start 09/02/16 at 09:00 Furosemide (Lasix) 20 mg DAILY@06 GTB Last administered on 09/06/16 05:43; Admin Dose 20 MG; Start 09/02/16 at 09:00 Doxycycline Hyclate (Vibramycin) 100 mg BID PEG Last administered on 09/05/16 21:53; Admin Dose 100 MG; Start 09/03/16 at 09:00 Vancomycin HCl (Vancomycin Oral Syringe) 125 mg Q6 PEG Last administered on 09/06 05:43; Admin Dose 125 MG; Start 09/05/16 at 12:00 BRAN MIRANDA MD September 06, 2016 07:58
[2016-09-06] MEDS: LEVALBUTEROL (NEB) 0.31 MG/3 ML AMP HHN SCH ×3 (09:00→17:00)
[2016-09-06] MEDS: ASPIRIN 81 MG TAB NGT SCH (09:11)
[2016-09-06] MEDS: ACETAMINOPHEN 650MG/20.3ML CUP GTB PRN (09:12)
[2016-09-06] MEDS: VALSARTAN 80 MG TAB GTB SCH (09:12)
[2016-09-06] MEDS: METOPROLOL 25 MG TAB GTB SCH ×2 (09:12→21:26)
[2016-09-06] MEDS: IPRATROPIUM (NEB) 0.5 MG/2.5 ML AMP HHN SCH ×3 (09:22→16:47)
[2016-09-06] MEDS: ENOXAPARIN 40 MG/0.4 ML SYG SC SCH (09:22)
[2016-09-06] MEDS: DIGOXIN 0.125 MG TAB GTB SCH (12:33)
[2016-09-06 19:28] VITALS: BP 146/63; RESP 18
[2016-09-06] MEDS: ATORVASTATIN 40 MG TAB GTB SCH (21:26)
[2016-09-07] MEDS: VANCOMYCIN HCL 250 MG/5ML POSYG PEG SCH ×5 (00:02→23:36)
[2016-09-07 05:43] LABS: ADD SCAN DIFF NO
[2016-09-07] MEDS: LANSOPRAZOLE 30 MG CAP GTB SCH (06:19)
[2016-09-07] MEDS: FUROSEMIDE 20 MG TAB GTB SCH (06:19)
[2016-09-07] MEDS: LEVOTHYROXINE 125 MCG TAB GTB SCH (06:20)
[2016-09-07 06:29] LABS: CREATININE 0.46 mg/dl (0.44-1.00); POTASSIUM 4.7 mmol/L (3.5-5.1)
[2016-09-07 06:44] LABS: BASOPHILS % 0.3 % (0.0-2.0); EOSINOPHILS # 0.1 10^3/ul (0.0-0.5); EOSINOPHILS % 0.8 % (0.0-7.0); HEMATOCRIT 43.7 % (37.0-47.0); LYMPHOCYTES # 1.5 10^3/ul (0.8-2.9); MEAN CORPUSCULAR HEMOGLOBIN 28.2 pg (29.0-33.0); MEAN CORPUSCULAR VOLUME 87.9 fl (82.0-101.0); MONOCYTE # 0.6 10^3/ul (0.3-0.9); MONOCYTES % 6.4 % (0.0-11.0); NEUTROPHIL # 7.6 10^3/ul (1.6-7.5); NEUTROPHILS % 75.9 % (39.0-77.0); PLATELET COUNT 225 10^3/UL (140-415); RED BLOOD COUNT 4.97 10^6/ul (4.20-5.40); RED CELL DISTRIBUTION WIDTH 15.9 % (11.5-14.5)
--- NOTE | 2016-09-07 07:47 | PN ---
Date/Time of Note Date/Time of Note DATE: 09/07/16 TIME: 07:42 Assessment/Plan VTE Prophylaxis VTE Prophylaxis Intervention: LMWH Lines/Catheters IV Catheter Type (from Nrs): Peripheral IV Urinary Cath still in place: No Assessment/Plan Assessment/Plan 1. Cognition has improved. 2. Pneumonia resolving, abx per id 3. C diff being treated, will repeat 4. CHF is resolving, edema in part sec to low albumin 5. Chronic Atrial fib 6. Case management to see 7. Hyponatremia resolving Subjective 24 Hr Interval Summary Subjective hx not possible: other (pt is comfortable, rev with daughter, she is not coughing and not tachypneic) Exam/Review of Systems Vital Signs Vitals Vital Signs Date Time Temp Pulse Resp B/P Pulse Ox O2 Delivery O2 Flow Rate FiO2 09/06/16 19:28 98.1 76 18 146/63 99 09/06/16 16:51 21 09/05/16 20:00 Nasal Cannula 2.0 Intake and Output 09/06/16 09/06/16 09/07/16 15:00 23:00 07:00 Intake Total 860 ml 600 ml Balance 860 ml 600 ml Exam Neck: No jvd Respiratory: clear to auscultation, diminished breath sounds Cardiovascular: irregular rhythm Gastrointestinal: soft Extremities: No edema (of legs, 1+ sacral edema) Neurological: other (she is alert, smiled when I entered, wont follow commands , left hemipareisis) Results Result Diagram: 09/07/16 0521 09/07/16 0521 Results 24 hrs Laboratory Tests Test 09/07/16 05:21 White Blood Count 10.0 Red Blood Count 4.97 Hemoglobin 14.0 Hematocrit 43.7 Mean Corpuscular Volume 87.9 Mean Corpuscular Hemoglobin 28.2 L Mean Corpuscular Hemoglobin Concent 32.0 Red Cell Distribution Width 15.9 H Platelet Count 225 Mean Platelet Volume 11.0 H Neutrophils % 75.9 Lymphocytes % 15.0 Monocytes % 6.4 Eosinophils % 0.8 Basophils % 0.3 Nucleated Red Blood Cells % 0.0 Neutrophils # 7.6 H Lymphocytes # 1.5 Monocytes # 0.6 Eosinophils # 0.1 Basophils # 0.0 Nucleated Red Blood Cells # 0.0 Sodium Level 134 L Potassium Level 4.7 Chloride Level 103 Carbon Dioxide Level Pending Anion Gap Pending Blood Urea Nitrogen Pending Creatinine 0.46 Glucose Level Pending Calcium Level Pending Medications Medications Current Medications Ondansetron HCl (Zofran Inj) 4 mg Q6H PRN IV NAUSEA AND/OR VOMITING; Start at 15:00 Acetaminophen (Tylenol Liquid) 650 mg Q6H PRN GTB PAIN LEVEL 1-3 OR FEVER Last administered on 09/06/16 09:12; Admin Dose 650 MG; Start 08/30/16 at 06:00 Digoxin (Digoxin) 0.125 mg DAILY@13 GTB Last administered on 09/06/16 12:33; Admin Dose 0.125 MG; Start 08/30/16 at 13:00 Magnesium Hydroxide (Milk Of Mag) 30 ml Q24H PRN GTB CONSTIPATION; Start at 19:30 Lansoprazole (Prevacid) 30 mg DAILY@06 GTB Last administered on 09/07/16 06:19 ; Admin Dose 30 MG; Start 08/30/16 at 07:00 Atorvastatin Calcium (Lipitor) 40 mg HS GTB Last administered on 09/06/16 21:26 ; Admin Dose 40 MG; Start 08/30/16 at 21:00 Enoxaparin Sodium (Lovenox) 40 mg DAILY SC Last administered on 09/06/16 09:22 ; Admin Dose 40 MG; Start 08/31/16 at 09:00 Metoprolol Tartrate (Lopressor) 12.5 mg BID GTB Last administered on 09/06/16 21:26; Admin Dose 12.5 MG; Start 08/31/16 at 09:30 Aspirin (Aspirin) 81 mg DAILY NGT Last administered on 09/06/16 09:11; Admin Dose 81 MG; Start 09/02/16 at 09:00 Valsartan (Diovan) 80 mg DAILY GTB Last administered on 09/06/16 09:12; Admin Dose 80 MG; Start 09/02/16 at 09:00 Furosemide (Lasix) 20 mg DAILY@06 GTB Last administered on 09/07/16 06:19; Admin Dose 20 MG; Start 09/02/16 at 09:00 Vancomycin HCl (Vancomycin Oral Syringe) 125 mg Q6 PEG Last administered on 09/07 06:19; Admin Dose 125 MG; Start 09/05/16 at 12:00 CHANG BECERRA MD September 07, 2016 07:47
[2016-09-07 08:22] VITALS: BP 131/95; RESP 23
[2016-09-07] MEDS: METOPROLOL 25 MG TAB GTB SCH ×2 (08:34→20:44)
[2016-09-07] MEDS: ASPIRIN 81 MG TAB NGT SCH (08:34)
[2016-09-07] MEDS: VALSARTAN 80 MG TAB GTB SCH (08:34)
[2016-09-07] MEDS: ENOXAPARIN 40 MG/0.4 ML SYG SC SCH (08:38)
[2016-09-07] MEDS: IPRATROPIUM (NEB) 0.5 MG/2.5 ML AMP HHN SCH ×3 (08:59→17:21)
[2016-09-07] MEDS: LEVALBUTEROL (NEB) 0.31 MG/3 ML AMP HHN SCH ×3 (08:59→17:21)
[2016-09-07 09:32] LABS: CALCIUM 9.7 mg/dl (8.4-10.2)
--- NOTE | 2016-09-07 12:03 | RADRPT ---
PROCEDURE: XR Chest 1 view. CLINICAL INDICATION: Shortness of breath. TECHNIQUE: AP views of the chest were obtained. COMPARISON: September 02, 2016 FINDINGS: The heart is large. Calcified atherosclerosis is noted in the aorta. 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 Central pulmonary vascular congestion and interstiti al prominence in both lungs is unchanged. Patchy perihilar infiltrates throughout the right lung an d small right pleural effusion are stable. Retrocardiac opacity is observed. Osseous structures are intact. IMPRESSION: Cardiomegaly with calcified atherosclerosis in the aorta. Stable central pulmonary vascular congestion and interstitial prominence in both lungs. Stable perihilar infiltrates throughout the right lung and small right pleural effusion. Retrocardiac opacity that may reflect left lower lobe atelectasis or infiltrate combined with small pleural effusion. RPTAT: AA .Elio Ko MD, Date Time Electronically viewed and signed by .Elio Ko MD, on 09/07/2016 12:03 .P/
[2016-09-07] MEDS: DIGOXIN 0.125 MG TAB GTB SCH (12:16)
[2016-09-07 20:26] VITALS: BP 131/63; RESP 16
[2016-09-07] MEDS: ATORVASTATIN 40 MG TAB GTB SCH (20:43)
[2016-09-08] MEDS: VANCOMYCIN HCL 250 MG/5ML POSYG PEG SCH ×4 (05:44→23:36)
[2016-09-08] MEDS: LANSOPRAZOLE 30 MG CAP GTB SCH (05:44)
[2016-09-08] MEDS: FUROSEMIDE 20 MG TAB GTB SCH (05:44)
[2016-09-08 06:16] LABS: ADD SCAN DIFF NO
[2016-09-08] MEDS: LEVOTHYROXINE 125 MCG TAB GTB SCH (06:26)
[2016-09-08 06:28] LABS: BASOPHILS % 0.5 % (0.0-2.0); EOSINOPHILS # 0.1 10^3/ul (0.0-0.5); EOSINOPHILS % 1.3 % (0.0-7.0); HEMATOCRIT 40.5 % (37.0-47.0); HEMOGLOBIN 12.9 g/dl (12.0-16.0); LYMPHOCYTES # 1.7 10^3/ul (0.8-2.9); LYMPHOCYTES % 21.9 % (15.0-51.0); MEAN CORPUSCULAR HEMOGLOBIN 28.7 pg (29.0-33.0); MEAN CORPUSCULAR HGB CONC 31.9 g/dl (32.0-37.0); MEAN CORPUSCULAR VOLUME 90.2 fl (82.0-101.0); MEAN PLATELET VOLUME 10.9 fl (7.4-10.4); MONOCYTE # 0.6 10^3/ul (0.3-0.9); MONOCYTES % 7.6 % (0.0-11.0); NEUTROPHIL # 5.2 10^3/ul (1.6-7.5); NEUTROPHILS % 67.7 % (39.0-77.0); PLATELET COUNT 233 10^3/UL (140-415); RED BLOOD COUNT 4.49 10^6/ul (4.20-5.40); RED CELL DISTRIBUTION WIDTH 15.8 % (11.5-14.5); WHITE BLOOD COUNT 7.6 10^3/ul (4.8-10.8)
[2016-09-08 06:51] LABS: POTASSIUM 5.1 mmol/L (3.5-5.1)
[2016-09-08 06:53] LABS: CREATININE 0.45 mg/dl (0.44-1.00)
[2016-09-08 06:55] LABS: CALCIUM 9.5 mg/dl (8.4-10.2)
[2016-09-08] MEDS: IPRATROPIUM (NEB) 0.5 MG/2.5 ML AMP HHN SCH ×3 (08:21→16:38)
[2016-09-08] MEDS: LEVALBUTEROL (NEB) 0.31 MG/3 ML AMP HHN SCH ×3 (08:21→16:39)
[2016-09-08] MEDS: ENOXAPARIN 40 MG/0.4 ML SYG SC SCH (09:43)
[2016-09-08] MEDS: ASPIRIN 81 MG TAB NGT SCH (09:43)
[2016-09-08] MEDS: METOPROLOL 25 MG TAB GTB SCH ×2 (09:44→21:02)
[2016-09-08] MEDS: VALSARTAN 80 MG TAB GTB SCH (09:44)
[2016-09-08 10:24] VITALS: BP 132/64; PULSE 76; RESP 18
--- NOTE | 2016-09-08 11:08 | CONS ---
Date/Time of Note Date/Time of Note DATE: 09/08/16 TIME: 11:05 Assessment/Plan Assessment/Plan Chief Complaint/Hosp Course 1) AMS - unclear if this is normal variation or sign of infection WBC was elevated and slight fever possible infectious sources would include urine, lung and liver (less likely) will change antibiotics to vanco/merrem get nasal swab for MRSA check procalcitonin 08/31 - about the same, wbc is back to normal 09/01 - overall improved but not back to baseline according to the daughter will check ammonia level in a.m. 09/02 - ammonia level is ok still not waking up for me but is spontaneously moving RUE and resisting opening her R eye 09/03 - repeat head CT did not show any acute changes daughter reports that pt is more active when up in a chair or has her own clothes on at home 09/04 - no change 09/05 - a bit more interactive when relatives present according to the daughter 09/06 - more awake and seems to track with eyes today 09/08 pt participating with PT and is able to sit on side of bed for a few seconds only 2) increase in LFT's abd u/s is pending due to CHF? check BNP and lipase in a.m. 08/31 - abd u/s was ok and LFT's are improving BNP was elevated 09/02 - overall improved but still elevated merrem should cover biliary bacterial organisms as enterococcus is not common for these infections 09/03 - no change 09/04 - improved 3) fever and mild leukocytosis possible RML infiltrate and probable UTI CT chest is pending start continue vanco and start merrem, to cover for HCAP and aspiration and resistant organisms in urein check procalcitonin, check nasal for MRSA 09/04 - pt had foul smelling loose stool yesterday, c.dif is pending wbc for today is pending continue with merrem/doxy 09/05 - stool had c.dif continue with merrem but d/c doxy since elevated wbc likely due to c.dif procalcitonin was elevated so continue with merrem thru 09/06 09/06 - continue with po vanco thru 09/13 d/c merrem after today's doses 09/08 - only on po vanco and normal wbc 4) possible pneumonia, nurse reports no coughing CT chest is pending check BNP vanco and merrem will cover aspiration and HCAP. 08/31 - CT chest has MARY ANNE patchy infiltrate, not an area of usual aspiration will continue treatment for possible HCAP if MRSA screen is negative will d/c vanco 09/01 - neg for MRSA, d/c vanco continue with merrem 09/02 - no change, await procalcitonin 09/03 - WBC still mildly elevated will add doxycycline to cover atypicals and MRSA 09/04 - stable, on merrem/doxy 09/05 continue merrem thru 09/06 d/c doxycycline 09/06 d/c iv antibiotics after today's doses she will only be on po vanco then 5) pyuria, probable UTI urine cx has GNR vanco/merrem will cover resistant organisms 08/31 - e.coli in urine is very sensitive, continue with merrem 6) decrease in platelets 09/01 - d/c vanco 09/02 - improved platelets today 09/03 - resolved 7) c.dif 09/05 - less stools prior to start iv flagyl d/c iv flagyl and change to po vanco (via PEG) for a 10 day course 09/06 - continue with po vanco thru 09/13 09/08 - doing well Problems: Consultation Date/Type/Reason Admit Date/Time Aug 29, 2016 at 12:06 Initial Consult Date 08/30/16 Type of Consultation: ID Referring Provider: JENISE GERMAN MD 24 HR Interval Summary Free Text/Dictation spoke to daughter who states patient is more interactive no V and diarrhea is much improved no coughing Exam/Review of Systems Vital Signs Vitals Vital Signs Date Time Temp Pulse Resp B/P Pulse Ox O2 Delivery O2 Flow Rate FiO2 09/08/16 10:24 98.2 76 18 132/64 95 09/08/16 08:21 21 09/05/16 20:00 Nasal Cannula 2.0 Intake and Output 09/07/16 09/07/16 09/08/16 15:00 23:00 07:00 Intake Total 780 ml 800 ml Balance 780 ml 800 ml Exam Constitutional: non-verbal ENMT: mucosa pink and moist Respiratory: clear to auscultation Cardiovascular: regular rate and rhythm Gastrointestinal: non-tender, soft Results Result Diagram: 09/08/16 0557 09/08/16 0557 Results 24 hrs Laboratory Tests Test 09/08/16 05:57 White Blood Count 7.6 # Red Blood Count 4.49 Hemoglobin 12.9 Hematocrit 40.5 Mean Corpuscular Volume 90.2 Mean Corpuscular Hemoglobin 28.7 L Mean Corpuscular Hemoglobin Concent 31.9 L Red Cell Distribution Width 15.8 H Platelet Count 233 Mean Platelet Volume 10.9 H Neutrophils % 67.7 Lymphocytes % 21.9 Monocytes % 7.6 Eosinophils % 1.3 Basophils % 0.5 Nucleated Red Blood Cells % 0.0 Neutrophils # 5.2 Lymphocytes # 1.7 Monocytes # 0.6 Eosinophils # 0.1 Basophils # 0.0 Nucleated Red Blood Cells # 0.0 Sodium Level 135 Potassium Level 5.1 Chloride Level 101 Carbon Dioxide Level 26 Anion Gap 13 Blood Urea Nitrogen 27 H Creatinine 0.45 Glucose Level 111 Calcium Level 9.5 Thyroid Stimulating Hormone (TSH) 2.780 Medications Medications Current Medications Ondansetron HCl (Zofran Inj) 4 mg Q6H PRN IV NAUSEA AND/OR VOMITING; Start at 15:00 Acetaminophen (Tylenol Liquid) 650 mg Q6H PRN GTB PAIN LEVEL 1-3 OR FEVER Last administered on 09/06/16 09:12; Admin Dose 650 MG; Start 08/30/16 at 06:00 Digoxin (Digoxin) 0.125 mg DAILY@13 GTB Last administered on 09/07/16 12:16; Admin Dose 0.125 MG; Start 08/30/16 at 13:00 Magnesium Hydroxide (Milk Of Mag) 30 ml Q24H PRN GTB CONSTIPATION; Start at 19:30 Lansoprazole (Prevacid) 30 mg DAILY@06 GTB Last administered on 09/08/16 05:44 ; Admin Dose 30 MG; Start 08/30/16 at 07:00 Atorvastatin Calcium (Lipitor) 40 mg HS GTB Last administered on 09/07/16 20:43 ; Admin Dose 40 MG; Start 08/30/16 at 21:00 Enoxaparin Sodium (Lovenox) 40 mg DAILY SC Last administered on 09/08/16 09:43 ; Admin Dose 40 MG; Start 08/31/16 at 09:00 Metoprolol Tartrate (Lopressor) 12.5 mg BID GTB Last administered on 09/08/16 09:44; Admin Dose 12.5 MG; Start 08/31/16 at 09:30 Aspirin (Aspirin) 81 mg DAILY NGT Last administered on 09/08/16 09:43; Admin Dose 81 MG; Start 09/02/16 at 09:00 Valsartan (Diovan) 80 mg DAILY GTB Last administered on 09/08/16 09:44; Admin Dose 80 MG; Start 09/02/16 at 09:00 Furosemide (Lasix) 20 mg DAILY@06 GTB Last administered on 09/08/16 05:44; Admin Dose 20 MG; Start 09/02/16 at 09:00 Vancomycin HCl (Vancomycin Oral Syringe) 125 mg Q6 PEG Last administered on 09/08 05:44; Admin Dose 125 MG; Start 09/05/16 at 12:00 BRAN MIRANDA MD September 08, 2016 11:08
--- NOTE | 2016-09-08 11:30 | PN ---
Date/Time of Note Date/Time of Note DATE: 09/08/16 TIME: 11:27 Assessment/Plan VTE Prophylaxis VTE Prophylaxis Intervention: LMWH Lines/Catheters IV Catheter Type (from [facility]): Saline Lock Urinary Cath still in place: No Assessment/Plan Assessment/Plan 1. Mental status is improved. 2. Pneumonia resolved 3. C diff being treated, await repeat c diff 4. Mild vol overload, lasix inc 5. ID note rev 6. Await case management follow up Subjective 24 Hr Interval Summary Subjective hx not possible: other (eyes are open and ? smiled when she saw me) Exam/Review of Systems Vital Signs Vitals Vital Signs Date Time Temp Pulse Resp B/P Pulse Ox O2 Delivery O2 Flow Rate FiO2 09/08/16 10:24 98.2 76 18 132/64 95 09/08/16 08:21 21 09/05/16 20:00 Nasal Cannula 2.0 Intake and Output 09/07/16 09/07/16 09/08/16 15:00 23:00 07:00 Intake Total 780 ml 800 ml Balance 780 ml 800 ml Exam Neck: No jvd Respiratory: clear to auscultation, No diminished breath sounds Cardiovascular: regular rate and rhythm Gastrointestinal: soft Extremities: edema (2+ sacral edema) Neurological: other (alert, does not follow simple commands) Results Result Diagram: 09/08/16 0557 09/08/16 0557 Results 24 hrs Laboratory Tests Test 09/08/16 05:57 White Blood Count 7.6 # Red Blood Count 4.49 Hemoglobin 12.9 Hematocrit 40.5 Mean Corpuscular Volume 90.2 Mean Corpuscular Hemoglobin 28.7 L Mean Corpuscular Hemoglobin Concent 31.9 L Red Cell Distribution Width 15.8 H Platelet Count 233 Mean Platelet Volume 10.9 H Neutrophils % 67.7 Lymphocytes % 21.9 Monocytes % 7.6 Eosinophils % 1.3 Basophils % 0.5 Nucleated Red Blood Cells % 0.0 Neutrophils # 5.2 Lymphocytes # 1.7 Monocytes # 0.6 Eosinophils # 0.1 Basophils # 0.0 Nucleated Red Blood Cells # 0.0 Sodium Level 135 Potassium Level 5.1 Chloride Level 101 Carbon Dioxide Level 26 Anion Gap 13 Blood Urea Nitrogen 27 H Creatinine 0.45 Glucose Level 111 Calcium Level 9.5 Thyroid Stimulating Hormone (TSH) 2.780 Medications Medications Current Medications Ondansetron HCl (Zofran Inj) 4 mg Q6H PRN IV NAUSEA AND/OR VOMITING; Start at 15:00 Acetaminophen (Tylenol Liquid) 650 mg Q6H PRN GTB PAIN LEVEL 1-3 OR FEVER Last administered on 09/06/16 09:12; Admin Dose 650 MG; Start 08/30/16 at 06:00 Digoxin (Digoxin) 0.125 mg DAILY@13 GTB Last administered on 09/07/16 12:16; Admin Dose 0.125 MG; Start 08/30/16 at 13:00 Magnesium Hydroxide (Milk Of Mag) 30 ml Q24H PRN GTB CONSTIPATION; Start at 19:30 Lansoprazole (Prevacid) 30 mg DAILY@06 GTB Last administered on 09/08/16 05:44 ; Admin Dose 30 MG; Start 08/30/16 at 07:00 Atorvastatin Calcium (Lipitor) 40 mg HS GTB Last administered on 09/07/16 20:43 ; Admin Dose 40 MG; Start 08/30/16 at 21:00 Enoxaparin Sodium (Lovenox) 40 mg DAILY SC Last administered on 09/08/16 09:43 ; Admin Dose 40 MG; Start 08/31/16 at 09:00 Metoprolol Tartrate (Lopressor) 12.5 mg BID GTB Last administered on 09/08/16 09:44; Admin Dose 12.5 MG; Start 08/31/16 at 09:30 Aspirin (Aspirin) 81 mg DAILY NGT Last administered on 09/08/16 09:43; Admin Dose 81 MG; Start 09/02/16 at 09:00 Valsartan (Diovan) 80 mg DAILY GTB Last administered on 09/08/16 09:44; Admin Dose 80 MG; Start 09/02/16 at 09:00 Furosemide (Lasix) 20 mg DAILY@06 GTB Last administered on 09/08/16 05:44; Admin Dose 20 MG; Start 09/02/16 at 09:00 Vancomycin HCl (Vancomycin Oral Syringe) 125 mg Q6 PEG Last administered on 09/08 05:44; Admin Dose 125 MG; Start 09/05/16 at 12:00 CHANG BECERRA MD September 08, 2016 11:30
[2016-09-08] MEDS: DIGOXIN 0.125 MG TAB GTB SCH (13:43)
[2016-09-08] MEDS: ATORVASTATIN 40 MG TAB GTB SCH (21:01)
[2016-09-08 21:40] VITALS: BP 133/60; RESP 18
[2016-09-09] MEDS: LANSOPRAZOLE 30 MG CAP GTB SCH (05:37)
[2016-09-09] MEDS: VANCOMYCIN HCL 250 MG/5ML POSYG PEG SCH ×4 (05:37→23:49)
[2016-09-09] MEDS: FUROSEMIDE 40 MG/4 ML CUP GTB SCH (06:27)
[2016-09-09] MEDS: LEVOTHYROXINE 125 MCG TAB GTB SCH (06:27)
[2016-09-09 06:32] LABS: ADD SCAN DIFF NO
[2016-09-09 06:40] LABS: BASOPHILS % 0.6 % (0.0-2.0); EOSINOPHILS # 0.1 10^3/ul (0.0-0.5); EOSINOPHILS % 1.8 % (0.0-7.0); HEMATOCRIT 37.7 % (37.0-47.0); HEMOGLOBIN 12.4 g/dl (12.0-16.0); LYMPHOCYTES # 1.5 10^3/ul (0.8-2.9); LYMPHOCYTES % 20.2 % (15.0-51.0); MEAN CORPUSCULAR HGB CONC 32.9 g/dl (32.0-37.0); MEAN CORPUSCULAR VOLUME 88.1 fl (82.0-101.0); MEAN PLATELET VOLUME 10.7 fl (7.4-10.4); MONOCYTE # 0.5 10^3/ul (0.3-0.9); MONOCYTES % 6.9 % (0.0-11.0); NEUTROPHIL # 5.1 10^3/ul (1.6-7.5); NEUTROPHILS % 69.7 % (39.0-77.0); PLATELET COUNT 317 10^3/UL (140-415); RED BLOOD COUNT 4.28 10^6/ul (4.20-5.40); RED CELL DISTRIBUTION WIDTH 15.6 % (11.5-14.5); WHITE BLOOD COUNT 7.2 10^3/ul (4.8-10.8)
[2016-09-09 07:34] LABS: ALBUMIN 2.6 g/dl (3.3-4.9); ALBUMIN/GLOBULIN RATIO 0.7; BILIRUBIN,INDIRECT 0.5 mg/dl (0-1.1); BILIRUBIN,TOTAL 0.5 mg/dl (0.2-1.3); CALCIUM 9.5 mg/dl (8.4-10.2); CREATININE 0.41 mg/dl (0.44-1.00); POTASSIUM 5.2 mmol/L (3.5-5.1); TOTAL PROTEIN 6.3 g/dl (6.1-8.1)
--- NOTE | 2016-09-09 07:52 | PN ---
Date/Time of Note Date/Time of Note DATE: 09/09/16 TIME: 07:50 Assessment/Plan VTE Prophylaxis VTE Prophylaxis Intervention: LMWH Lines/Catheters IV [facility] Type (from [facility]): Saline Lock Urinary Cath still in place: No Assessment/Plan Assessment/Plan 1. Mental status is improved. 2. Mild hyperkalemia, kayexelate given 3. Liver tests remain abnl, will hold lipitor and rev with gi 4. C diff being treated, await repeat C diff. 5. Pneumonia resolved. 6. Chronic atrial fib Subjective 24 Hr Interval Summary Subjective hx not possible: other (alert but does not respond to questions) Exam/Review of Systems Vital Signs Vitals Vital Signs Date Time Temp Pulse Resp B/P Pulse Ox O2 Delivery O2 Flow Rate FiO2 09/08/16 21:40 98.2 72 18 133/60 97 09/08/16 16:43 21 09/05/16 20:00 Nasal Cannula 2.0 Intake and Output 09/08/16 09/08/16 09/09/16 15:00 23:00 07:00 Intake Total 770 ml Balance 770 ml Exam Neck: No jvd Respiratory: diminished breath sounds Cardiovascular: regular rate and rhythm Gastrointestinal: soft Extremities: edema (1+ sacral edema) Neurological: other (left hemipareisis, alert, smiling, acknowdged me with a smile) Results Result Diagram: 09/09/16 0510 09/09/16 0510 Results 24 hrs Laboratory Tests Test 09/09/16 05:10 White Blood Count 7.2 Red Blood Count 4.28 Hemoglobin 12.4 Hematocrit 37.7 Mean Corpuscular Volume 88.1 Mean Corpuscular Hemoglobin 29.0 Mean Corpuscular Hemoglobin Concent 32.9 Red Cell Distribution Width 15.6 H Platelet Count 317 # Mean Platelet Volume 10.7 H Neutrophils % 69.7 Lymphocytes % 20.2 Monocytes % 6.9 Eosinophils % 1.8 Basophils % 0.6 Nucleated Red Blood Cells % 0.0 Neutrophils # 5.1 Lymphocytes # 1.5 Monocytes # 0.5 Eosinophils # 0.1 Basophils # 0.0 Nucleated Red Blood Cells # 0.0 Sodium Level 131 L Potassium Level 5.2 H Chloride Level 102 Carbon Dioxide Level 24 Anion Gap 10 Blood Urea Nitrogen 23 H Creatinine 0.41 L Glucose Level 106 Calcium Level 9.5 Total Bilirubin 0.5 Direct Bilirubin 0.00 Indirect Bilirubin 0.5 Aspartate Amino Transf (AST/SGOT) 95 H Alanine Aminotransferase (ALT/SGPT) 80 H Alkaline Phosphatase 241 H Total Protein 6.3 Albumin 2.6 L Globulin 3.70 H Albumin/Globulin Ratio 0.70 Medications Medications Current Medications Ondansetron HCl (Zofran Inj) 4 mg Q6H PRN IV NAUSEA AND/OR VOMITING; Start at 15:00 Acetaminophen (Tylenol Liquid) 650 mg Q6H PRN GTB PAIN LEVEL 1-3 OR FEVER Last administered on 09/06/16 09:12; Admin Dose 650 MG; Start 08/30/16 at 06:00 Digoxin (Digoxin) 0.125 mg DAILY@13 GTB Last administered on 09/08/16 13:43; Admin Dose 0.125 MG; Start 08/30/16 at 13:00 Magnesium Hydroxide (Milk Of Mag) 30 ml Q24H PRN GTB CONSTIPATION; Start at 19:30 Lansoprazole (Prevacid) 30 mg DAILY@06 GTB Last administered on 09/09/16 05:37 ; Admin Dose 30 MG; Start 08/30/16 at 07:00 Atorvastatin Calcium (Lipitor) 40 mg HS GTB Last administered on 09/08/16 21:01 ; Admin Dose 40 MG; Start 08/30/16 at 21:00 Enoxaparin Sodium (Lovenox) 40 mg DAILY SC Last administered on 09/08/16 09:43 ; Admin Dose 40 MG; Start 08/31/16 at 09:00 Metoprolol Tartrate (Lopressor) 12.5 mg BID GTB Last administered on 09/08/16 21:02; Admin Dose 12.5 MG; Start 08/31/16 at 09:30 Aspirin (Aspirin) 81 mg DAILY NGT Last administered on 09/08/16 09:43; Admin Dose 81 MG; Start 09/02/16 at 09:00 Valsartan (Diovan) 80 mg DAILY GTB Last administered on 09/08/16 09:44; Admin Dose 80 MG; Start 09/02/16 at 09:00 Vancomycin HCl (Vancomycin Oral Syringe) 125 mg Q6 PEG Last administered on 09/09 05:37; Admin Dose 125 MG; Start 09/05/16 at 12:00 Furosemide (Lasix) 40 mg DAILY@06 GTB Last administered on 09/09/16t 06:27; Admin Dose 40 MG; Start 09/09/16 at 06:00 CHANG BECERRA MD September 09, 2016 07:52
[2016-09-09 08:00] VITALS: BP 131/58; RESP 18
[2016-09-09] MEDS ORDERED: NA POLYST SULFON 15 GM/60 ML BTL GTB ONE (08:00)
[2016-09-09] MEDS: LEVALBUTEROL (NEB) 0.31 MG/3 ML AMP HHN SCH ×3 (08:26→16:01)
[2016-09-09] MEDS: IPRATROPIUM (NEB) 0.5 MG/2.5 ML AMP HHN SCH ×3 (08:26→16:01)
--- NOTE | 2016-09-09 08:50 | CONS ---
Date/Time of Note Date/Time of Note DATE: 09/09/16 TIME: 08:48 Assessment/Plan Assessment/Plan Chief Complaint/Hosp Course 1) AMS - unclear if this is normal variation or sign of infection WBC was elevated and slight fever possible infectious sources would include urine, lung and liver (less likely) will change antibiotics to vanco/merrem get nasal swab for MRSA check procalcitonin 08/31 - about the same, wbc is back to normal 09/01 - overall improved but not back to baseline according to the daughter will check ammonia level in a.m. 09/02 - ammonia level is ok still not waking up for me but is spontaneously moving RUE and resisting opening her R eye 09/03 - repeat head CT did not show any acute changes daughter reports that pt is more active when up in a chair or has her own clothes on at home 09/04 - no change 09/05 - a bit more interactive when relatives present according to the daughter 09/06 - more awake and seems to track with eyes today 09/08 pt participating with PT and is able to sit on side of bed for a few seconds only 09/09 - pt continues to improve 2) increase in LFT's abd u/s is pending due to CHF? check BNP and lipase in a.m. 08/31 - abd u/s was ok and LFT's are improving BNP was elevated 09/02 - overall improved but still elevated merrem should cover biliary bacterial organisms as enterococcus is not common for these infections 09/03 - no change 09/04 - improved 3) fever and mild leukocytosis possible RML infiltrate and probable UTI CT chest is pending start continue vanco and start merrem, to cover for HCAP and aspiration and resistant organisms in urein check procalcitonin, check nasal for MRSA 09/04 - pt had foul smelling loose stool yesterday, c.dif is pending wbc for today is pending continue with merrem/doxy 09/05 - stool had c.dif continue with merrem but d/c doxy since elevated wbc likely due to c.dif procalcitonin was elevated so continue with merrem thru 09/06 09/06 - continue with po vanco thru 09/13 d/c merrem after today's doses 09/08 - only on po vanco and normal wbc 4) possible pneumonia, nurse reports no coughing CT chest is pending check BNP vanco and merrem will cover aspiration and HCAP. 08/31 - CT chest has MARY ANNE patchy infiltrate, not an area of usual aspiration will continue treatment for possible HCAP if MRSA screen is negative will d/c vanco 09/01 - neg for MRSA, d/c vanco continue with merrem 09/02 - no change, await procalcitonin 09/03 - WBC still mildly elevated will add doxycycline to cover atypicals and MRSA 09/04 - stable, on merrem/doxy 09/05 continue merrem thru 09/06 d/c doxycycline 09/06 d/c iv antibiotics after today's doses she will only be on po vanco then 5) pyuria, probable UTI urine cx has GNR vanco/merrem will cover resistant organisms 08/31 - e.coli in urine is very sensitive, continue with merrem 6) decrease in platelets 09/01 - d/c vanco 09/02 - improved platelets today 09/03 - resolved 7) c.dif 09/05 - less stools prior to start iv flagyl d/c iv flagyl and change to po vanco (via PEG) for a 10 day course 09/06 - continue with po vanco thru 09/13 09/08 - doing well 09/09 - stable, will sign off on case continue po vanco thru 09/13 Problems: Consultation Date/Type/Reason Admit Date/Time Aug 29, 2016 at 12:06 Initial Consult Date 08/30/16 Type of Consultation: ID Referring Provider: JENISE GERMAN MD 24 HR Interval Summary Free Text/Dictation pt had two small loose stools during the night pt is more interactive according to the daughter no V Exam/Review of Systems Vital Signs Vitals Vital Signs Date Time Temp Pulse Resp B/P Pulse Ox O2 Delivery O2 Flow Rate FiO2 09/09/16 08:27 85 20 95 21 09/08/16 21:40 98.2 133/60 09/05/16 20:00 Nasal Cannula 2.0 Intake and Output 09/08/16 09/08/16 09/09/16 15:00 23:00 07:00 Intake Total 770 ml 500 ml Balance 770 ml 500 ml Exam looks comfortable Constitutional: alert Head: normocephalic Eyes: nl sclera ENMT: mucosa pink and moist Respiratory: clear to auscultation Cardiovascular: regular rate and rhythm Gastrointestinal: non-tender, soft Results Result Diagram: 09/09/16 0510 09/09/16 0510 Results 24 hrs Laboratory Tests Test 09/09/16 05:10 White Blood Count 7.2 Red Blood Count 4.28 Hemoglobin 12.4 Hematocrit 37.7 Mean Corpuscular Volume 88.1 Mean Corpuscular Hemoglobin 29.0 Mean Corpuscular Hemoglobin Concent 32.9 Red Cell Distribution Width 15.6 H Platelet Count 317 # Mean Platelet Volume 10.7 H Neutrophils % 69.7 Lymphocytes % 20.2 Monocytes % 6.9 Eosinophils % 1.8 Basophils % 0.6 Nucleated Red Blood Cells % 0.0 Neutrophils # 5.1 Lymphocytes # 1.5 Monocytes # 0.5 Eosinophils # 0.1 Basophils # 0.0 Nucleated Red Blood Cells # 0.0 Sodium Level 131 L Potassium Level 5.2 H Chloride Level 102 Carbon Dioxide Level 24 Anion Gap 10 Blood Urea Nitrogen 23 H Creatinine 0.41 L Glucose Level 106 Calcium Level 9.5 Total Bilirubin 0.5 Direct Bilirubin 0.00 Indirect Bilirubin 0.5 Aspartate Amino Transf (AST/SGOT) 95 H Alanine Aminotransferase (ALT/SGPT) 80 H Alkaline Phosphatase 241 H Total Protein 6.3 Albumin 2.6 L Globulin 3.70 H Albumin/Globulin Ratio 0.70 Medications Medications Current Medications Ondansetron HCl (Zofran Inj) 4 mg Q6H PRN IV NAUSEA AND/OR VOMITING; Start at 15:00 Acetaminophen (Tylenol Liquid) 650 mg Q6H PRN GTB PAIN LEVEL 1-3 OR FEVER Last administered on 09/06/16 09:12; Admin Dose 650 MG; Start 08/30/16 at 06:00 Digoxin (Digoxin) 0.125 mg DAILY@13 GTB Last administered on 09/08/16 13:43; Admin Dose 0.125 MG; Start 08/30/16 at 13:00 Magnesium Hydroxide (Milk Of Mag) 30 ml Q24H PRN GTB CONSTIPATION; Start at 19:30 Lansoprazole (Prevacid) 30 mg DAILY@06 GTB Last administered on 09/09/16 05:37 ; Admin Dose 30 MG; Start 08/30/16 at 07:00 Enoxaparin Sodium (Lovenox) 40 mg DAILY SC Last administered on 09/08/16 09:43 ; Admin Dose 40 MG; Start 08/31/16 at 09:00 Metoprolol Tartrate (Lopressor) 12.5 mg BID GTB Last administered on 09/08/16 21:02; Admin Dose 12.5 MG; Start 08/31/16 at 09:30 Aspirin (Aspirin) 81 mg DAILY NGT Last administered on 09/08/16 09:43; Admin Dose 81 MG; Start 09/02/16 at 09:00 Valsartan (Diovan) 80 mg DAILY GTB Last administered on 09/08/16 09:44; Admin Dose 80 MG; Start 09/02/16 at 09:00 Vancomycin HCl (Vancomycin Oral Syringe) 125 mg Q6 PEG Last administered on 09/09 05:37; Admin Dose 125 MG; Start 09/05/16 at 12:00 Furosemide (Lasix) 40 mg DAILY@06 GTB Last administered on 09/09/16 06:27; Admin Dose 40 MG; Start 09/09/16 at 06:00 BRAN MIRANDA MD September 09, 2016 08:50
[2016-09-09] MEDS: ASPIRIN 81 MG TAB NGT SCH (09:42)
[2016-09-09] MEDS: ENOXAPARIN 40 MG/0.4 ML SYG SC SCH (09:42)
[2016-09-09] MEDS: METOPROLOL 25 MG TAB GTB SCH ×2 (09:42→21:22)
[2016-09-09] MEDS: VALSARTAN 80 MG TAB GTB SCH (09:43)
[2016-09-09] MEDS: DIGOXIN 0.125 MG TAB GTB SCH (12:42)
[2016-09-09 20:56] VITALS: BP 134/60; RESP 18
[2016-09-10 06:14] LABS: ADD SCAN DIFF NO
[2016-09-10 06:16] LABS: BASOPHILS % 0.6 % (0.0-2.0); EOSINOPHILS # 0.1 10^3/ul (0.0-0.5); HEMATOCRIT 39.6 % (37.0-47.0); HEMOGLOBIN 12.5 g/dl (12.0-16.0); LYMPHOCYTES # 1.4 10^3/ul (0.8-2.9); LYMPHOCYTES % 21.7 % (15.0-51.0); MEAN CORPUSCULAR HGB CONC 31.6 g/dl (32.0-37.0); MEAN CORPUSCULAR VOLUME 88.8 fl (82.0-101.0); MEAN PLATELET VOLUME 10.1 fl (7.4-10.4); MONOCYTE # 0.6 10^3/ul (0.3-0.9); MONOCYTES % 8.6 % (0.0-11.0); NEUTROPHIL # 4.4 10^3/ul (1.6-7.5); NEUTROPHILS % 66.3 % (39.0-77.0); PLATELET COUNT 356 10^3/UL (140-415); RED BLOOD COUNT 4.46 10^6/ul (4.20-5.40); WHITE BLOOD COUNT 6.6 10^3/ul (4.8-10.8)
[2016-09-10] MEDS: FUROSEMIDE 40 MG/4 ML CUP GTB SCH (06:26)
[2016-09-10] MEDS: LEVOTHYROXINE 125 MCG TAB GTB SCH (06:27)
[2016-09-10] MEDS: VANCOMYCIN HCL 250 MG/5ML POSYG PEG SCH ×4 (06:27→23:59)
[2016-09-10] MEDS: LANSOPRAZOLE 30 MG CAP GTB SCH (06:27)
[2016-09-10 06:38] LABS: CALCIUM 9.6 mg/dl (8.4-10.2); CREATININE 0.47 mg/dl (0.44-1.00); POTASSIUM 3.9 mmol/L (3.5-5.1)
[2016-09-10] MEDS: IPRATROPIUM (NEB) 0.5 MG/2.5 ML AMP HHN SCH ×2 (07:24→13:13)
[2016-09-10] MEDS: LEVALBUTEROL (NEB) 0.31 MG/3 ML AMP HHN SCH ×2 (07:24→13:13)
[2016-09-10 08:17] VITALS: BP 143/71; RESP 20
[2016-09-10] MEDS: ASPIRIN 81 MG TAB NGT SCH (08:31)
[2016-09-10] MEDS: METOPROLOL 25 MG TAB GTB SCH ×2 (08:32→21:10)
[2016-09-10] MEDS: VALSARTAN 80 MG TAB GTB SCH (08:33)
[2016-09-10] MEDS: ENOXAPARIN 40 MG/0.4 ML SYG SC SCH (08:41)
--- NOTE | 2016-09-10 09:26 | PN ---
Date/Time of Note Date/Time of Note DATE: 09/10/16 TIME: 09:23 Assessment/Plan VTE Prophylaxis VTE Prophylaxis Intervention: other Lines/Catheters IV C[facility] Type (from [facility] Saline Lock Urinary Cath still in place: No Assessment/Plan Assessment/Plan 1. Mental Status unchanged, stable with underlying dementia will resume aricept. 2. CHF resolved clinically 3. Pneumonia resolved 4. C diff being treated, follow up c diff is pending 5. Await case management follow up. re-transfer to [facility] Subjective 24 Hr Interval Summary Subjective hx not possible: other (comfortable, alert) Exam/Review of Systems Vital Signs Vitals Vital Signs Date Time Temp Pulse Resp B/P Pulse Ox O2 Delivery O2 Flow Rate FiO2 09/10/16 08:17 96.4 85 20 143/71 100 09/10/16 07:26 21 Intake and Output 09/09/16 09/09/16 09/10/16 15:00 23:00 07:00 Intake Total 600 ml Balance 600 ml Exam Neck: No jvd Respiratory: clear to auscultation, diminished breath sounds Cardiovascular: regular rate and rhythm Gastrointestinal: soft Extremities: edema (sacral edema 1+) Neurological: other (left hemipareisis, eyes open, does not follow commands) Results Result Diagram: 09/10/16 0520 09/10/16 0520 Results 24 hrs Laboratory Tests Test 09/10/16 05:20 White Blood Count 6.6 Red Blood Count 4.46 Hemoglobin 12.5 Hematocrit 39.6 Mean Corpuscular Volume 88.8 Mean Corpuscular Hemoglobin 28.0 L Mean Corpuscular Hemoglobin Concent 31.6 L Red Cell Distribution Width 16.0 H Platelet Count 356 Mean Platelet Volume 10.1 Neutrophils % 66.3 Lymphocytes % 21.7 Monocytes % 8.6 Eosinophils % 2.0 Basophils % 0.6 Nucleated Red Blood Cells % 0.0 Neutrophils # 4.4 Lymphocytes # 1.4 Monocytes # 0.6 Eosinophils # 0.1 Basophils # 0.0 Nucleated Red Blood Cells # 0.0 Sodium Level 137 Potassium Level 3.9 Chloride Level 101 Carbon Dioxide Level 31 Anion Gap 9 Blood Urea Nitrogen 23 H Creatinine 0.47 Glucose Level 131 Calcium Level 9.6 Medications Medications Current Medications Ondansetron HCl (Zofran Inj) 4 mg Q6H PRN IV NAUSEA AND/OR VOMITING; Start at 15:00 Acetaminophen (Tylenol Liquid) 650 mg Q6H PRN GTB PAIN LEVEL 1-3 OR FEVER Last administered on 09/06/16 09:12; Admin Dose 650 MG; Start 08/30/16 at 06:00 Digoxin (Digoxin) 0.125 mg DAILY@13 GTB Last administered on 09/09/16 12:42; Admin Dose 0.125 MG; Start 08/30/16 at 13:00 Magnesium Hydroxide (Milk Of Mag) 30 ml Q24H PRN GTB CONSTIPATION; Start at 19:30 Lansoprazole (Prevacid) 30 mg DAILY@06 GTB Last administered on 09/10/16 06:27 ; Admin Dose 30 MG; Start 08/30/16 at 07:00 Enoxaparin Sodium (Lovenox) 40 mg DAILY SC Last administered on 09/10/16 08:41 ; Admin Dose 40 MG; Start 08/31/16 at 09:00 Metoprolol Tartrate (Lopressor) 12.5 mg BID GTB Last administered on 09/10/16 08:32; Admin Dose 12.5 MG; Start 08/31/16 at 09:30 Aspirin (Aspirin) 81 mg DAILY NGT Last administered on 09/10/16 08:31; Admin Dose 81 MG; Start 09/02/16 at 09:00 Valsartan (Diovan) 80 mg DAILY GTB Last administered on 09/10/16 08:33; Admin Dose 80 MG; Start 09/02/16 at 09:00 Vancomycin HCl (Vancomycin Oral Syringe) 125 mg Q6 PEG Last administered on 09/10 06:27; Admin Dose 125 MG; Start 09/05/16 at 12:00 Furosemide (Lasix) 40 mg DAILY@06 GTB Last administered on 09/10/16 06:26; Admin Dose 40 MG; Start 09/09/16 at 06:00 CHANG BECERRA MD September 10, 2016 09:26
[2016-09-10] MEDS: DIGOXIN 0.125 MG TAB GTB SCH (12:18)
[2016-09-10] MEDS: DONEPEZIL 10 MG TAB PO SCH (12:18)
[2016-09-10 22:33] VITALS: BP 128/62; RESP 20
[2016-09-11] MEDS: LANSOPRAZOLE 30 MG CAP GTB SCH (05:51)
[2016-09-11] MEDS: VANCOMYCIN HCL 250 MG/5ML POSYG PEG SCH ×3 (05:51→17:06)
[2016-09-11] MEDS: FUROSEMIDE 40 MG/4 ML CUP GTB SCH (05:51)
[2016-09-11] MEDS: LEVOTHYROXINE 125 MCG TAB GTB SCH (06:08)
[2016-09-11 07:59] VITALS: BP 148/66; RESP 21
[2016-09-11] MEDS: IPRATROPIUM (NEB) 0.5 MG/2.5 ML AMP HHN SCH ×3 (08:23→17:27)
[2016-09-11] MEDS: LEVALBUTEROL (NEB) 0.31 MG/3 ML AMP HHN SCH ×3 (08:24→17:26)
[2016-09-11] MEDS: VALSARTAN 80 MG TAB GTB SCH (08:34)
[2016-09-11] MEDS: ASPIRIN 81 MG TAB NGT SCH (08:34)
[2016-09-11] MEDS: DONEPEZIL 10 MG TAB PO SCH (08:34)
[2016-09-11] MEDS: METOPROLOL 25 MG TAB GTB SCH ×2 (08:34→21:11)
[2016-09-11] MEDS: ENOXAPARIN 40 MG/0.4 ML SYG SC SCH (08:37)
--- NOTE | 2016-09-11 10:43 | PN ---
Date/Time of Note Date/Time of Note DATE: 09/11/16 TIME: 10:41 Assessment/Plan VTE Prophylaxis VTE Prophylaxis Intervention: other Lines/Catheters IV Catheter Type (from [facility]): Saline Lock Urinary Cath still in place: No Assessment/Plan Assessment/Plan 1. Cognition markedly improved 2. CHF resolved 3. Pneumonia resolved 4. Await case management arranging hopeful transfer to [facility] 5. Chronic atrial fibrillation Subjective 24 Hr Interval Summary Subjective hx not possible: other (she doesnt respond to simple questions. daughter at bedside indicates she is comfortable.) Cardiovascular: chest pain Exam/Review of Systems Vital Signs Vitals Vital Signs Date Time Temp Pulse Resp B/P Pulse Ox O2 Delivery O2 Flow Rate FiO2 09/11/16 08:24 73 18 96 21 09/11/16 07:59 97.9 148/66 Intake and Output 09/10/16 09/10/16 09/11/16 14:59 22:59 06:59 Intake Total 600 ml 780 ml 600 ml Balance 600 ml 780 ml 600 ml Exam Neck: No jvd Respiratory: clear to auscultation Cardiovascular: regular rate and rhythm Gastrointestinal: soft Extremities: edema (1+ sacral edema) Results Result Diagram: 09/10/1651909/10/16519 Medications Medications Current Medications Ondansetron HCl (Zofran Inj) 4 mg Q6H PRN IV NAUSEA AND/OR VOMITING; Start at 15:00 Acetaminophen (Tylenol Liquid) 650 mg Q6H PRN GTB PAIN LEVEL 1-3 OR FEVER Last administered on 09/06/16 09:12; Admin Dose 650 MG; Start 08/30/16 at 06:00 Digoxin (Digoxin) 0.125 mg DAILY@13 GTB Last administered on 09/10/16 12:18; Admin Dose 0.125 MG; Start 08/30/16 at 13:00 Magnesium Hydroxide (Milk Of Mag) 30 ml Q24H PRN GTB CONSTIPATION; Start at 19:30 Lansoprazole (Prevacid) 30 mg DAILY@06 GTB Last administered on 09/11/16 05:51 ; Admin Dose 30 MG; Start 08/30/16 at 07:00 Enoxaparin Sodium (Lovenox) 40 mg DAILY SC Last administered on 09/11/16 08:37 ; Admin Dose 40 MG; Start 08/31/16 at 09:00 Metoprolol Tartrate (Lopressor) 12.5 mg BID GTB Last administered on 09/11/16 08:34; Admin Dose 12.5 MG; Start 08/31/16 at 09:30 Aspirin (Aspirin) 81 mg DAILY NGT Last administered on 09/11/16 08:34; Admin Dose 81 MG; Start 09/02/16 at 09:00 Valsartan (Diovan) 80 mg DAILY GTB Last administered on 09/11/16 08:34; Admin Dose 80 MG; Start 09/02/16 at 09:00 Vancomycin HCl (Vancomycin Oral Syringe) 125 mg Q6 PEG Last administered on 09/11 05:51; Admin Dose 125 MG; Start 09/05/16 at 12:00 Furosemide (Lasix) 40 mg DAILY@06 GTB Last administered on 09/11/16 05:51; Admin Dose 40 MG; Start 09/09/16 at 06:00 Donepezil HCl (Aricept) 10 mg DAILY PO Last administered on 09/11/16 08:34; Admin Dose 10 MG; Start 09/10/16 at 09:30 CHANG BECERRA MD September 11, 2016 10:43
[2016-09-11] MEDS: DIGOXIN 0.125 MG TAB GTB SCH (12:19)
[2016-09-11 20:15] VITALS: BP 145/65; RESP 18
[2016-09-12] MEDS: VANCOMYCIN HCL 250 MG/5ML POSYG PEG SCH ×5 (00:23→23:37)
[2016-09-12] MEDS: FUROSEMIDE 40 MG/4 ML CUP GTB SCH (05:45)
[2016-09-12] MEDS: LANSOPRAZOLE 30 MG CAP GTB SCH (05:45)
[2016-09-12] MEDS: LEVOTHYROXINE 125 MCG TAB GTB SCH (05:56)
[2016-09-12 06:17] LABS: ADD SCAN DIFF NO
[2016-09-12 06:27] LABS: BASOPHIL # 0.1 10^3/ul (0.0-0.1); BASOPHILS % 0.8 % (0.0-2.0); EOSINOPHILS # 0.2 10^3/ul (0.0-0.5); EOSINOPHILS % 2.8 % (0.0-7.0); HEMATOCRIT 36.4 % (37.0-47.0); LYMPHOCYTES # 1.7 10^3/ul (0.8-2.9); LYMPHOCYTES % 25.9 % (15.0-51.0); MEAN CORPUSCULAR HEMOGLOBIN 29.1 pg (29.0-33.0); MEAN CORPUSCULAR VOLUME 88.3 fl (82.0-101.0); MEAN PLATELET VOLUME 9.9 fl (7.4-10.4); MONOCYTE # 0.6 10^3/ul (0.3-0.9); MONOCYTES % 8.7 % (0.0-11.0); NEUTROPHILS % 61.2 % (39.0-77.0); PLATELET COUNT 391 10^3/UL (140-415); RED BLOOD COUNT 4.12 10^6/ul (4.20-5.40); RED CELL DISTRIBUTION WIDTH 15.9 % (11.5-14.5); WHITE BLOOD COUNT 6.5 10^3/ul (4.8-10.8)
[2016-09-12 06:47] LABS: ALBUMIN 2.7 g/dl (3.3-4.9); POTASSIUM 3.6 mmol/L (3.5-5.1)
[2016-09-12 06:50] LABS: ALBUMIN/GLOBULIN RATIO 0.69; BILIRUBIN,INDIRECT 0.4 mg/dl (0-1.1); BILIRUBIN,TOTAL 0.4 mg/dl (0.2-1.3); CALCIUM 9.5 mg/dl (8.4-10.2); CREATININE 0.5 mg/dl (0.44-1.00); TOTAL PROTEIN 6.6 g/dl (6.1-8.1)
[2016-09-12 06:51] LABS: PHOSPHORUS 3.2 mg/dl (2.5-4.9)
[2016-09-12 07:59] VITALS: BP 129/60; RESP 18
--- NOTE | 2016-09-12 08:20 | PN ---
Date/Time of Note Date/Time of Note DATE: 09/12/16 TIME: 08:18 Assessment/Plan VTE Prophylaxis VTE Prophylaxis Intervention: LMWH Lines/Catheters IV Catheter Type (from [facility]): Saline Lock Urinary Cath still in place: No Assessment/Plan Assessment/Plan 1. CHF resolved 2. Pneumonia resolved 3. Stroke, stable 4. Mental status markedly improved 5. Can transfer to [facility] when bed available Subjective 24 Hr Interval Summary Subjective hx not possible: other (alert and acknowledged my with a smile when i entered the room) Exam/Review of Systems Vital Signs Vitals Vital Signs Date Time Temp Pulse Resp B/P Pulse Ox O2 Delivery O2 Flow Rate FiO2 09/12/16 07:59 97.4 71 18 129/60 98 09/11/16 17:27 21 Intake and Output 09/11/16 09/11/16 09/12/16 15:00 23:00 07:00 Intake Total 780 ml 780 ml Balance 780 ml 780 ml Exam Neck: No jvd Respiratory: clear to auscultation Cardiovascular: regular rate and rhythm Gastrointestinal: soft Extremities: No edema Neurological: other (left hemipareisis) Results Result Diagram: 09/12/16 0500 09/12/16 0500 Results 24 hrs Laboratory Tests Test 09/12/16 05:00 White Blood Count 6.5 Red Blood Count 4.12 L Hemoglobin 12.0 Hematocrit 36.4 L Mean Corpuscular Volume 88.3 Mean Corpuscular Hemoglobin 29.1 Mean Corpuscular Hemoglobin Concent 33.0 Red Cell Distribution Width 15.9 H Platelet Count 391 Mean Platelet Volume 9.9 Neutrophils % 61.2 Lymphocytes % 25.9 Monocytes % 8.7 Eosinophils % 2.8 Basophils % 0.8 Nucleated Red Blood Cells % 0.0 Neutrophils # 4.0 Lymphocytes # 1.7 Monocytes # 0.6 Eosinophils # 0.2 Basophils # 0.1 Nucleated Red Blood Cells # 0.0 Sodium Level 137 Potassium Level 3.6 Chloride Level 98 Carbon Dioxide Level 30 Anion Gap 13 Blood Urea Nitrogen 25 H Creatinine 0.50 Glucose Level 106 Calcium Level 9.5 Phosphorus Level 3.2 Magnesium Level 2.0 Total Bilirubin 0.4 Direct Bilirubin 0.00 Indirect Bilirubin 0.4 Aspartate Amino Transf (AST/SGOT) 43 Alanine Aminotransferase (ALT/SGPT) 53 Alkaline Phosphatase 209 H Total Protein 6.6 Albumin 2.7 L Globulin 3.90 H Albumin/Globulin Ratio 0.69 Medications Medications Current Medications Ondansetron HCl (Zofran Inj) 4 mg Q6H PRN IV NAUSEA AND/OR VOMITING; Start at 15:00 Acetaminophen (Tylenol Liquid) 650 mg Q6H PRN GTB PAIN LEVEL 1-3 OR FEVER Last administered on 09/06/16 09:12; Admin Dose 650 MG; Start 08/30/16 at 06:00 Digoxin (Digoxin) 0.125 mg DAILY@13 GTB Last administered on 09/11/16 12:19; Admin Dose 0.125 MG; Start 08/30/16 at 13:00 Magnesium Hydroxide (Milk Of Mag) 30 ml Q24H PRN GTB CONSTIPATION; Start at 19:30 Lansoprazole (Prevacid) 30 mg DAILY@06 GTB Last administered on 09/12/16 05:45 ; Admin Dose 30 MG; Start 08/30/16 at 07:00 Enoxaparin Sodium (Lovenox) 40 mg DAILY SC Last administered on 09/11/16 08:37 ; Admin Dose 40 MG; Start 08/31/16 at 09:00 Metoprolol Tartrate (Lopressor) 12.5 mg BID GTB Last administered on 09/11/16 21:11; Admin Dose 12.5 MG; Start 08/31/16 at 09:30 Aspirin (Aspirin) 81 mg DAILY NGT Last administered on 09/11/16 08:34; Admin Dose 81 MG; Start 09/02/16 at 09:00 Valsartan (Diovan) 80 mg DAILY GTB Last administered on 09/11/16 08:34; Admin Dose 80 MG; Start 09/02/16 at 09:00 Vancomycin HCl (Vancomycin Oral Syringe) 125 mg Q6 PEG Last administered on 09/12 05:45; Admin Dose 125 MG; Start 09/05/16 at 12:00 Furosemide (Lasix) 40 mg DAILY@06 GTB Last administered on 09/12/16 05:45; Admin Dose 40 MG; Start 09/09/16 at 06:00 Donepezil HCl (Aricept) 10 mg DAILY PO Last administered on 09/11/16 08:34; Admin Dose 10 MG; Start 5/6/17 at 09:30 Potassium Chloride (Potassium Chloride Pwd/Soln) 40 meq ONCE ONCE GTB ; Start 09/12/16 at 08:30; Stop 09/12/16 at 08:31 CHANG BECERRA MD September 12, 2016 08:20
[2016-09-12] MEDS ORDERED: POTASSIUM CHLORIDE 20 MEQ POWDER FOR ORAL SOLN GTB ONE (08:30)
[2016-09-12] MEDS: LEVALBUTEROL (NEB) 0.31 MG/3 ML AMP HHN SCH ×3 (08:44→17:08)
[2016-09-12] MEDS: IPRATROPIUM (NEB) 0.5 MG/2.5 ML AMP HHN SCH ×3 (08:44→17:08)
[2016-09-12] MEDS: ENOXAPARIN 40 MG/0.4 ML SYG SC SCH (09:10)
[2016-09-12] MEDS: ASPIRIN 81 MG TAB NGT SCH (09:10)
[2016-09-12] MEDS: DONEPEZIL 10 MG TAB PO SCH (09:11)
[2016-09-12] MEDS: VALSARTAN 80 MG TAB GTB SCH (09:12)
[2016-09-12] MEDS: METOPROLOL 25 MG TAB GTB SCH ×2 (09:13→21:24)
[2016-09-12] MEDS: DIGOXIN 0.125 MG TAB GTB SCH (12:08)
[2016-09-12 20:01] VITALS: BP 129/59; RESP 17
[2016-09-13] MEDS: FUROSEMIDE 40 MG/4 ML CUP GTB SCH (05:59)
[2016-09-13] MEDS: LANSOPRAZOLE 30 MG CAP GTB SCH (05:59)
[2016-09-13] MEDS: VANCOMYCIN HCL 250 MG/5ML POSYG PEG SCH ×3 (05:59→17:01)
[2016-09-13] MEDS: LEVOTHYROXINE 125 MCG TAB GTB SCH (06:30)
[2016-09-13 08:01] VITALS: BP 128/58; RESP 18
--- NOTE | 2016-09-13 08:05 | PN ---
Date/Time of Note Date/Time of Note DATE: 09/13/16 TIME: 08:02 Assessment/Plan VTE Prophylaxis VTE Prophylaxis Intervention: LMWH Lines/Catheters IV [facility] (from [facility]): Saline Lock Urinary Cath still in place: No Assessment/Plan Assessment/Plan 1. Pneumonia has resolved. 2. CHF has resolved. 3. 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 Dementia, will resume Namenda 5. C diff has resolved, will dc po vanco tom 6. Await transfer to [facility] 7. Tube feeding progressing without difficulty Subjective 24 Hr Interval Summary Subjective hx not possible: other (alert, acknowledged me entering the room with raising her right hand) Exam/Review of Systems Vital Signs Vitals Vital Signs Date Time Temp Pulse Resp B/P Pulse Ox O2 Delivery O2 Flow Rate FiO2 09/12/16 20:01 98.4 70 17 129/59 95 09/12/16 17:08 21 Intake and Output 09/12/16 09/12/16 09/13/16 15:00 23:00 07:00 Intake Total 780 ml 600 ml Balance 780 ml 600 ml Exam Neck: No jvd Respiratory: clear to auscultation Cardiovascular: regular rate and rhythm Gastrointestinal: soft Extremities: edema (trace sacral edema) Neurological: other (left hemipareisis) Results Result Diagram: 09/12/16 0500 09/12/16 0500 Medications Medications Current Medications Ondansetron HCl (Zofran Inj) 4 mg Q6H PRN IV NAUSEA AND/OR VOMITING; Start at 15:00 Acetaminophen (Tylenol Liquid) 650 mg Q6H PRN GTB PAIN LEVEL 1-3 OR FEVER Last administered on 09/06/16 09:12; Admin Dose 650 MG; Start 08/30/16 at 06:00 Digoxin (Digoxin) 0.125 mg DAILY@13 GTB Last administered on 09/12/16 12:08; Admin Dose 0.125 MG; Start 08/30/16 at 13:00 Magnesium Hydroxide (Milk Of Mag) 30 ml Q24H PRN GTB CONSTIPATION; Start at 19:30 Lansoprazole (Prevacid) 30 mg DAILY@06 GTB Last administered on 09/13/16 05:59 ; Admin Dose 30 MG; Start 08/30/16 at 07:00 Enoxaparin Sodium (Lovenox) 40 mg DAILY SC Last administered on 09/12/16 09:10 ; Admin Dose 40 MG; Start 08/31/16 at 09:00 Metoprolol Tartrate (Lopressor) 12.5 mg BID GTB Last administered on 09/12/16 21:24; Admin Dose 12.5 MG; Start 08/31/16 at 09:30 Aspirin (Aspirin) 81 mg DAILY NGT Last administered on 09/12/16 09:10; Admin Dose 81 MG; Start 09/02/16 at 09:00 Valsartan (Diovan) 80 mg DAILY GTB Last administered on 09/12/16 09:12; Admin Dose 80 MG; Start 09/02/16 at 09:00 Vancomycin HCl (Vancomycin Oral Syringe) 125 mg Q6 PEG Last administered on 09/13 05:59; Admin Dose 125 MG; Start 09/05/16 at 12:00 Furosemide (Lasix) 40 mg DAILY@06 GTB Last administered on 09/13/16 05:59; Admin Dose 40 MG; Start 09/09/16 at 06:00 Donepezil HCl (Aricept) 10 mg DAILY PO Last administered on 09/12/16 09:11; Admin Dose 10 MG; Start 09/10/16 at 09:30 CHANG BECERRA MD September 13, 2016 08:05
[2016-09-13] MEDS: LEVALBUTEROL (NEB) 0.31 MG/3 ML AMP HHN SCH ×3 (08:36→17:40)
[2016-09-13] MEDS: IPRATROPIUM (NEB) 0.5 MG/2.5 ML AMP HHN SCH ×3 (08:36→16:40)
[2016-09-13] MEDS: ENOXAPARIN 40 MG/0.4 ML SYG SC SCH (09:48)
[2016-09-13] MEDS: VALSARTAN 80 MG TAB GTB SCH (09:49)
[2016-09-13] MEDS: ASPIRIN 81 MG TAB NGT SCH (09:50)
[2016-09-13] MEDS: METOPROLOL 25 MG TAB GTB SCH ×2 (09:50→21:21)
[2016-09-13] MEDS: DONEPEZIL 10 MG TAB PO SCH (09:50)
[2016-09-13] MEDS: MEMANTINE 10 MG TAB PO SCH (09:53)
[2016-09-13] MEDS: DIGOXIN 0.125 MG TAB GTB SCH (13:34)
[2016-09-13 20:40] VITALS: BP 117/58; RESP 19
[2016-09-14] MEDS: VANCOMYCIN HCL 250 MG/5ML POSYG PEG SCH ×4 (06:06→17:05)
[2016-09-14] MEDS: LANSOPRAZOLE 30 MG CAP GTB SCH (06:06)
[2016-09-14] MEDS: LEVOTHYROXINE 125 MCG TAB GTB SCH (06:06)
[2016-09-14] MEDS: FUROSEMIDE 40 MG/4 ML CUP GTB SCH (06:06)
[2016-09-14 07:57] VITALS: BP 141/67; RESP 22
[2016-09-14] MEDS: DONEPEZIL 10 MG TAB PO SCH (08:25)
[2016-09-14] MEDS: MEMANTINE 10 MG TAB PO SCH (08:25)
[2016-09-14] MEDS: VALSARTAN 80 MG TAB GTB SCH (08:25)
[2016-09-14] MEDS: METOPROLOL 25 MG TAB GTB SCH ×2 (08:25→22:01)
[2016-09-14] MEDS: ENOXAPARIN 40 MG/0.4 ML SYG SC SCH (08:28)
--- NOTE | 2016-09-14 08:43 | PN ---
Date/Time of Note Date/Time of Note DATE: 09/14/16 TIME: 08:40 Assessment/Plan VTE Prophylaxis VTE Prophylaxis Intervention: LMWH Lines/Catheters Urinary Cath still in place: No Assessment/Plan Assessment/Plan 1. Await transfer to [facility], a semiprivate room would be acceptable as no acute care is now needed. Pneumonia and CHF have resolved. and mental status overall improved. She is continuing to receive PT. Subjective 24 Hr Interval Summary Subjective hx not possible: other (comrfortable and eyes are open) Exam/Review of Systems Vital Signs Vitals Vital Signs Date Time Temp Pulse Resp B/P Pulse Ox O2 Delivery O2 Flow Rate FiO2 09/14/16 07:57 97.8 71 22 141/67 98 09/14/16 04:23 2.0 09/13/16 18:09 28 Intake and Output 09/13/16 09/13/16 09/14/16 15:00 23:00 07:00 Intake Total 700 ml 700 ml Balance 700 ml 700 ml Exam Neck: No jvd Respiratory: clear to auscultation Cardiovascular: regular rate and rhythm Gastrointestinal: soft Extremities: edema (trace sacral edema) Neurological: other (she does not follow simple commands) Results Result Diagram: 09/12/16 0500 09/12/16 0500 Medications Medications Current Medications Ondansetron HCl (Zofran Inj) 4 mg Q6H PRN IV NAUSEA AND/OR VOMITING; Start at 15:00 Acetaminophen (Tylenol Liquid) 650 mg Q6H PRN GTB PAIN LEVEL 1-3 OR FEVER Last administered on 09/06/16 09:12; Admin Dose 650 MG; Start 08/30/16 at 06:00 Digoxin (Digoxin) 0.125 mg DAILY@13 GTB Last administered on 09/13/16 13:34; Admin Dose 0.125 MG; Start 08/30/16 at 13:00 Magnesium Hydroxide (Milk Of Mag) 30 ml Q24H PRN GTB CONSTIPATION; Start at 19:30 Lansoprazole (Prevacid) 30 mg DAILY@06 GTB Last administered on 09/14/16 06:06 ; Admin Dose 30 MG; Start 08/30/16 at 07:00 Enoxaparin Sodium (Lovenox) 40 mg DAILY SC Last administered on 09/14/16 08:28 ; Admin Dose 40 MG; Start 08/31/16 at 09:00 Metoprolol Tartrate (Lopressor) 12.5 mg BID GTB Last administered on 09/14/16 08:25; Admin Dose 12.5 MG; Start 08/31/16 at 09:30 Aspirin (Aspirin) 81 mg DAILY NGT Last administered on 09/13/16 09:50; Admin Dose 81 MG; Start 09/02/16 at 09:00 Valsartan (Diovan) 80 mg DAILY GTB Last administered on 09/14/16 08:25; Admin Dose 80 MG; Start 09/02/16 at 09:00 Vancomycin HCl (Vancomycin Oral Syringe) 125 mg Q6 PEG Last administered on 06:06; Admin Dose 125 MG; Start 09/05/16 at 12:00 Furosemide (Lasix) 40 mg DAILY@06 GTB Last administered on 09/14/16 06:06; Admin Dose 40 MG; Start 09/09/16 at 06:00 Donepezil HCl (Aricept) 10 mg DAILY PO Last administered on 09/14/16 08:25; Admin Dose 10 MG; Start 09/10/16 at 09:30 Memantine (Namenda) 10 mg DAILY PO Last administered on 09/14/16 08:25; Admin Dose 10 MG; Start 09/13/16 at 09:00 CHANG BECERRA MD September 14, 2016 08:43
[2016-09-14] MEDS: IPRATROPIUM (NEB) 0.5 MG/2.5 ML AMP HHN SCH ×3 (09:07→17:00)
[2016-09-14] MEDS: LEVALBUTEROL (NEB) 0.31 MG/3 ML AMP HHN SCH ×3 (09:07→17:00)
[2016-09-14] MEDS: ASPIRIN 81 MG TAB NGT SCH (09:33)
[2016-09-14 12:06] VITALS: BP 144/65; PULSE 70
[2016-09-14] MEDS: DIGOXIN 0.125 MG TAB GTB SCH (13:09)
[2016-09-15] MEDS: VANCOMYCIN HCL 250 MG/5ML POSYG PEG SCH ×5 (00:24→23:26)
[2016-09-15] MEDS: FUROSEMIDE 40 MG/4 ML CUP GTB SCH (06:20)
[2016-09-15] MEDS: LANSOPRAZOLE 30 MG CAP GTB SCH (06:20)
[2016-09-15] MEDS: LEVOTHYROXINE 125 MCG TAB GTB SCH (06:54)
[2016-09-15] MEDS: VALSARTAN 80 MG TAB GTB SCH (08:06)
[2016-09-15] MEDS: METOPROLOL 25 MG TAB GTB SCH ×2 (08:07→21:38)
[2016-09-15 08:08] VITALS: BP 102/72; RESP 16
[2016-09-15] MEDS: MEMANTINE 10 MG TAB PO SCH (08:12)
[2016-09-15] MEDS: DONEPEZIL 10 MG TAB PO SCH (08:12)
[2016-09-15] MEDS: ASPIRIN 81 MG TAB NGT SCH (08:12)
--- NOTE | 2016-09-15 08:15 | PN ---
Date/Time of Note Date/Time of Note DATE: 09/15/16 TIME: 08:13 Assessment/Plan VTE Prophylaxis VTE Prophylaxis Intervention: other Lines/Catheters IV Catheter Type (from Nrs): Saline Lock Urinary Cath still in place: No Assessment/Plan Assessment/Plan 1. CHF has resolved 2. Pneumonia has resolved. 3. Left hemiparesis and cognition stable 4. Await transfer to [facility] 5. Chronic atrial fib Subjective 24 Hr Interval Summary Subjective hx not possible: pt non-verbal (comfotable) Exam/Review of Systems Vital Signs Vitals Vital Signs Date Time Temp Pulse Resp B/P Pulse Ox O2 Delivery O2 Flow Rate FiO2 09/15/16 08:08 98.1 76 16 102/72 99 09/15/16 01:54 21 09/14/16 04:23 2.0 Intake and Output 09/14/16 09/14/16 09/15/16 15:00 23:00 07:00 Intake Total 780 ml 780 ml Balance 780 ml 780 ml Exam Neck: No jvd Respiratory: clear to auscultation Cardiovascular: regular rate and rhythm Gastrointestinal: soft Extremities: edema (sacral, 1+) Neurological: other (somnolent, left hemipareisis) Results Result Diagram: 09/12/16 0500 09/12/16 0500 Medications Medications Current Medications Ondansetron HCl (Zofran Inj) 4 mg Q6H PRN IV NAUSEA AND/OR VOMITING; Start at 15:00 Acetaminophen (Tylenol Liquid) 650 mg Q6H PRN GTB PAIN LEVEL 1-3 OR FEVER Last administered on 09/06/16 09:12; Admin Dose 650 MG; Start 08/30/16 at 06:00 Digoxin (Digoxin) 0.125 mg DAILY@13 GTB Last administered on 09/14/16 13:09; Admin Dose 0.125 MG; Start 08/30/16 at 13:00 Magnesium Hydroxide (Milk Of Mag) 30 ml Q24H PRN GTB CONSTIPATION; Start at 19:30 Lansoprazole (Prevacid) 30 mg DAILY@06 GTB Last administered on 09/15/16 06:20 ; Admin Dose 30 MG; Start 08/30/16 at 07:00 Enoxaparin Sodium (Lovenox) 40 mg DAILY SC Last administered on 09/14/16 08:28 ; Admin Dose 40 MG; Start 08/31/16 at 09:00 Metoprolol Tartrate (Lopressor) 12.5 mg BID GTB Last administered on 09/14/16 22:01; Admin Dose 12.5 MG; Start 08/31/16 at 09:30 Aspirin (Aspirin) 81 mg DAILY NGT Last administered on 09/14/16 09:33; Admin Dose 81 MG; Start 09/02/16 at 09:00 Valsartan (Diovan) 80 mg DAILY GTB Last administered on 09/14/16 08:25; Admin Dose 80 MG; Start 09/02/16 at 09:00 Vancomycin HCl (Vancomycin Oral Syringe) 125 mg Q6 PEG Last administered on 06:20; Admin Dose 125 MG; Start 09/05/16 at 12:00 Furosemide (Lasix) 40 mg DAILY@06 GTB Last administered on 09/15/16 06:20; Admin Dose 40 MG; Start 09/09/16 at 06:00 Donepezil HCl (Aricept) 10 mg DAILY PO Last administered on 09/14/16 08:25; Admin Dose 10 MG; Start 09/10/16 at 09:30 Memantine (Namenda) 10 mg DAILY PO Last administered on 09/14/16 08:25; Admin Dose 10 MG; Start 09/13/16 at 09:00 CHANG BECERRA MD September 15, 2016 08:15
[2016-09-15] MEDS: ENOXAPARIN 40 MG/0.4 ML SYG SC SCH (08:20)
[2016-09-15] MEDS: DIGOXIN 0.125 MG TAB GTB SCH (12:33)
[2016-09-15 20:00] VITALS: BP 119/56; RESP 18
[2016-09-16 05:52] LABS: ADD SCAN DIFF NO
[2016-09-16 05:55] LABS: BASOPHIL # 0.1 10^3/ul (0.0-0.1); BASOPHILS % 0.7 % (0.0-2.0); EOSINOPHILS # 0.3 10^3/ul (0.0-0.5); EOSINOPHILS % 3.9 % (0.0-7.0); HEMATOCRIT 40.5 % (37.0-47.0); HEMOGLOBIN 12.9 g/dl (12.0-16.0); LYMPHOCYTES # 2.4 10^3/ul (0.8-2.9); LYMPHOCYTES % 33.1 % (15.0-51.0); MEAN CORPUSCULAR HGB CONC 31.9 g/dl (32.0-37.0); MEAN PLATELET VOLUME 9.8 fl (7.4-10.4); MONOCYTE # 0.8 10^3/ul (0.3-0.9); NEUTROPHIL # 3.7 10^3/ul (1.6-7.5); NEUTROPHILS % 50.9 % (39.0-77.0); PLATELET COUNT 310 10^3/UL (140-415); RED BLOOD COUNT 4.45 10^6/ul (4.20-5.40); RED CELL DISTRIBUTION WIDTH 16.4 % (11.5-14.5); WHITE BLOOD COUNT 7.2 10^3/ul (4.8-10.8)
[2016-09-16] MEDS: LANSOPRAZOLE 30 MG CAP GTB SCH (06:19)
[2016-09-16] MEDS: FUROSEMIDE 40 MG/4 ML CUP GTB SCH (06:19)
[2016-09-16] MEDS: VANCOMYCIN HCL 250 MG/5ML POSYG PEG SCH ×3 (06:19→17:01)
[2016-09-16 06:55] LABS: MAGNESIUM 2.1 mg/dl (1.7-2.5); PHOSPHORUS 3.1 mg/dl (2.5-4.9)
[2016-09-16 07:01] LABS: ALBUMIN 2.9 g/dl (3.3-4.9); ALBUMIN/GLOBULIN RATIO 0.78; BILIRUBIN,INDIRECT 0.4 mg/dl (0-1.1); BILIRUBIN,TOTAL 0.4 mg/dl (0.2-1.3); CALCIUM 10.2 mg/dl (8.4-10.2); CREATININE 0.5 mg/dl (0.44-1.00); POTASSIUM 4.6 mmol/L (3.5-5.1); TOTAL PROTEIN 6.6 g/dl (6.1-8.1)
[2016-09-16] MEDS: LEVOTHYROXINE 125 MCG TAB GTB SCH (07:07)
--- NOTE | 2016-09-16 08:06 | PN ---
Date/Time of Note Date/Time of Note DATE: 09/16/16 TIME: 08:00 Assessment/Plan VTE Prophylaxis VTE Prophylaxis Intervention: LMWH, other Lines/Catheters [facility] Saline Lock Urinary Cath still in place: No Assessment/Plan Assessment/Plan 1. She is cardiovasc stable, no clinical chf, bp controlled, pneumonia resolved , no change in cognition. Discussion with Jair Waddell and case management at [facility] --- because she can not actively participate in rehab (PT) Jair Waddell is not a good fit---options are ECF or home care. Rev with daughter. She prefers home care with all the support that possible. She does not want to consider Hospice care for now and still is "fine" with no code status. 2. Labs reviewed Subjective 24 Hr Interval Summary Subjective hx not possible: other (Awake) Exam/Review of Systems Vital Signs Vitals Vital Signs Date Time Temp Pulse Resp B/P Pulse Ox O2 Delivery O2 Flow Rate FiO2 09/15/16 20:00 98.1 72 18 119/56 96 09/15/16 08:55 21 09/14/16 04:23 2.0 Intake and Output 09/15/16 09/15/16 09/16/16 14:59 22:59 06:59 Intake Total 780 ml 700 ml Balance 780 ml 700 ml Exam Neck: No jvd Respiratory: clear to auscultation Cardiovascular: regular rate and rhythm Gastrointestinal: soft, No hepatomegaly, No splenomegaly Extremities: No edema (of legs bit trace sacral edema) Neurological: other (she does not follow commands but grabbed my hand when I grabbed her hand, left sided pareisis) Results Result Diagram: 09/16/16 0515 09/16/16 0515 Results 24 hrs Laboratory Tests Test 09/16/16 05:15 White Blood Count 7.2 Red Blood Count 4.45 Hemoglobin 12.9 Hematocrit 40.5 Mean Corpuscular Volume 91.0 Mean Corpuscular Hemoglobin 29.0 Mean Corpuscular Hemoglobin Concent 31.9 L Red Cell Distribution Width 16.4 H Platelet Count 310 # Mean Platelet Volume 9.8 Neutrophils % 50.9 Lymphocytes % 33.1 Monocytes % 11.0 Eosinophils % 3.9 Basophils % 0.7 Nucleated Red Blood Cells % 0.0 Neutrophils # 3.7 Lymphocytes # 2.4 Monocytes # 0.8 Eosinophils # 0.3 Basophils # 0.1 Nucleated Red Blood Cells # 0.0 Sodium Level 136 Potassium Level 4.6 Chloride Level 102 Carbon Dioxide Level 29 Anion Gap 10 Blood Urea Nitrogen 25 H Creatinine 0.50 Glucose Level 126 Calcium Level 10.2 Phosphorus Level 3.1 Magnesium Level 2.1 Total Bilirubin 0.4 Direct Bilirubin 0.00 Indirect Bilirubin 0.4 Aspartate Amino Transf (AST/SGOT) 50 H Alanine Aminotransferase (ALT/SGPT) 38 Alkaline Phosphatase 197 H Total Protein 6.6 Albumin 2.9 L Globulin 3.70 H Albumin/Globulin Ratio 0.78 Medications Medications Current Medications Ondansetron HCl (Zofran Inj) 4 mg Q6H PRN IV NAUSEA AND/OR VOMITING; Start at 15:00 Acetaminophen (Tylenol Liquid) 650 mg Q6H PRN GTB PAIN LEVEL 1-3 OR FEVER Last administered on 09/06/16 09:12; Admin Dose 650 MG; Start 08/30/16 at 06:00 Digoxin (Digoxin) 0.125 mg DAILY@13 GTB Last administered on 09/15/16 12:33; Admin Dose 0.125 MG; Start 08/30/16 at 13:00 Magnesium Hydroxide (Milk Of Mag) 30 ml Q24H PRN GTB CONSTIPATION; Start at 19:30 Lansoprazole (Prevacid) 30 mg DAILY@06 GTB Last administered on 09/16/16 06:19 ; Admin Dose 30 MG; Start 08/30/16 at 07:00 Enoxaparin Sodium (Lovenox) 40 mg DAILY SC Last administered on 09/15/16 08:20 ; Admin Dose 40 MG; Start 08/31/16 at 09:00 Metoprolol Tartrate (Lopressor) 12.5 mg BID GTB Last administered on 09/15/16 21:38; Admin Dose 12.5 MG; Start 08/31/16 at 09:30 Aspirin (Aspirin) 81 mg DAILY NGT Last administered on 09/15/16 08:12; Admin Dose 81 MG; Start 09/02/16 at 09:00 Valsartan (Diovan) 80 mg DAILY GTB Last administered on 09/14/16 08:25; Admin Dose 80 MG; Start 09/02/16 at 09:00 Vancomycin HCl (Vancomycin Oral Syringe) 125 mg Q6 PEG Last administered on 06:19; Admin Dose 125 MG; Start 09/05/16 at 12:00 Furosemide (Lasix) 40 mg DAILY@06 GTB Last administered on 09/16/16 06:19; Admin Dose 40 MG; Start 09/09/16 at 06:00 Donepezil HCl (Aricept) 10 mg DAILY PO Last administered on 09/15/16 08:12; Admin Dose 10 MG; Start 09/10/16 at 09:30 Memantine (Namenda) 10 mg DAILY PO Last administered on 09/15/16 08:12; Admin Dose 10 MG; Start 09/13/16 at 09:00 CHANG BECERRA MD September 16, 2016 08:06
[2016-09-16 08:27] VITALS: BP 140/63; RESP 16
[2016-09-16] MEDS: VALSARTAN 80 MG TAB GTB SCH (08:59)
[2016-09-16] MEDS: DONEPEZIL 10 MG TAB PO SCH (08:59)
[2016-09-16] MEDS: MEMANTINE 10 MG TAB PO SCH (08:59)
[2016-09-16] MEDS: METOPROLOL 25 MG TAB GTB SCH ×2 (09:01→20:25)
[2016-09-16] MEDS: ASPIRIN 81 MG TAB NGT SCH (09:01)
[2016-09-16] MEDS: ENOXAPARIN 40 MG/0.4 ML SYG SC SCH (09:02)
[2016-09-16] MEDS: DIGOXIN 0.125 MG TAB GTB SCH (12:41)
[2016-09-16 20:09] VITALS: BP 117/55; RESP 16
[2016-09-17] MEDS: VANCOMYCIN HCL 250 MG/5ML POSYG PEG SCH ×4 (00:20→17:36)
[2016-09-17] MEDS: FUROSEMIDE 40 MG/4 ML CUP GTB SCH (05:46)
[2016-09-17] MEDS: LANSOPRAZOLE 30 MG CAP GTB SCH (05:46)
[2016-09-17] MEDS: LEVOTHYROXINE 125 MCG TAB GTB SCH (05:51)
[2016-09-17 08:05] VITALS: BP 126/58; RESP 18
[2016-09-17] MEDS: ENOXAPARIN 40 MG/0.4 ML SYG SC SCH (09:04)
[2016-09-17] MEDS: MEMANTINE 10 MG TAB PO SCH (09:04)
[2016-09-17] MEDS: ASPIRIN 81 MG TAB NGT SCH (09:04)
[2016-09-17] MEDS: METOPROLOL 25 MG TAB GTB SCH ×2 (09:05→22:11)
[2016-09-17] MEDS: DONEPEZIL 10 MG TAB PO SCH (09:05)
[2016-09-17] MEDS: VALSARTAN 80 MG TAB GTB SCH (09:05)
[2016-09-17] MEDS: DIGOXIN 0.125 MG TAB GTB SCH (12:37)
--- NOTE | 2016-09-17 16:07 | PN ---
Date/Time of Note Date/Time of Note DATE: 09/17/16 TIME: 16:05 Assessment/Plan VTE Prophylaxis VTE Prophylaxis Intervention: SCD's Lines/Catheters IV Catheter Type (from Nrs): Saline Lock Urinary Cath still in place: No Assessment/Plan Assessment/Plan 1. She is cardiovasc stable, no clinical chf, bp controlled, pneumonia resolved , no change in cognition. -Discussion with Jair Waddell and case management at [facility]--- because she can not actively participate in rehab (PT) [facility] is not a good fit---options are ECF or home care. Rev with daughter. -romie still thinks that patient can participate with OT, -She is unable to take care of the patient at home care with all the support that possible. She does not want to consider Hospice care for now and still is "fine" with no code status. 2. Labs reviewed Subjective 24 Hr Interval Summary Constitutional: improved, no complaints Cardiovascular: no complaints Exam/Review of Systems Vital Signs Vitals Vital Signs Date Time Temp Pulse Resp B/P Pulse Ox O2 Delivery O2 Flow Rate FiO2 09/17/16 08:05 97.5 70 18 126/58 98 09/15/16 08:55 21 09/14/16 04:23 2.0 Intake and Output 09/16/16 09/16/16 09/17/16 15:00 23:00 07:00 Intake Total 600 ml 700 ml Balance 600 ml 700 ml Exam Constitutional: non-verbal Psych: no complaints Head: normocephalic Eyes: EOMI Neck: non-tender, supple Cardiovascular: regular rate and rhythm Gastrointestinal: soft Results Result Diagram: 09/16/16 0515 09/16/16 0515 Medications Medications Current Medications Ondansetron HCl (Zofran Inj) 4 mg Q6H PRN IV NAUSEA AND/OR VOMITING; Start at 15:00 Acetaminophen (Tylenol Liquid) 650 mg Q6H PRN GTB PAIN LEVEL 1-3 OR FEVER Last administered on 09/06/16 09:12; Admin Dose 650 MG; Start 08/30/16 at 06:00 Digoxin (Digoxin) 0.125 mg DAILY@13 GTB Last administered on 09/17/16 12:37; Admin Dose 0.125 MG; Start 08/30/16 at 13:00 Magnesium Hydroxide (Milk Of Mag) 30 ml Q24H PRN GTB CONSTIPATION; Start at 19:30 Lansoprazole (Prevacid) 30 mg DAILY@06 GTB Last administered on 09/17/16 05:46 ; Admin Dose 30 MG; Start 08/30/16 at 07:00 Enoxaparin Sodium (Lovenox) 40 mg DAILY SC Last administered on 09/17/16 09:04 ; Admin Dose 40 MG; Start 08/31/16 at 09:00 Metoprolol Tartrate (Lopressor) 12.5 mg BID GTB Last administered on 09/17/16 09:05; Admin Dose 12.5 MG; Start 08/31/16 at 09:30 Aspirin (Aspirin) 81 mg DAILY NGT Last administered on 09/17/16 09:04; Admin Dose 81 MG; Start 09/02/16 at 09:00 Valsartan (Diovan) 80 mg DAILY GTB Last administered on 09/17/16 09:05; Admin Dose 80 MG; Start 09/02/16 at 09:00 Vancomycin HCl (Vancomycin Oral Syringe) 125 mg Q6 PEG Last administered on 12:27; Admin Dose 125 MG; Start 09/05/16 at 12:00 Furosemide (Lasix) 40 mg DAILY@06 GTB Last administered on 09/17/16 05:46; Admin Dose 40 MG; Start 09/09/16 at 06:00 Donepezil HCl (Aricept) 10 mg DAILY PO Last administered on 09/17/16 09:05; Admin Dose 10 MG; Start 09/10/16 at 09:30 Memantine (Namenda) 10 mg DAILY PO Last administered on 09/17/16 09:04; Admin Dose 10 MG; Start 09/13/16 at 09:00 NIKHIL RIVERA MD September 17, 2016 16:07
[2016-09-17 21:34] VITALS: BP 130/57; RESP 18
[2016-09-18] MEDS: VANCOMYCIN HCL 250 MG/5ML POSYG PEG SCH ×5 (00:23→23:26)
[2016-09-18 05:44] VITALS: BP 124/86; PULSE 75
[2016-09-18] MEDS: LANSOPRAZOLE 30 MG CAP GTB SCH (05:46)
[2016-09-18] MEDS: FUROSEMIDE 40 MG/4 ML CUP GTB SCH (05:46)
[2016-09-18] MEDS: LEVOTHYROXINE 125 MCG TAB GTB SCH (06:04)
[2016-09-18 07:25] VITALS: BP 142/66; RESP 18
[2016-09-18] MEDS: ASPIRIN 81 MG TAB NGT SCH (09:14)
[2016-09-18] MEDS: DONEPEZIL 10 MG TAB PO SCH (09:14)
[2016-09-18] MEDS: VALSARTAN 80 MG TAB GTB SCH (09:14)
[2016-09-18] MEDS: METOPROLOL 25 MG TAB GTB SCH ×2 (09:15→20:42)
[2016-09-18] MEDS: ENOXAPARIN 40 MG/0.4 ML SYG SC SCH (09:17)
[2016-09-18] MEDS: MEMANTINE 10 MG TAB PO SCH (12:28)
[2016-09-18] MEDS: DIGOXIN 0.125 MG TAB GTB SCH (12:28)
[2016-09-18 19:48] VITALS: BP 122/58; RESP 16
--- NOTE | 2016-09-18 22:02 | PN ---
Date/Time of Note Date/Time of Note DATE: 09/18/16 TIME: 21:59 Assessment/Plan VTE Prophylaxis VTE Prophylaxis Intervention: SCD's Lines/Catheters IV Catheter Type (from Nrsg): Saline Lock Urinary Cath still in place: No Assessment/Plan Assessment/Plan 1. She is cardiovasc stable, no clinical chf, bp controlled, pneumonia resolved , no change in cognition. -Discussion with Jair Waddell and case management at [facility]--- because she can not actively participate in rehab (PT) [facility]add[facility] is not a good fit---options are ECF or home care. Rev with daughter. -romie still thinks that patient can participate with OT, -She is unable to take care of the patient at home care with all the support that possible. She does not want to consider Hospice care for now and still is "fine" with no code status. -no changes waiting for placement 2. Labs reviewed Subjective 24 Hr Interval Summary Constitutional: no complaints Eyes: no complaints Genitourinary: no complaints Exam/Review of Systems Vital Signs Vitals Vital Signs Date Time Temp Pulse Resp B/P Pulse Ox O2 Delivery O2 Flow Rate FiO2 09/18/16 07:25 98.2 71 18 142/66 98 09/15/16 08:55 21 Intake and Output 09/17/16 09/17/16 09/18/16 15:00 23:00 07:00 Intake Total 500 ml 700 ml Balance 500 ml 700 ml Exam Constitutional: frail, non-verbal Neck: supple Cardiovascular: nl pulses, regular rate and rhythm Gastrointestinal: soft Neurological: [employer]ENT[employer] II-XII intact Results Result Diagram: 09/16/16 0515 09/16/16514 Medications Medications Current Medications Ondansetron HCl (Zofran Inj) 4 mg Q6H PRN IV NAUSEA AND/OR VOMITING; Start at 15:00 Acetaminophen (Tylenol Liquid) 650 mg Q6H PRN GTB PAIN LEVEL 1-3 OR FEVER Last administered on 09/06/16 09:12; Admin Dose 650 MG; Start 08/30/16 at 06:00 Digoxin (Digoxin) 0.125 mg DAILY@13 GTB Last administered on 09/18/16 12:28; Admin Dose 0.125 MG; Start 08/30/16 at 13:00 Magnesium Hydroxide (Milk Of Mag) 30 ml Q24H PRN GTB CONSTIPATION; Start at 19:30 Lansoprazole (Prevacid) 30 mg DAILY@06 GTB Last administered on 09/18/16 05:46 ; Admin Dose 30 MG; Start 08/30/16 at 07:00 Enoxaparin Sodium (Lovenox) 40 mg DAILY SC Last administered on 09/18/16 09:17 ; Admin Dose 40 MG; Start 08/31/16 at 09:00 Metoprolol Tartrate (Lopressor) 12.5 mg BID GTB Last administered on 09/18/16 20:42; Admin Dose 12.5 MG; Start 08/31/16 at 09:30 Aspirin (Aspirin) 81 mg DAILY NGT Last administered on 09/18/16 09:14; Admin Dose 81 MG; Start 09/02/16 at 09:00 Valsartan (Diovan) 80 mg DAILY GTB Last administered on 09/18/16 09:14; Admin Dose 80 MG; Start 09/02/16 at 09:00 Vancomycin HCl (Vancomycin Oral Syringe) 125 mg Q6 PEG Last administered on 17:52; Admin Dose 125 MG; Start 09/05/16 at 12:00 Furosemide (Lasix) 40 mg DAILY@06 GTB Last administered on 09/18/16 05:46; Admin Dose 40 MG; Start 09/09/16 at 06:00 Donepezil HCl (Aricept) 10 mg DAILY PO Last administered on 09/18/16 09:14; Admin Dose 10 MG; Start 09/10/16 at 09:30 Memantine (Namenda) 10 mg DAILY PO Last administered on 09/18/16 12:28; Admin Dose 10 MG; Start 09/13/16 at 09:00 NIKHIL RIVERA MD September 18, 2016 22:02
[2016-09-19 05:08] VITALS: BP 105/67; PULSE 70
[2016-09-19] MEDS: FUROSEMIDE 40 MG/4 ML CUP GTB SCH (05:10)
[2016-09-19] MEDS: LANSOPRAZOLE 30 MG CAP GTB SCH (05:10)
[2016-09-19] MEDS: VANCOMYCIN HCL 250 MG/5ML POSYG PEG SCH ×4 (05:10→23:25)
[2016-09-19] MEDS: LEVOTHYROXINE 125 MCG TAB GTB SCH (06:04)
[2016-09-19 07:10] VITALS: BP 159/63; RESP 18
[2016-09-19 07:45] LABS: ADD SCAN DIFF NO
[2016-09-19 07:50] LABS: BASOPHILS % 0.6 % (0.0-2.0); EOSINOPHILS # 0.2 10^3/ul (0.0-0.5); EOSINOPHILS % 2.9 % (0.0-7.0); HEMATOCRIT 41.6 % (37.0-47.0); HEMOGLOBIN 12.9 g/dl (12.0-16.0); LYMPHOCYTES # 2.6 10^3/ul (0.8-2.9); LYMPHOCYTES % 39.3 % (15.0-51.0); MEAN CORPUSCULAR HEMOGLOBIN 28.8 pg (29.0-33.0); MEAN CORPUSCULAR VOLUME 92.9 fl (82.0-101.0); MEAN PLATELET VOLUME 9.8 fl (7.4-10.4); MONOCYTE # 0.8 10^3/ul (0.3-0.9); MONOCYTES % 11.3 % (0.0-11.0); NEUTROPHILS % 45.6 % (39.0-77.0); PLATELET COUNT 256 10^3/UL (140-415); RED BLOOD COUNT 4.48 10^6/ul (4.20-5.40); RED CELL DISTRIBUTION WIDTH 17.9 % (11.5-14.5); WHITE BLOOD COUNT 6.6 10^3/ul (4.8-10.8)
[2016-09-19 08:02] LABS: ALBUMIN 3.2 g/dl (3.3-4.9); POTASSIUM 3.6 mmol/L (3.5-5.1)
[2016-09-19 08:04] LABS: CREATININE 0.68 mg/dl (0.44-1.00)
[2016-09-19 08:05] LABS: CALCIUM 10.4 mg/dl (8.4-10.2); MAGNESIUM 2.2 mg/dl (1.7-2.5); PHOSPHORUS 3.9 mg/dl (2.5-4.9)
[2016-09-19] MEDS: VALSARTAN 80 MG TAB GTB SCH (09:51)
[2016-09-19] MEDS: MEMANTINE 10 MG TAB PO SCH (09:52)
[2016-09-19] MEDS: DONEPEZIL 10 MG TAB PO SCH (09:53)
[2016-09-19] MEDS: METOPROLOL 25 MG TAB GTB SCH ×2 (09:53→21:00)
[2016-09-19] MEDS: ASPIRIN 81 MG TAB NGT SCH (09:53)
[2016-09-19] MEDS: ENOXAPARIN 40 MG/0.4 ML SYG SC SCH (09:54)
[2016-09-19] MEDS: DIGOXIN 0.125 MG TAB GTB SCH (12:14)
--- NOTE | 2016-09-19 13:26 | CONS ---
Date/Time of Note Date/Time of Note DATE: 09/19/16 TIME: 12:54 Assessment/Plan Assessment/Plan Chief Complaint/Hosp Course 1. CVA , with expressive aphasia and L hemiparesis 2. chronic a fib 3. CHF , improved . 4. pneumonia , improved 5. C difficle infection , treated 6. dysphagia , with tube feeding 7. discharge planning is in progress . Problems: Consultation Date/Type/Reason Admit Date/Time Aug 29, 2016 at 12:06 Initial Consult Date 09/02/16 Type of Consultation: ID Referring Provider: JENISE GERMAN MD 24 HR Interval Summary Free Text/Dictation Patient is awake and does make eye contact but is not talking . Daughter is in the room . Subjective hx not possible: pt non-verbal Exam/Review of Systems Vital Signs Vitals Vital Signs Date Time Temp Pulse Resp B/P Pulse Ox O2 Delivery O2 Flow Rate FiO2 09/19/16 07:10 97.9 73 18 159/63 96 09/15/16 08:55 21 Intake and Output 09/18/16 09/18/16 09/19/16 15:00 23:00 07:00 Intake Total 620 ml 650 ml Balance 620 ml 650 ml Exam Constitutional: non-verbal Respiratory: clear to auscultation, diminished breath sounds Cardiovascular: irregular rhythm Gastrointestinal: soft Musculoskeletal: nl extremities to inspection Results Result Diagram: 09/19/16 0700 09/19/16 0700 Results 24 hrs Laboratory Tests Test 09/19/16 07:00 White Blood Count 6.6 Red Blood Count 4.48 Hemoglobin 12.9 Hematocrit 41.6 Mean Corpuscular Volume 92.9 Mean Corpuscular Hemoglobin 28.8 L Mean Corpuscular Hemoglobin Concent 31.0 L Red Cell Distribution Width 17.9 H Platelet Count 256 Mean Platelet Volume 9.8 Neutrophils % 45.6 Lymphocytes % 39.3 Monocytes % 11.3 H Eosinophils % 2.9 Basophils % 0.6 Nucleated Red Blood Cells % 0.0 Neutrophils # 3.0 Lymphocytes # 2.6 Monocytes # 0.8 Eosinophils # 0.2 Basophils # 0.0 Nucleated Red Blood Cells # 0.0 Sodium Level 141 Potassium Level 3.6 Chloride Level 100 Carbon Dioxide Level 30 Anion Gap 15 Blood Urea Nitrogen 38 H Creatinine 0.68 Glucose Level 138 Calcium Level 10.4 H Phosphorus Level 3.9 Magnesium Level 2.2 Albumin 3.2 L Medications Medications Current Medications Ondansetron HCl (Zofran Inj) 4 mg Q6H PRN IV NAUSEA AND/OR VOMITING; Start at 15:00 Acetaminophen (Tylenol Liquid) 650 mg Q6H PRN GTB PAIN LEVEL 1-3 OR FEVER Last administered on 09/06/16 09:12; Admin Dose 650 MG; Start 08/30/16 at 06:00 Digoxin (Digoxin) 0.125 mg DAILY@13 GTB Last administered on 09/19/16 12:14; Admin Dose 0.125 MG; Start 08/30/16 at 13:00 Magnesium Hydroxide (Milk Of Mag) 30 ml Q24H PRN GTB CONSTIPATION; Start at 19:30 Lansoprazole (Prevacid) 30 mg DAILY@06 GTB Last administered on 09/19/16 05:10 ; Admin Dose 30 MG; Start 08/30/16 at 07:00 Enoxaparin Sodium (Lovenox) 40 mg DAILY SC Last administered on 09/19/16 09:54 ; Admin Dose 40 MG; Start 08/31/16 at 09:00 Metoprolol Tartrate (Lopressor) 12.5 mg BID GTB Last administered on 09/19/16 09:53; Admin Dose 12.5 MG; Start 08/31/16 at 09:30 Aspirin (Aspirin) 81 mg DAILY NGT Last administered on 09/19/16 09:53; Admin Dose 81 MG; Start 09/02/16 at 09:00 Valsartan (Diovan) 80 mg DAILY GTB Last administered on 09/19/16 09:51; Admin Dose 80 MG; Start 09/02/16 at 09:00 Vancomycin HCl (Vancomycin Oral Syringe) 125 mg Q6 PEG Last administered on 12:14; Admin Dose 125 MG; Start 09/05/16 at 12:00 Furosemide (Lasix) 40 mg DAILY@06 GTB Last administered on 09/19/16 05:10; Admin Dose 40 MG; Start 09/09/16 at 06:00 Donepezil HCl (Aricept) 10 mg DAILY PO Last administered on 09/19/16 09:53; Admin Dose 10 MG; Start 09/10/16 at 09:30 Memantine (Namenda) 10 mg DAILY PO Last administered on 09/19/16t 09:52; Admin Dose 10 MG; Start 09/13/16 at 09:00 JENISE GERMAN MD September 19, 2016 13:04
[2016-09-19 20:27] VITALS: BP 119/53; RESP 18
[2016-09-19 21:21] VITALS: BP 111/63; PULSE 71
[2016-09-20 06:02] LABS: ALBUMIN 3.3 g/dl (3.3-4.9); ALBUMIN/GLOBULIN RATIO 0.78; BILIRUBIN,INDIRECT 0.2 mg/dl (0-1.1); BILIRUBIN,TOTAL 0.2 mg/dl (0.2-1.3); CREATININE 0.57 mg/dl (0.44-1.00); TOTAL PROTEIN 7.5 g/dl (6.1-8.1)
[2016-09-20] MEDS: LANSOPRAZOLE 30 MG CAP GTB SCH (06:05)
[2016-09-20] MEDS: LEVOTHYROXINE 125 MCG TAB GTB SCH (06:05)
[2016-09-20] MEDS: FUROSEMIDE 40 MG/4 ML CUP GTB SCH (06:05)
[2016-09-20] MEDS: VANCOMYCIN HCL 250 MG/5ML POSYG PEG SCH (06:06)
[2016-09-20 07:58] VITALS: BP 121/58; RESP 18
[2016-09-20] MEDS: MEMANTINE 10 MG TAB PO SCH (09:07)
[2016-09-20] MEDS: ASPIRIN 81 MG TAB NGT SCH (09:07)
[2016-09-20] MEDS: DONEPEZIL 10 MG TAB PO SCH (09:07)
[2016-09-20] MEDS: VALSARTAN 80 MG TAB GTB SCH (09:07)
[2016-09-20] MEDS: METOPROLOL 25 MG TAB GTB SCH (09:08)
[2016-09-20] MEDS: ENOXAPARIN 40 MG/0.4 ML SYG SC SCH (09:09)
--- NOTE | 2016-09-20 10:54 | PDOCDIS ---
Discharge Instructions DIAGNOSIS Discharge Diagnosis: CVA CONDITION Patient Condition: Fair HOME CARE INSTRUCTIONS: Diet Instructions: Special Diet: GT feeding ACTIVITY: Activity Restrictions: Slowly Increase Activity Rest between Activity Weight Bearing Special Exercises Bathing Restrictions: Shower FOLLOW UP/APPOINTMENTS Appointments JENISE Samuel MD September 20, 2016 10:54
--- NOTE | 2016-09-20 11:05 | PN ---
Date/Time of Note Date/Time of Note DATE: 09/20/16 TIME: 11:03 Assessment/Plan VTE Prophylaxis VTE Prophylaxis Intervention: LMWH Lines/Catheters IV [facility]from [facility] Saline Lock Urinary Cath still in place: No Assessment/Plan Chief Complaint/Hosp Course 1. CVA , with expressive aphasia and L hemiparesis 2. chronic a fib 3. CHF , improved . 4. pneumonia , improved 5. C difficle infection , treated 6. dysphagia , with tube feeding 7. discharge planning is in progress .If SNF bed is available today then patient will be discharged . Problems: Subjective 24 Hr Interval Summary Free Text/Dictation she is more lethargic today . Subjective hx not possible: pt non-verbal Exam/Review of Systems Vital Signs Vitals Vital Signs Date Time Temp Pulse Resp B/P Pulse Ox O2 Delivery O2 Flow Rate FiO2 09/20/16 07:58 98.4 72 18 121/58 95 Intake and Output 09/19/16 09/19/16 09/20/16 15:00 23:00 07:00 Intake Total 630 ml 650 ml Balance 630 ml 650 ml Exam Constitutional: frail, non-verbal Neck: supple Respiratory: clear to auscultation, diminished breath sounds Cardiovascular: irregular rhythm Gastrointestinal: soft Musculoskeletal: nl extremities to inspection Results Result Diagram: 09/19/16 0700 09/20/16 0430 Results 24 hrs Laboratory Tests Test 09/20/16 04:30 Sodium Level 138 Potassium Level 4.0 Chloride Level 102 Carbon Dioxide Level 29 Anion Gap 11 Blood Urea Nitrogen 39 H Creatinine 0.57 Glucose Level 167 Calcium Level 10.0 Total Bilirubin 0.2 Direct Bilirubin 0.00 Indirect Bilirubin 0.2 Aspartate Amino Transf (AST/SGOT) 44 Alanine Aminotransferase (ALT/SGPT) 44 Alkaline Phosphatase 169 H Total Protein 7.5 Albumin 3.3 Globulin 4.20 H Albumin/Globulin Ratio 0.78 Medications Medications Current Medications Ondansetron HCl (Zofran Inj) 4 mg Q6H PRN IV NAUSEA AND/OR VOMITING; Start at 15:00 Acetaminophen (Tylenol Liquid) 650 mg Q6H PRN GTB PAIN LEVEL 1-3 OR FEVER Last administered on 09/06/16t 09:12; Admin Dose 650 MG; Start 08/30/16 at 06:00 Digoxin (Digoxin) 0.125 mg DAILY@13 GTB Last administered on 09/19/16 12:14; Admin Dose 0.125 MG; Start 08/30/16 at 13:00 Magnesium Hydroxide (Milk Of Mag) 30 ml Q24H PRN GTB CONSTIPATION; Start at 19:30 Lansoprazole (Prevacid) 30 mg DAILY@06 GTB Last administered on 09/20/16 06:05 ; Admin Dose 30 MG; Start 08/30/16 at 07:00 Enoxaparin Sodium (Lovenox) 40 mg DAILY SC Last administered on 09/20/16 09:09 ; Admin Dose 40 MG; Start 08/31/16 at 09:00 Metoprolol Tartrate (Lopressor) 12.5 mg BID GTB Last administered on 09/20/16 09:08; Admin Dose 12.5 MG; Start 08/31/16 at 09:30 Aspirin (Aspirin) 81 mg DAILY NGT Last administered on 09/20/16 09:07; Admin Dose 81 MG; Start 09/02/16 at 09:00 Valsartan (Diovan) 80 mg DAILY GTB Last administered on 09/20/16 09:07; Admin Dose 80 MG; Start 09/02/16 at 09:00 Vancomycin HCl (Vancomycin Oral Syringe) 125 mg Q6 PEG Last administered on 06:06; Admin Dose 125 MG; Start 09/05/16 at 12:00 Furosemide (Lasix) 40 mg DAILY@06 GTB Last administered on 09/20/16 06:05; Admin Dose 40 MG; Start 09/09/16 at 06:00 Donepezil HCl (Aricept) 10 mg DAILY PO Last administered on 09/20/16 09:07; Admin Dose 10 MG; Start 09/10/16 at 09:30 Memantine (Namenda) 10 mg DAILY PO Last administered on 09/20/16 09:07; Admin Dose 10 MG; Start 09/13/16 at 09:00 JENISE GERMAN MD September 20, 2016 11:05
[2016-09-20] MEDS: DIGOXIN 0.125 MG TAB GTB SCH (13:45)
[2016-09-21] MEDS ORDERED: FUROSEMIDE 40 MG/4 ML CUP GTB SCH (06:00)
--- NOTE | 2016-09-26 09:11 | DS ---
DATE OF ADMISSION: 08/29/2016 DATE OF DISCHARGE: 09/20/2016 HISTORY OF PRESENT ILLNESS: This is an 89-year-old female transferred from [facility] with a bender e in mental status and transient hypotension with known dense left hemiparesis, atrial fibrillation, and hypertension. EXAMINATION ON ADMISSION: VITAL SIGNS: BP 118/60, respirations were 18. She was afebrile. LUNGS: Clear. HEART: Irregularly irregular. ABDOMEN: PEG was in place, not distended. NEUROLOGIC: She was unresponsive, not moving her arms and legs spontaneously or opening her eyes. LABORATORY AND DIAGNOSTIC STUDIES: On admission, hematocrit of 31, white count 14,800, platelets we re 219,000. On discharge, hematocrit 41.6, white count 6600, platelet count 256,000. Her lowest he matocrit was 26.3 and after 2 units of packed cells it increased to 36.1. Chemistries on admission: Lytes were normal. AST was 150, ALT was 186. Troponin 0.124, bilirubin was normal. On August 30t h, AST, ALT, and alkaline phosphatase 73, 123, and 164. Iron studies revealed iron deficiency. TSH was 0.149, reflecting mild hyperthyroidism. On August 31, AST, ALT, and alkaline phosphatase 58, 90, and 165 respectively. Prolactin was elevated at 2.76. On September 06, AST, ALT, and alkaline phosp hatase 53, 59, and 203. On discharge 44, 44, and 169 respectively. Blood and urine cultures reveal ed no growth. IMAGING STUDIES: On admission, revealed questionable right middle lobe infiltrate with CT of the est on the revealing mild bronchial wall thickening, an area of consolidation and ground glass in the left upper lobe with small right and trace left pleural effusions, moderate cardiomegaly was present. CT of the brain: Subacute to chronic infarct in the right middle cerebral artery distribu tion with cortical laminar necrosis, otherwise no abnormalities. Chest x-ray on September 07, stable pul monary vascular congestion and interstitial prominence in both lungs, stable perihilar infiltrates t hroughout the right lung and small right pleural effusion. HOSPITAL COURSE: The patient was seen by infectious disease, Dr. Evans, who felt bronchitis/pneumoni a was present and started broad-spectrum antimicrobial therapy with improvement in her pulmonary sta tus, along with inhaled bronchodilators. C diff was also noted and treated with repeat Clostridium difficile in the stool notably negative. Prior to discharge, she was seen by Dr. Brian Brar who f elt that she may have had a transient cholangitis, but felt no other intervention needed given abnor mal liver tests on admission that resolved. She was seen in neurology consultation with respect to altered mental status. No seizure activity was noted on EEG and her mental status continued to impr ove with continued to improve up until the time of discharge. She did have mild congestive heart fa ilure as well that responded to diuretic therapy and reinstitution of Diovan. DISCHARGE DIAGNOSES: 1. Fever, probably related to pneumonia and questionable cholangitis, resolved. 2. Altered mental status secondary to "infection" with underlying dementia an antecedent stroke, st able. 3. Clostridium difficile colitis, resolved with appropriate antimicrobial treatment. 4. Dense left hemiparesis. 5. Chronic atrial fibrillation. It was felt that other than aspirin she was a high risk for fallin g, and it was elected at least a year ago, not to begin Coumadin or equivalent. 6. Having discussed with the patient's daughter serially, my concern that she not "suffer" and she has agreed to NO CPR, NO INTUBATION status. The question of hospice was reviewed with the daughter, but at this point felt she did not want to begin this intervention. DISPOSITION: To be transferred to [facility] with continued tube feeding at 50 mL an hour king g with atorvastatin 80 mg per day, digoxin 0.125 per day, Aricept 10 mg per day, Lexapro 5 mg per da y, levothyroxine 150 mcg per day, Namenda 10 per day, omeprazole 20 mg per day, along with Lasix 20 mg per day, and Diovan 80 mg per day. Dictated By: CHANG BECERRA MD MR/NTS Conf#: [id number] DID#: [id number]
== END 2016-09-20 18:48 | DRG 177 ==
LOC: E/R 08:32 → PP2 12:06
PROVIDERS: ADMIT Internal Medicine; ATTEND Internal Medicine
DX: J69.0 Pneumonitis due to inhalation of food and vomit (principal); I21.4 Non-ST elevation (NSTEMI) myocardial infarction; G93.41 Metabolic encephalopathy; A04.7 Enterocolitis due to Clostridium difficile; K83.0 Cholangitis; I69.354 Hemiplegia and hemiparesis following cerebral infarction affecting left non-dominant side; I48.2 Chronic atrial fibrillation; R13.10 Dysphagia, unspecified; I69.391 Dysphagia following cerebral infarction; F03.90 Unspecified dementia, unspecified severity, without behavioral disturbance, psychotic disturbance, mood disturbance, and anxiety; I69.320 Aphasia following cerebral infarction; I10 Essential (primary) hypertension; Z66 Do not resuscitate; E03.9 Hypothyroidism, unspecified; E21.0 Primary hyperparathyroidism; M81.0 Age-related osteoporosis without current pathological fracture; Z51.5 Encounter for palliative care; Z91.81 History of falling; Z95.0 Presence of cardiac pacemaker
CPT/HCPCS: 36415; 36430; 36600; 70450; 71010; 71250; 76700; 80048; 80053; 80162; 80202; 81001; 81003; 82040; 82140; 82150; 82270; 82728; 82803; 83540; 83605; 83690; 83735; 83880; 84100; 84145; 84443; 84484; 85025; 85610; 85730; 86850; 86900; 86901; 86920; 87040; 87075; 87081; 87086; 93005; 94640; 94664; 95819; 96361; 96365; 96367; 96368; 97110; 97162; 97530; J1940; J0692; J1650; J2185; J2916; J3370; J7030; J7040; J7042; J7050; J7070; P9016